=== PATIENT | female | born 1955 | race Caucasian/White ===

== ENCOUNTER 2020-04-21 09:56 | Outpatient (REF) | payer MEDICARE, MEDICAID, SELFPAY ==
[2020-04-23 18:27] LABS: HPV mRNA E6/E7 Not Detected (Not Detected)
== END 2020-04-21 09:57 | disposition home or self-care (01) ==
LOC: HO.LAB 09:56
PROVIDERS: Referring Provider Internal Medicine; Visit Provider Obstetrics & Gynecology
DX: Z01.419 Encounter for gynecological examination (general) (routine) without abnormal findings (principal); R30.0 Dysuria; N95.0 Postmenopausal bleeding
CPT/HCPCS: 87086; 87147; 87624; 87625; 88142; 88305

== ENCOUNTER 2020-07-30 10:44 | Outpatient (REF) | payer MEDICARE, MEDICAID, SELFPAY ==
--- NOTE | 2020-07-30 10:48 | US_ITS ---
EXAMINATION: ULTRASOUND OF THE PELVIS CLINICAL INFORMATION: Postmenopausal bleeding. COMPARISON: 10/05/2017. TECHNIQUE: Transabdominal pelvic ultrasound. The patient refused the transvaginal examination. FINDINGS: The uterus is normal in size and appearance, measuring 7.5 x 4.5 x 5.2 cm longitudinally, anteroposteriorly and transversely. The endometrial stripe thickness is upper limit of normal, measuring 0.5 cm in thickness. No focal myometrial mass is seen. The right ovary is not seen. The left ovary measures 1.9 x 2.1 x 1.4 cm. No adnexal mass or free fluid collection seen. US/US pelvic complete IMPRESSION: Normal appearance of the uterus on this transabdominal evaluation. Endometrial thickness at the upper limit of normal. The right ovary is not seen. No adnexal mass.
== END 2020-07-30 10:45 | disposition home or self-care (01) ==
LOC: HO.US 10:44
PROVIDERS: Visit Provider Obstetrics & Gynecology
DX: N95.0 Postmenopausal bleeding (principal)
CPT/HCPCS: 76856

== ENCOUNTER → 2020-08-03 13:48 | Outpatient (BNVA) | payer MEDICARE, MEDICAID, SELFPAY | PROVIDERS: Visit Provider Obstetrics & Gynecology | DX: N95.0 Postmenopausal bleeding (principal) | CPT/HCPCS: 99212 ==

== ENCOUNTER → 2020-08-11 07:51 | Outpatient (BNVA) | payer MEDICARE, MEDICAID, SELFPAY | PROVIDERS: Visit Provider Obstetrics & Gynecology | DX: N95.0 Postmenopausal bleeding (principal) | CPT/HCPCS: Q3014 ==

== ENCOUNTER 2020-08-13 08:52 | Day surgery (SDC) | payer MEDICARE, MEDICAID, SELFPAY ==
[2020-08-07 13:20] VITALS: BMI 53.2
--- NOTE | 2020-08-12 12:20 | P.CONAN_ITS ---
Documented by User: Anuradha Mckeon 08/12/20 12:29 HPI - Anesthesia Eval Consult details Narrative: 64yo F for Salpingectomy Laproscopic PMFSH Active Problems Active Problems: All Active Problems (Updated 08/07/20 @ 13:28 by Lori Huertas) Postmenopausal bleeding (Acute) Coronary artery disease (Acute) Hypercholesterolemia (Acute) Obesity (Acute) GERD (gastroesophageal reflux disease) (Acute) Hypertension (Acute) Obstructive sleep apnea (Acute) Past Medical History Medical History Carpal tunnel syndrome Cholelithiasis Coronary artery disease Depression GERD (gastroesophageal reflux disease) History of back pain Hx of essential hypertension Hypercholesterolemia Hypertension Obesity Obstructive sleep apnea Peripheral neuropathy Peripheral vascular disease Pulmonary nodule, left Seizures Vitamin D deficiency Family History Family History Father Myocardial infarction Mother Medical history unknown Paternal Aunt Breast cancer Surgical History Surgical History H/O foot surgery History of History of carpal tunnel release History of tonsillectomy Hx of cholecystectomy Hx of colonoscopy Stented coronary artery Social History Social History Are you a primary managed care liaison to a significant other at home: No Do you presently have visiting nurse or other home services: No Alcohol intake: never Smoking Status: Former smoker Smoking Quit Date: 2004 Use of substances other than those prescribed or required for medical reasons: No Have you been hit, kicked, punched, or otherwise hurt by someone within the past year? If so, by whom?: No Advance Directives: No Advance Directives Information Provided: No Advance Directives on File: No Recently lost weight without trying: No Sexual orientation: Straight/Heterosexual Gender identity: female Meds Allergies Allergy/AdvReac Type Severity Reaction Status Date / Time adhesive tape [ADHESIVE TAPE] Allergy Intermediate RASH Verified 08/13/20 10:18 atorvastatin Allergy Unknown Unknown Verified 08/13/20 10:18 Home Medications Medication Instructions Recorded Confirmed Last Taken Type docusate sodium 100 mg capsule 100 mg PO DAILY 04/21/20 08/07/20 Unknown History rosuvastatin 20 mg tablet 20 mg PO DAILY 04/21/20 08/07/20 Unknown History lisinopril 20 mg tablet 20 mg PO DAILY 05/05/20 08/07/20 Unknown History gabapentin 100 mg capsule 100 mg PO DAILY PRN cap 06/16/20 08/07/20 Unknown History acetaminophen [Tylenol] 650 mg PO QID PRN 08/07/20 08/07/20 Unknown History aspirin 81 mg PO DAILY 08/07/20 08/07/20 Unknown History fluticasone propionate 1 spray INTRANASAL DAILY 08/07/20 08/07/20 Unknown History metoprolol succinate 25 mg PO DAILY 08/07/20 08/13/20 08/13/20 07:15 History Exam Exam Date and Time: August 12, 2020 1220 Height,Weight and Vital Signs: Height 5 ft 6 in Weight 149.685 kg Narrative Narrative: ECHO 02/2020 LV size nml, LV wall thickness is mildly increased LV sys function nml LVEF 60-65% No RWMA E/E ration suggests increased L side filling pressures Disatolic function is abnormal No significant valve disease No significant pericardial effusion No changes from 2017 Echo. Assessment and Plan Assessment Anesthesia Assessment: Chart Reviewed Documented by User: Shayla Tian 08/13/20 11:50 PMFSH Past Medical History Medical History Carpal tunnel syndrome Cholelithiasis Coronary artery disease Depression GERD (gastroesophageal reflux disease) History of back pain Hx of essential hypertension Hypercholesterolemia Hypertension Obesity Obstructive sleep apnea Peripheral neuropathy Peripheral vascular disease Pulmonary nodule, left Seizures Vitamin D deficiency Family History Family History Father Myocardial infarction Mother Medical history unknown Paternal Aunt Breast cancer Surgical History Surgical History H/O foot surgery History of History of carpal tunnel release History of tonsillectomy Hx of cholecystectomy Hx of colonoscopy Stented coronary artery Social History Social History Are you a primary managed care liaison to a significant other at home: No Do you presently have visiting nurse or other home services: No Alcohol intake: never Smoking Status: Former smoker Smoking Quit Date: 2004 Use of substances other than those prescribed or required for medical reasons: No Have you been hit, kicked, punched, or otherwise hurt by someone within the past year? If so, by whom?: No Advance Directives: No Advance Directives Information Provided: No Advance Directives on File: No Recently lost weight without trying: No Sexual orientation: Straight/Heterosexual Gender identity: female Meds Allergies Allergy/AdvReac Type Severity Reaction Status Date / Time adhesive tape [ADHESIVE TAPE] Allergy Intermediate RASH Verified 08/13/20 10:18 atorvastatin Allergy Unknown Unknown Verified 08/13/20 10:18 Home Medications Medication Instructions Recorded Confirmed Last Taken Type docusate sodium 100 mg capsule 100 mg PO DAILY 04/21/20 08/07/20 Unknown History rosuvastatin 20 mg tablet 20 mg PO DAILY 04/21/20 08/07/20 Unknown History lisinopril 20 mg tablet 20 mg PO DAILY 05/05/20 08/07/20 Unknown History gabapentin 100 mg capsule 100 mg PO DAILY PRN cap 06/16/20 08/07/20 Unknown History acetaminophen [Tylenol] 650 mg PO QID PRN 08/07/20 08/07/20 Unknown History aspirin 81 mg PO DAILY 08/07/20 08/07/20 Unknown History fluticasone propionate 1 spray INTRANASAL DAILY 08/07/20 08/07/20 Unknown History metoprolol succinate 25 mg PO DAILY 08/07/20 08/13/20 08/13/20 07:15 History Exam Airway Mallampati Class: II TM Dist: >3cm Neck ROM: Full Assessment and Plan Assessment Anesthesia Assessment: Anesthesia Plan Discussed and Chart Reviewed Final Anesthetic Review NPO: Yes ASA Class: III Final Preanesthetic Review: No Changes in Pt Med Stat, Meds/Allgs Chart Reviewed, Consent Obtained/Reviewed and Anes Risks/Benef Reviewed Patient Risk: Intermediate Procedure Risk: Low Assessment/Block/Sedation in SS: Assess/Block/Sedation-SS Anesthetic Plan Anesthetic Plan: MAC: Disposition: Standard PACU
[2020-08-13] VITALS (9 sets, daily range): BP systolic 144–172; BP diastolic 64–82; PULSE 62–75; RESP 16–20; TEMP 36.1–36.7; O2SAT 90–99
[2020-08-13] MEDS: Lactated Ringers 1,000 ML 50 ML IVCONT (10:22)
--- NOTE | 2020-08-13 11:40 | MHC.SHP ---
Pre-Procedural Eval Section A The patient is an INPATIENT: No Changes since office visit: No Cold of Flu in the past 2 weeks, No New Medical Problems, No Changes in Medication and No Patient answered all questions The History & Physical has been completed within 30 days and I have reviewed it.: Yes Section B Chief Complaint: bleeding Allergies: Allergies Allergy/AdvReac Type Severity Reaction Status Date / Time adhesive tape [ADHESIVE TAPE] Allergy Intermediate RASH Verified 08/13/20 10:18 atorvastatin Allergy Unknown Unknown Verified 08/13/20 10:18 Plan I have reviewed the history and physical and performed a pertinent physical examination on my patient. No changes have occurred unless specified.
--- NOTE | 2020-08-13 12:12 | HO.ANESPROP2 ---
[facility] Active Problems Active Problems: All Active Problems (Updated 08/07/20 @ 13:28 by Lori Huertas) Postmenopausal bleeding (Acute) Coronary artery disease (Acute) Hypercholesterolemia (Acute) Obesity (Acute) GERD (gastroesophageal reflux disease) (Acute) Hypertension (Acute) Obstructive sleep apnea (Acute) Past Medical History Medical History Carpal tunnel syndrome Cholelithiasis Coronary artery disease Depression GERD (gastroesophageal reflux disease) History of back pain Hx of essential hypertension Hypercholesterolemia Hypertension Obesity Obstructive sleep apnea Peripheral neuropathy Peripheral vascular disease Pulmonary nodule, left Seizures Vitamin D deficiency Family History Family History Father Myocardial infarction Mother Medical history unknown Paternal Aunt Breast cancer Surgical History Surgical History H/O foot surgery History of History of carpal tunnel release History of tonsillectomy Hx of cholecystectomy Hx of colonoscopy Stented coronary artery Social History Social History Are you a primary childcare center administrator to a significant other at home: No Do you presently have visiting nurse or other home services: No Alcohol intake: never Smoking Status: Former smoker Smoking Quit Date: 2004 Use of substances other than those prescribed or required for medical reasons: No Have you been hit, kicked, punched, or otherwise hurt by someone within the past year? If so, by whom?: No Advance Directives: No Advance Directives Information Provided: No Advance Directives on File: No Recently lost weight without trying: No Sexual orientation: Straight/Heterosexual Gender identity: female Meds Allergies Allergy/AdvReac Type Severity Reaction Status Date / Time adhesive tape [ADHESIVE TAPE] Allergy Intermediate RASH Verified 08/13/20 10:18 atorvastatin Allergy Unknown Unknown Verified 08/13/20 10:18 Active Medications: Current Medications Generic Name Dose Route Start Last Admin Trade Name Freq PRN Reason Stop Dose Admin Lactated Ringer's 1,000 mls @ 50 mls/hr 08/13/20 09:45 08/13/20 10:22 Lr IVCONT 50 mls/hr .Q20H CEE Administration Home Medications Medication Instructions Recorded Confirmed Last Taken Type docusate sodium 100 mg capsule 100 mg PO DAILY 04/21/20 08/07/20 Unknown History rosuvastatin 20 mg tablet 20 mg PO DAILY 04/21/20 08/07/20 Unknown History lisinopril 20 mg tablet 20 mg PO DAILY 05/05/20 08/07/20 Unknown History gabapentin 100 mg capsule 100 mg PO DAILY PRN cap 06/16/20 08/07/20 Unknown History acetaminophen [Tylenol] 650 mg PO QID PRN 08/07/20 08/07/20 Unknown History aspirin 81 mg PO DAILY 08/07/20 08/07/20 Unknown History fluticasone propionate 1 spray INTRANASAL DAILY 08/07/20 08/07/20 Unknown History metoprolol succinate 25 mg PO DAILY 08/07/20 08/13/20 08/13/20 07:15 History Exam Exam Date and Time: August 13, 2020 1212 Height,Weight and Vital Signs: Height 5 ft 6 in Weight 149.685 kg Last Vital Signs Temp 98.0 F 08/13/20 09:45 Pulse 66 08/13/20 09:45 Resp 20 08/13/20 09:45 BP 144/75 H 08/13/20 09:45 Pulse Ox 98 08/13/20 09:45 Airway Mallampati Class: II TM Dist: >3cm Neck ROM: Limited
--- NOTE | 2020-08-13 12:43 | P.OP_ITS ---
Operative Note Operative Note Date of Service: 08/13/20 Narrative: Ms. Salazar is a 64 year old postmenopausal woman with postmenopausal bleeding. She presents today for hysteroscopy d&c for endometrial sampling after EMB in the office was insufficient and pelvic US showed a thickened endometrial lining of 5mm. Surgical Risks: The patient was informed of the risks and benefits of a hysteroscopy with dilation and curettage. Risks included but were not limited to bleeding, infection, injury to the vulva, vagina, or cervix, and uterine perforation with possible need for further surgery. The patient expressed understanding of the risks involved, all questions were answered, and the pa tient consented to the procedure. The patient was taken to the operating room where a time out was confirmed to confirm correct patient and correct procedure. Adequate IV sedation was established. The patient was then positioned on the operating table in the dorsal lithotomy position with her legs supported using stirrups. All pressure points were padded and a warm blanket was placed to maintain control of core body temperature. The patient was then prepped and draped in the usual sterile fashion. A straight catheter was inserted into the bladder and 100mL of urine was obtained. A bivalve speculum was then inserted into the vagina. The anterior lip of the cervix was visualized and grasped using a single tooth tenaculum. The cervix was adequately dilated using Daryl dilators for the introduction of the hysteroscope. The hysteroscope was introduced under direct visualization using normal saline solution as the distending media. The hysteroscope was advanced to the fundus and the entire uterine cavity was inspected. A polyp was noted on the right posterior aspect of the uterus, and on the left side wall. The myosure was introduced and advanced and directed sharp curettage of both polyps was performed until they were removed. A white lesion that appeared almost like a calcification was noted on the left posterior fundus and this was also removed with the myosure. The hysteroscope was then removed with the myosure within the hysteroscope and a sharp curetting was performed starting at the 12 o?clock position and rotating a total of 360 degrees in order to cover all surfaces. E ndometrial tissue was obtained and was sent to pathology. Following the curetting, good hemostasis was noted. The single-tooth tenaculum was removed from the anterior lip of the cervix and hemostasis was also noted at the tenaculum puncture sites. The speculum was then removed from the vagina. At the end of the procedure, all needle, sponge, and instrument counts were noted to be correct x2. The patient was transferred to the recovery room in stable condition.
[2020-08-13] MEDS: oxyCODONE HCl Immed Release 5 MG TABLET 10 MG PO (13:05)
[2020-08-13] MEDS: fentaNYL citrate/PF 100 MCG/2 ML VIAL 50 MCG IVPUSH (13:06)
--- NOTE | 2020-08-13 17:46 | HO.POSTANES ---
Post Anesthesia Evaluation Post Anesthesia Evaluation Vital Signs: Vital Signs Temp Pulse Resp BP Pulse Ox 08/13/20 13:51 67 16 160/78 H 99 08/13/20 13:36 66 16 172/75 H 99 08/13/20 13:21 62 16 169/82 H 99 08/13/20 13:15 99 08/13/20 13:12 68 16 90 L 08/13/20 13:06 68 16 170/64 H 97 08/13/20 12:55 71 16 171/74 H 97 08/13/20 12:40 97 F 75 16 163/71 H 97 08/13/20 09:45 98.0 F 66 20 144/75 H 98 Anesthesia: Monitored Mental Status: Awake Pain Control: Satisfactory Nausea/Vomiting: None Hydration: Adequate Anesthesia-Related Issues: No Anes. Related Issues
== END 2020-08-13 15:06 | disposition home or self-care (01) ==
LOC: HO.SSS 08:52
PROVIDERS: Visit Provider Obstetrics & Gynecology
PROC: (CPT 58558; principal; 2020-08-13 11:20)
DX: N95.0 Postmenopausal bleeding (principal); N84.0 Polyp of corpus uteri; Z88.8 Allergy status to other drugs, medicaments and biological substances; G47.33 Obstructive sleep apnea (adult) (pediatric); R56.9 Unspecified convulsions; I10 Essential (primary) hypertension; E66.9 Obesity, unspecified; Z68.43 Body mass index [BMI] 50.0-59.9, adult; Z90.49 Acquired absence of other specified parts of digestive tract; Z79.82 Long term (current) use of aspirin; Z79.899 Other long term (current) drug therapy
CPT/HCPCS: 58558; 88305; J2405; J3010

== ENCOUNTER 2020-12-17 06:31 | Outpatient (REF) | payer MEDICARE, MEDICAID, SELFPAY ==
[2020-12-17 06:50] LABS: MANUAL DIFF FLAG NO
[2020-12-17 07:04] LABS: Basophils Percent Auto 0.3 % (0-2); Eosinophils Absolute Auto 0.4 X10*3/uL (0.0-0.4); Eosinophils Percent Auto 4.5 % (0-4); Hematocrit 44.4 % (37-47); Hemoglobin 14.3 g/dl (12.0-16.0); Imm Gran Abs Auto 0.03 X10*3/uL (0.00-0.03); Imm Gran Pct Auto 0.3 % (0.0-0.4); Lymphocytes Absolute Auto 2.9 X10*3/uL (1.2-4.9); Lymphocytes Percent Auto 32.2 % (20-40); Mean Corpuscular HGB Conc 32.2 g/dl (31.0-35.0); Mean Corpuscular Hemoglobin 27.7 pg (27.0-33.0); Mean Platelet Volume 11.7 fL (9.4-12.3); Monocytes Absolute Auto 0.9 X10*3/uL (0.1-1.2); Monocytes Percent Auto 10.4 % (2-11); Neutrophils Absolute Auto 4.6 X10*3/uL (2.0-8.3); Neutrophils Percent Auto 52.3 % (45-73); Platelet Count 223 X10*3/uL (160-400); Red Blood Count 5.16 X10*6/uL (4.20-5.50); Red Cell Distribution Width 15.2 % (11.0-16.0); White Blood Count 8.8 X10*3/uL (4.8-10.8)
[2020-12-17 07:13] LABS: Alanine Aminotransferase 26 U/L (0-31); Albumin Level 3.9 g/dL (3.5-5.0); Alkaline Phosphatase 196 U/L (39-117); Anion Gap 11 (12-20); Aspartate Amino Transferase 32 U/L (5-31); Bilirubin Total 0.5 mg/dL (0.0-1.0); Blood Urea Nitrogen 15 mg/dL (9-16); Calcium 9.5 mg/dL (8.4-10.2); Carbon Dioxide 31 mmol/L (22-29); Chloride 103 mmol/L (96-108); Cholesterol 205 mg/dL; Estimated Glomerular Filt Rate > 60; Glucose Random 97 mg/dL (60-115); HDL Cholesterol 54 mg/dL; LDL Cholesterol Calculated 128 mg/dl; Potassium 4.7 mmol/L (3.3-5.1); Sodium 140 mmol/L (135-145); Total Protein 7.1 g/dL (6.5-8.0); Triglycerides 116 mg/dL
[2020-12-17 07:35] LABS: Free T4 (Free Thyroxine) 1.19 ng/dL (0.71-1.85); Thyroid Stimulating Hormone 1.34 uIU/mL (0.32-4.0)
[2020-12-17 07:47] LABS: Folate 13.9 ng/mL (> or = 4.0); Vitamin B12 564 pg/mL (200-900)
[2020-12-17 08:56] LABS: Glucose Urine UA NEG (NEG); Leukocyte Esterase Urine 1+ (NEG); Nitrite Urine NEG (NEG); Specific Gravity - Urine 1.025 (1.005-1.025); UACC Culture Trigger YES; Urine Blood NEG (NEG); Urine Ketones NEG (NEG); Urine Protein NEG (NEG-TRACE)
[2020-12-17 09:07] LABS: Appearance Urine CLOUDY; Color Urine YELLOW
[2020-12-17 09:14] LABS: Bacteria Urine 1+ /LPF; Mucus Urine 2+ /LPF; RBC Urine 0 /HPF (0); Squamous Epithelial Cell Urine 2+ /LPF
== END 2020-12-17 06:32 | disposition home or self-care (01) ==
LOC: HO.LAB 06:31
PROVIDERS: PCP Internal Medicine; Visit Provider Internal Medicine
DX: I10 Essential (primary) hypertension (principal); I25.10 Atherosclerotic heart disease of native coronary artery without angina pectoris; E78.00 Pure hypercholesterolemia, unspecified; R30.0 Dysuria
CPT/HCPCS: 36415; 80053; 80061; 81001; 81003; 82306; 82607; 82746; 84439; 84443; 85025; 87086; 87088; 87186

== ENCOUNTER 2020-12-24 08:32 | Outpatient (REF) | payer MEDICARE, MEDICAID, SELFPAY ==
--- NOTE | ~2020-12-24 | MM_ITS ---
EXAMINATION: MM SCREENING DIGITAL BREAST TOMOSYNTHESIS, BILATERAL CLINICAL INFORMATION: Screening. Asymptomatic. The lifetime risk of breast cancer based on the Tyrer-Cuzick Model is 8%. COMPARISON: Mammography: 06/10/2016, 06/03/2016, 08/30/2014; bilateral breast ultrasound 06/10/2016 TECHNIQUE: Digital breast tomosynthesis is performed in both the craniocaudal and mediolateral oblique views along with computer-aided detection (CAD). Synthesized 2D images are generated from the tomosynthesis. Additional bilateral MLO views are provided. FINDINGS: There are scattered areas of fibroglandular density (ACR BI-RADS breast composition Category b). Parenchymal pattern is similar to prior exams. There is no developing density or interval mass or architectural abnormality. There are no suspicious calcifications. Scattered bilateral punctate calcifications are again seen. The axilla and skin contours are unremarkable. MM/MM tomosynthesis screening BI IMPRESSION: No mammographic evidence of malignancy. ASSESSMENT: BI-RADS 2: Benign RECOMMENDATION: Routine annual mammography screening. This patient's information was entered into a reminder system with a target due date for their next mammogram.
== END 2020-12-24 08:33 | disposition home or self-care (01) ==
LOC: HO.MAMMO 08:32
PROVIDERS: Visit Provider Internal Medicine
DX: Z12.31 Encounter for screening mammogram for malignant neoplasm of breast (principal)
CPT/HCPCS: 77063; 77067

== ENCOUNTER 2021-07-20 08:07 | Outpatient (REF) | payer MEDICARE, MEDICAID, SELFPAY ==
--- NOTE | ~2021-07-20 | US_ITS ---
EXAMINATION: US ABDOMEN COMPLETE CLINICAL INFORMATION: Abnormal findings of blood chemistry. GERD. COMPARISON: CT abdomen 02/27/2012 report only. Images not available. TECHNIQUE: Real-time imaging of the abdominal viscera. Technically difficult study secondary to body habitus. FINDINGS: PANCREAS: Normal. ABDOMINAL AORTA: The proximal, mid, and distal segments are normal in caliber. INFERIOR VENA CAVA: Visualized portions are normal. LIVER: The liver is normal in size. The liver contour is normal. Liver echotexture is increased. No focal hepatic lesion. There is no intrahepatic biliary duct dilatation seen. GALLBLADDER: Surgically absent. COMMON BILE DUCT: Normal in caliber measuring 0.4 cm in diameter. RIGHT KIDNEY: Normal. No hydronephrosis. No renal calculi or focal parenchymal lesions. The kidney measures 12.2 cm in maximum dimension. LEFT KIDNEY: Normal. No hydronephrosis. No renal calculi or focal parenchymal lesions. The kidney measures 11.2 cm in maximum dimension. SPLEEN: Normal. The spleen measures 9.2 cm in maximum dimension. FREE FLUID: None. US/US abdomen complete IMPRESSION: Limited exam. Echogenic liver probably representing fatty infiltration.
== END 2021-07-20 08:08 | disposition home or self-care (01) ==
LOC: HO.US 08:07
PROVIDERS: PCP Internal Medicine; Visit Provider Internal Medicine
DX: R79.89 Other specified abnormal findings of blood chemistry (principal); R74.8 Abnormal levels of other serum enzymes; K21.9 Gastro-esophageal reflux disease without esophagitis
CPT/HCPCS: 76700

== ENCOUNTER 2021-09-10 08:56 | Outpatient (REF) | payer MEDICARE, MEDICAID, SELFPAY ==
--- NOTE | ~2021-09-10 | XR_ITS ---
EXAMINATION: XR CHEST CLINICAL INFORMATION: This is a 65-year-old female. Covid 19. COMPARISON: Comparison is made to a preliminary image from a CT scan dated 12/23/2015. TECHNIQUE: 2 views of the chest were obtained. FINDINGS: There is a probable subcentimeter granuloma in the left midlung field which was present previously and appears unchanged. On the lateral view there are increased patchy markings in the medial segment of the right middle lobe. There are also in the left lower lobe. This may represent subsegmental pneumonitis. The pulmonary vascularity appears within normal limits and there is no congestive heart failure. The cardiomediastinal silhouette appears within normal limits. The diaphragm is sharp and there are no pleural effusions. Degenerative disc disease with associated bony changes are noted in the thoracic spine. Multiple surgical clips are seen in the right upper quadrant likely from a previous cholecystectomy. XR/XR chest 2V IMPRESSION: 1. Possible subsegmental pneumonitis in the medial segment of the right middle lobe and the left lower lobe.
[2021-09-10 10:09] LABS: Appearance Urine CLOUDY; Color Urine YELLOW; Glucose Urine UA NEG (NEG); Leukocyte Esterase Urine 1+ (NEG); Nitrite Urine POS (NEG); Specific Gravity - Urine 1.025 (1.005-1.025); UACC Culture Trigger YES; Urine Blood 2+ (NEG); Urine Ketones NEG (NEG); Urine Protein NEG (NEG-TRACE)
[2021-09-10 10:40] LABS: B Type Natriuretic Peptide 26 pg/mL (<100)
[2021-09-10 10:48] LABS: Alanine Aminotransferase 21 U/L (0-31); Albumin Level 3.9 g/dL (3.5-5.0); Alkaline Phosphatase 178 U/L (39-117); Anion Gap 12 (12-20); Aspartate Amino Transferase 25 U/L (5-31); Bilirubin Direct 0.2 mg/dL (0.0-0.5); Bilirubin Total 0.5 mg/dL (0.0-1.0); Blood Urea Nitrogen 17 mg/dL (9-16); Calcium 9.7 mg/dL (8.4-10.2); Carbon Dioxide 30 mmol/L (22-29); Chloride 103 mmol/L (96-108); Estimated Glomerular Filt Rate > 60; Gamma Glutamyl Transpeptidase 111 U/L (7-33); Glucose Random 92 mg/dL (60-115); Potassium 4.6 mmol/L (3.3-5.1); Sodium 140 mmol/L (135-145); Total Protein 7.3 g/dL (6.5-8.0)
[2021-09-10 11:09] LABS: Bacteria Urine 2+ /LPF; Calcium Oxalate Crystals Urine TRACE /LPF; Squamous Epithelial Cell Urine 2+ /LPF
[2021-09-10 11:25] LABS: Phenytoin Dilantin 8.8 ug/mL (10.0-20.0)
[2021-09-14 15:11] LABS: Mitochondrial Antibodies NEGATIVE (NEGATIVE)
[2021-09-15 05:22] LABS: Angiotensin Converting Enzyme 17 U/L (9-67)
[2021-09-15 21:42] LABS: 5' Nucleotidase 6 U/L (0-10)
[2021-09-17 22:22] LABS: Alk.Phos Iso. Macrohepatic 0 % (<=0); Alk.Phos Isoenzymes Bone 33 % (28-66); Alk.Phos Isoenzymes Intest 0 % (1-24); Alk.Phos Isoenzymes Liver 67 % (25-69); Alk.Phos Isoenzymes Placental 0 % (<=0); Alk.Phos Isoenzymes Total 166 U/L (37-153)
== END 2021-09-10 08:57 | disposition home or self-care (01) ==
LOC: HO.LAB 08:56
PROVIDERS: PCP Internal Medicine; Visit Provider Internal Medicine
DX: I25.10 Atherosclerotic heart disease of native coronary artery without angina pectoris (principal); R74.8 Abnormal levels of other serum enzymes; R30.0 Dysuria; U07.1 COVID-19; R56.9 Unspecified convulsions; R79.89 Other specified abnormal findings of blood chemistry; E78.00 Pure hypercholesterolemia, unspecified
CPT/HCPCS: 36415; 71046; 80053; 80185; 81001; 81003; 82164; 82248; 82977; 83880; 83915; 84080; 86255; 86256; 87086; 87088; 87147; 87186

== ENCOUNTER 2022-01-27 09:30 | Outpatient (REF) | payer MEDICARE, MEDICAID, SELFPAY ==
--- NOTE | ~2022-01-27 | MM_ITS ---
EXAMINATION: MM SCREENING DIGITAL BREAST TOMOSYNTHESIS, BILATERAL CLINICAL INFORMATION: Screening. Asymptomatic. The lifetime risk of breast cancer based on the Tyrer-Cuzick Model is 12%. COMPARISON: Mammography: 12/24/2020, 06/10/2016, 06/03/2016; bilateral breast ultrasound 06/10/2016 TECHNIQUE: Digital breast tomosynthesis is performed in both the craniocaudal and mediolateral oblique views along with computer-aided detection (CAD). Synthesized 2D images are generated from the tomosynthesis. Additional right MLO view is provided FINDINGS: There are scattered areas of fibroglandular density (ACR BI-RADS breast composition Category b). Breast tissue composition borders on predominantly fatty. There is fine fibronodular pattern anterior breasts similar to prior studies. No developing density or interval mass or architectural abnormality. No abnormal calcifications. The axilla are unremarkable. No significant changes. MM/MM tomosynthesis screening BI IMPRESSION: No mammographic evidence of malignancy. ASSESSMENT: BI-RADS 2: Benign RECOMMENDATION: Routine annual mammography screening. This patient's information was entered into a reminder system with a target due date for their next mammogram.
== END 2022-01-27 09:31 | disposition home or self-care (01) ==
LOC: HO.MAMMO 09:30
PROVIDERS: Visit Provider Internal Medicine
DX: Z12.31 Encounter for screening mammogram for malignant neoplasm of breast (principal)
CPT/HCPCS: 77063; 77067

== ENCOUNTER 2022-02-26 08:47 | Outpatient (REF) | payer MEDICARE, MEDICAID, SELFPAY ==
[2022-02-26 09:14] LABS: MANUAL DIFF FLAG NO
[2022-02-26 10:00] LABS: Basophils Percent Auto 0.5 % (0-2); Eosinophils Absolute Auto 0.3 X10*3/uL (0.0-0.4); Eosinophils Percent Auto 3.4 % (0-4); Hematocrit 43.4 % (37.0-47.0); Hemoglobin 14.2 g/dl (12.0-16.0); Imm Gran Abs Auto 0.02 X10*3/uL (0.00-0.03); Imm Gran Pct Auto 0.3 % (0.0-0.4); Lymphocytes Percent Auto 25.1 % (20-40); Mean Corpuscular HGB Conc 32.7 g/dl (31.0-35.0); Mean Corpuscular Hemoglobin 28.7 pg (27.0-33.0); Mean Corpuscular Volume 87.7 fL (80.0-98.0); Mean Platelet Volume 11.5 fL (9.4-12.3); Monocytes Absolute Auto 0.7 X10*3/uL (0.1-1.2); Neutrophils Absolute Auto 4.8 x10*3/uL (2.0-8.3); Neutrophils Percent Auto 61.7 % (45-73); Platelet Count 224 X10*3/uL (160-400); Red Blood Count 4.95 X10*6/uL (4.20-5.50); Red Cell Distribution Width 15.4 % (11.0-16.0); White Blood Count 7.9 X10*3/uL (4.8-10.8)
[2022-02-26 10:11] LABS: Estimated Average Glucose 123 mg/dL; Hemoglobin A1C 152.5629 umol/L; Hemoglobin A1c % 5.9 %
[2022-02-26 10:30] LABS: Phenytoin Dilantin 15.9 ug/mL (10.0-20.0)
[2022-02-26 10:48] LABS: Alanine Aminotransferase 25 U/L (0-31); Albumin Level 3.8 g/dL (3.5-5.0); Alkaline Phosphatase 162 U/L (39-117); Anion Gap 17 (12-20); Aspartate Amino Transferase 31 U/L (5-31); Bilirubin Total 0.4 mg/dL (0.0-1.0); Blood Urea Nitrogen 19 mg/dL (9-16); Calcium 9.3 mg/dL (8.4-10.2); Carbon Dioxide 24 mmol/L (22-29); Chloride 104 mmol/L (96-108); Cholesterol 187 mg/dL; Estimated Glomerular Filt Rate > 60; Glucose Random 97 mg/dL (60-115); HDL Cholesterol 57 mg/dL; LDL Cholesterol Calculated 118 mg/dl; Potassium 4.6 mmol/L (3.3-5.1); Sodium 140 mmol/L (135-145); Total Protein 7.7 g/dL (6.5-8.0); Triglycerides 63 mg/dL
[2022-02-26 10:55] LABS: Folate 17.4 ng/mL (> or = 4.0); Uric Acid 6.6 mg/dL (2.4-5.7); Vitamin B12 664 pg/mL (200-900)
[2022-02-26 11:06] LABS: Free T4 (Free Thyroxine) 0.97 ng/dL (0.71-1.85); Thyroid Stimulating Hormone 1.44 uIU/mL (0.32-4.0); Vitamin D 25-OH Total 35.3 ng/mL (>30)
[2022-02-26 11:09] LABS: Appearance Urine Clear; Color Urine Dark Yellow; Glucose Urine UA Negative (Negative); Leukocyte Esterase Urine Moderate (2+) (Negative); Nitrite Urine Positive (Negative); PH 5.5 (5.0-8.0); Specific Gravity - Urine 1.025 (1.005-1.025); Urine Blood Negative (Negative); Urine Ketones Negative (Negative); Urine Protein Trace mg/dL (Neg-Trace)
[2022-02-26 11:41] LABS: Hyaline Casts Urine 0-2 /LPF (0-2); RBC Urine 0-2 /HPF (0-2); UACC Culture Trigger YES; WBC Urine >50 /HPF (0-5)
[2022-02-26 11:43] LABS: Bacteria Urine Trace (None Seen)
== END 2022-02-26 08:48 | disposition home or self-care (01) ==
LOC: HO.LAB 08:47
PROVIDERS: PCP Internal Medicine; Visit Provider Internal Medicine
DX: R56.9 Unspecified convulsions (principal); E78.00 Pure hypercholesterolemia, unspecified; I25.10 Atherosclerotic heart disease of native coronary artery without angina pectoris; Z79.899 Other long term (current) drug therapy
CPT/HCPCS: 36415; 80053; 80061; 80185; 81001; 81003; 82306; 82607; 82746; 83036; 84439; 84443; 84550; 85025; 87086; 87088; 87186

== ENCOUNTER 2022-11-01 14:09 | Outpatient (REF) | payer MEDICARE, MEDICAID, SELFPAY ==
--- NOTE | ~2022-11-01 | XR_ITS ---
EXAMINATION: XR KNEE AP STANDING CLINICAL INFORMATION: Bilateral primary osteoarthritis COMPARISON: None available. TECHNIQUE: AP bilateral standing view of the knees was obtained. FINDINGS: No fracture or dislocation. Arthritis at the medial and lateral right femoral tibial joints. Arthritis at the left medial femoral tibial joint. Normal soft tissues. XR/XR knee standing BI IMPRESSION: Bilateral arthritis, right greater than left.
[2022-11-01 14:34] LABS: MANUAL DIFF FLAG NO
[2022-11-01 14:53] LABS: Basophils Percent Auto 0.5 % (0-2); Eosinophils Absolute Auto 0.4 X10*3/uL (0.0-0.4); Eosinophils Percent Auto 4.1 % (0-4); Hematocrit 44.4 % (37.0-47.0); Hemoglobin 14.5 g/dl (12.0-16.0); Imm Gran Abs Auto 0.04 X10*3/uL (0.00-0.03); Imm Gran Pct Auto 0.5 % (0.0-0.4); Lymphocytes Absolute Auto 2.3 X10*3/uL (1.2-4.9); Lymphocytes Percent Auto 27.1 % (20-40); Mean Corpuscular HGB Conc 32.7 g/dl (31.0-35.0); Mean Corpuscular Hemoglobin 28.3 pg (27.0-33.0); Mean Corpuscular Volume 86.5 fL (80.0-98.0); Mean Platelet Volume 11.9 fL (9.4-12.3); Monocytes Absolute Auto 0.7 X10*3/uL (0.1-1.2); Monocytes Percent Auto 7.6 % (2-11); Neutrophils Absolute Auto 5.2 x10*3/uL (2.0-8.3); Neutrophils Percent Auto 60.2 % (45-73); Platelet Count 223 X10*3/uL (160-400); Red Blood Count 5.13 X10*6/uL (4.20-5.50); White Blood Count 8.6 X10*3/uL (4.8-10.8)
[2022-11-01 15:26] LABS: Alanine Aminotransferase 16 U/L (0-31); Albumin Level 3.8 g/dL (3.5-5.0); Alkaline Phosphatase 168 U/L (39-117); Anion Gap 12 (12-20); Aspartate Amino Transferase 29 U/L (5-31); Bilirubin Total 0.4 mg/dL (0.0-1.0); Blood Urea Nitrogen 12 mg/dL (9-16); Calcium 9.6 mg/dL (8.4-10.2); Carbon Dioxide 29 mmol/L (22-29); Chloride 105 mmol/L (96-108); Cholesterol 145 mg/dL; Estimated Glomerular Filt Rate > 60; Glucose Random 121 mg/dL (60-115); HDL Cholesterol 44 mg/dL; LDL Cholesterol Calculated 68 mg/dl; Phenytoin Dilantin 4.9 ug/mL (10.0-20.0); Potassium 4.3 mmol/L (3.3-5.1); Sodium 142 mmol/L (135-145); Total Protein 7.2 g/dL (6.5-8.0); Triglycerides 167 mg/dL
[2022-11-01 15:32] LABS: Appearance Urine Cloudy; Color Urine Dark Yellow; Glucose Urine UA Negative (Negative); Leukocyte Esterase Urine Moderate (2+) (Negative); Nitrite Urine Negative (Negative); PH 5.5 (5.0-9.0); Specific Gravity - Urine 1.025 (1.005-1.025); UMIC TRIGGER UA YES; UMIC TRIGGER UACC YES; Urine Blood Negative (Negative); Urine Ketones Trace mg/dL (Negative); Urine Protein Negative (Neg-Trace)
[2022-11-01 15:54] LABS: Folate 10.8 ng/mL (> or = 4.0); Free T4 (Free Thyroxine) 1.02 ng/dL (0.71-1.85); Thyroid Stimulating Hormone 0.98 uIU/mL (0.32-4.0); Vitamin B12 817 pg/mL (200-900); Vitamin D 25-OH Total 30.3 ng/mL (>30)
[2022-11-01 16:13] LABS: Bacteria Urine None Seen (None Seen); Calcium Oxalate Crystals Urine Present; Hyaline Casts Urine 0-2 /LPF (0-2); Other Crystals Urine Present; UACC Culture Trigger YES; WBC Urine 21-50 /HPF (0-5)
== END 2022-11-01 14:10 | disposition home or self-care (01) ==
LOC: HO.LAB 14:09
PROVIDERS: PCP Internal Medicine; Visit Provider Internal Medicine
DX: R56.9 Unspecified convulsions (principal); T42.0X1A Poisoning by hydantoin derivatives, accidental (unintentional), initial encounter; M17.0 Bilateral primary osteoarthritis of knee; E78.00 Pure hypercholesterolemia, unspecified; R82.90 Unspecified abnormal findings in urine; Z79.899 Other long term (current) drug therapy
CPT/HCPCS: 36415; 73565; 80053; 80061; 80185; 81001; 82306; 82607; 82746; 84439; 84443; 85025; 87086

== ENCOUNTER 2023-01-19 15:16 | Outpatient (AMB) | payer MEDICARE, MEDICAID, SELFPAY ==
--- NOTE | 2023-01-19 15:19 | A.OFFVIS_ITS ---
Intake Vital Signs 01/19/23 15:20 Height 5 ft 7 in Weight 318 lb BMI 49.8 BP 134/70 Intake Visit Reasons: ? yeast/BV Intake Note: had a little spotting and says has been getting UTI every month since July, brown discharge. The patient agreed to use of a spanish medical interpreter during this encounter. Scribed for DOMINIC Hassan by Adeline Arora spanish medical interpreter, on 01/19/2023 at 3:29 pm EST. Hvac Engineering Technician Required: No Information Interpreted: non-clinical & clinical Choir Director: Choir Director Present (Aidyn) Allergies adhesive tape [ADHESIVE TAPE] Allergy (Intermediate, Verified 01/19/23 15:26) RASH atorvastatin Allergy (Unknown, Verified 01/19/23 15:26) Unknown Is last menstrual period known: No Post menopausal: Yes HPI HPI Comments History of Present Illness Details She is here today with complaints of a spotting x one episode, small amount of red blood noted on her panty liner. Denies any rectal bleeding. Hx. UTI's every month since July. Denies hematuria, vaginal itching/irritation. PFSH Medical History Carpal tunnel syndrome Cholelithiasis Coronary artery disease Depression GERD (gastroesophageal reflux disease) History of back pain Hx of essential hypertension Hypercholesterolemia Hypertension Obesity Obstructive sleep apnea Peripheral neuropathy Peripheral vascular disease Pulmonary nodule, left Seizures Vitamin D deficiency Surgical History H/O foot surgery History of History of carpal tunnel release History of tonsillectomy Hx of cholecystectomy Hx of colonoscopy Stented coronary artery Family History Father Myocardial infarction Mother Medical history unknown Paternal Aunt Breast cancer Maternal Aunt Ovarian cancer Social History Housing: Apartment Are you a primary child care to a significant other at home: No Do you presently have visiting nurse or other home services: No Alcohol intake: never Patient Tobacco Use Status: Never used Tobacco e-Cigarette/Vaping Use: Never Used Second Hand Smoke Exposure: No Current occupational status: disabled Sexual orientation: Straight/Heterosexual Gender identity: Female Cognitive needs: No Hearing needs: No Vision needs: No Female Reproductive History Menstrual Date of last pap smear: 04/22/20 (negative) Date of Mammogram: 01/27/22 Physical Exam Vital Signs: Last Vital Signs BP 134/70 01/19/23 15:20 BMI result Body Mass Index 49.8 Const General: cooperative, healthy appearing, comfortable, no acute distress, well developed, alert and awake GI Inspection: Yes obesity (large rounded abdomen ) Other: exam limited with body habitus. General: Yes bladder normal to palpation External Female Exam: normal external appearance and normal appearance of the urethra Speculum Exam - Vagina: normal appearance of the vagina, normal palpation and normal vaginal discharge Speculum Exam - Cervix: normal appearance of the cervix and normal palpation Bimanual exam- vagina & uterus: normal bimanual exam, normal palpation, bladder normal to palpation and normal palpation Bimanual Exam- Adnexa, other: normal adnexae and no masses Assessment & Plan Assessment & Plan (1) Postmenopausal bleeding: Code(s): N95.0 - Postmenopausal bleeding Plan: Discussed: Work up including pelvic US and EMB. The EMB purpose was explained to rule out atypia, hyperplasia and uterine cancer. Reviewed procedure and instructed to take Ibuprofen with food 1 hour prior to procedure. Go to ER with any prolonged or heavy bleeding. All of her questions and concerns were addressed to the best of my ability and shared decision making. She is agreeable to plan of care. Orders: Orders US pelvic and transvaginal Today N95.0 - Postmenopausal bleeding Coding Level of Care Code New Pt Level 4 (75534) Diagnoses Postmenopausal bleeding N95.0
[2023-01-19 15:20] VITALS: BP 134/70; BMI 49.8
== END 2023-01-19 15:54 | disposition home or self-care (01) ==
LOC: HO.HWS 15:16
PROVIDERS: PCP Internal Medicine; Visit Provider Advanced Practice Midwife
DX: N95.0 Postmenopausal bleeding (principal)
CPT/HCPCS: 99204

== ENCOUNTER → 2023-01-19 15:16 | Outpatient (BNVA) | payer MEDICARE, MEDICAID, SELFPAY | PROVIDERS: PCP Internal Medicine; Visit Provider Advanced Practice Midwife | DX: N95.0 Postmenopausal bleeding (principal) | CPT/HCPCS: 99202 ==

== ENCOUNTER 2023-01-26 12:54 | Outpatient (REF) | payer MEDICARE, MEDICAID, SELFPAY ==
--- NOTE | ~2023-01-26 | US_ITS ---
EXAMINATION: US PELVIS CLINICAL INFORMATION: Postmenopausal bleeding COMPARISON: None available. TECHNIQUE: Ultrasound of the pelvis is performed using both transabdominal and transvaginal transducers along with Doppler. Transvaginal imaging is performed due to inadequate visualization transabdominally. FINDINGS: Uterus: The uterus is anteverted and measures 8.3 x 4.4 x 4.8 cm. Uterus appears diffusely heterogeneous. No discrete fibroids are identified. The double wall endometrial thickness is 1.1 cm. Endometrium appears heterogeneous with multiple spaces. Trace amount of fluid in the cervix with nabothian cysts. No significant free fluid in the pelvis. Left ovary measures 1.8 x 1.5 x 2.0 cm, volume 2.8 mL and is seen only on transabdominal ultrasound images, grossly unremarkable. Right ovary not visualized. Limited visualization due to bowel gas. US/US pelvic and transvaginal IMPRESSION: Abnormal endometrium with thickness of 1.1 cm and multiple cystic spaces, suspicious finding in this patient with postmenopausal bleeding. GYNECOLOGIC CONSULTATION AND POSSIBLE BIOPSY RECOMMENDED. This study was presented today 01/30/2023 at 10:15 AM for interpretation. PSA staff will provide results to referring provider at this time.
== END 2023-01-26 12:55 | disposition home or self-care (01) ==
LOC: HO.US 12:54
PROVIDERS: PCP Internal Medicine; Visit Provider Advanced Practice Midwife
DX: N95.0 Postmenopausal bleeding (principal)
CPT/HCPCS: 76830; 76856

== ENCOUNTER 2023-03-24 14:06 | Outpatient (AMB) | payer MEDICARE, MEDICAID, SELFPAY ==
[2023-03-24 14:14] VITALS: BP 130/72; PULSE 71; O2SAT 97; BMI 48.4
--- NOTE | 2023-03-24 14:14 | MHC.PC.OV ---
Vital Signs 03/24/23 14:14 Height 5 ft 7 in Weight 309 lb BMI 48.4 BP 130/72 Blood Pressure Location Lt brachial Position Sitting Pulse 71 Pulse Source Pulse Oximeter Pulse Oximetry (%) 97 Oxygen Delivery Method Room Air Intake Visit Reasons: obesity Allergies adhesive tape [ADHESIVE TAPE] Allergy (Intermediate, Verified 03/24/23 14:14) RASH atorvastatin Allergy (Unknown, Verified 03/24/23 14:14) Unknown Tobacco use date assessed: 12/07/22 Fall risk assessment: No Falls in past year Last assessed Fall Risk: 03/24/23 Dental Screening Dental Screen Date: 03/24/23 Did you have a dental visit in the last 12 months?: No Did you have a dental problem in the last 6 months where you did not have access to dental care?: No Was dental information given to patient?: No HPI obesity HPI Details 67-year-old morbidly obese female with a history of seizures depression coronary artery disease hypercholesterolemia GERD hypertension obstructive sleep apnea coming in for follow-up. Last seen in December 2022. Review of the notes ER visit March 16 for left medial ankle pain and swelling patient had an x-ray on that left ankle no fracture plantar calcaneal spur and Achilles enthesopathy mild degenerative changes. Diagnosis of left ankle cellulitis and patient was placed on colchicine and antibiotics Bactrim and cephalexin. Patient had an ultrasound done in January showing endometrial multiple cystic spaces she has been followed up by OB gynecology. complains of forgetting a lot and wants to get tested PFSH Medical History Carpal tunnel syndrome Cholelithiasis Coronary artery disease Depression GERD (gastroesophageal reflux disease) History of back pain Hx of essential hypertension Hypercholesterolemia Hypertension Obesity Obstructive sleep apnea Peripheral neuropathy Peripheral vascular disease Pulmonary nodule, left Seizures Vitamin D deficiency Surgical History H/O foot surgery History of History of carpal tunnel release History of tonsillectomy Hx of cholecystectomy Hx of colonoscopy Stented coronary artery Family History Father Myocardial infarction Mother Medical history unknown Paternal Aunt Breast cancer Maternal Aunt Ovarian cancer Social History Housing: Apartment Are you a primary group care worker to a significant other at home: No Do you presently have visiting nurse or other home services: No Alcohol intake: never Patient Tobacco Use Status: Never used Tobacco e-Cigarette/Vaping Use: Never Used Second Hand Smoke Exposure: No Current occupational status: disabled Sexual orientation: Straight/Heterosexual Gender identity: Female Cognitive needs: No Hearing needs: No Vision needs: No Questionnaire PHQ-9 Over the last 2 weeks, how often have you been bothered by any of the following problems? 1. Little interest or pleasure in doing things: not at all 2. Feeling down, depressed, or hopeless: not at all 3. Trouble falling or staying asleep, or sleeping too much: not at all 4. Feeling tired or having little energy: not at all 5. Poor appetite or overeating: not at all 6. Feeling bad about yourself - or that you are a failure or have let yourself or your family down: not at all 7. Trouble concentrating on things, such as reading the newspaper or watching television: not at all 8. Moving or speaking so slowly that other people could have noticed. Or the opposite - being so fidgety or restless that you have been moving around a lot more than usual: not at all 9. Thoughts that you would be better off or of hurting yourself in some way: not at all Total score: 0 Depression Screening Interpretation: Negative Source: Developed by Drs. Heraclio Nesbitt, Abdifatah Nogueira and colleagues, with an educational nghia from [employer] Thrive Questionnaire Date Thrive assessed: 10/25/22 AUDIT C Alcohol Use Questionnaire (AUDIT-C) 1. How often do you have a drink containing alcohol?: Never 3. How often do you have six or more drinks on one occasion?: Never Total Score: 0 JUAN-7 AMB Questionnaire JUAN-7 Date JUAN - 7 assessed: 10/25/22 Source: Developed by Drs. Heraclio Nesbitt, Abdifatah Nogueira and colleagues, with an educational nghia from [employer] Physical exam (Primary Care) Vital Signs: Last Vital Signs Pulse 71 03/24/23 14:14 BP 130/72 03/24/23 14:14 Pulse Ox 97 03/24/23 14:14 Oxygen Delivery Method Room Air 03/24/23 14:14 BMI result Body Mass Index 48.4 Tobacco/Smoking Status: Tobacco use Status Tobacco use date assessed 12/07/22 03/24/23 14:22 Patient Tobacco Use Status Never used Tobacco 03/24/23 14:22 e-Cigarette/Vaping Use Never Used 03/24/23 14:22 PHQ-9: PHQ-9 Score PHQ-9: Total score 0 03/24/23 14:22 Depression Screening Interpretation: Negative Thrive Assessment: Date of Thrive Assessment Date Thrive assessed 10/25/22 03/24/23 14:22 Const General: alert; No acute distress Eyes Conjunctivae: conjunctivae normal Resp Auscultation: clear to auscultation bilaterally Cardio Rate: regular rate Rhythm: regular rhythm GI Inspection: Yes normal to inspection Extrem General: Yes normal to inspection and No edema Assessment and Plan Assessment & Plan (1) Coronary artery disease: Comment: STEMI 08/2016 BELINDA to RPDA, Sees Dr Dougherty- [facility] 02/2020 EF 60-65% moderate diastolic dysfunction Code(s): I25.10 - Atherosclerotic heart disease of [place] coronary artery without angina pectoris Qualifiers: Coronary Disease-Associated Artery/Lesion type: [place] artery [place] vs. transplanted heart: [place] heart Associated angina: without angina Qualified Code(s): I25.10 - Atherosclerotic heart disease of [place] coronary artery without angina pectoris Plan: Control the cholesterol, weight, blood pressure (2) Hypercholesterolemia: Code(s): E78.00 - Pure hypercholesterolemia, unspecified Plan: Avoid fried foods, chicken skin, eggs, butter margarine, pastries and meat. Be it pork or beef they have a lot of cholesterol October 2022 last blood work LDL goal of less than 70 (3) Obesity: Code(s): E66.9 - Obesity, unspecified Qualifiers: Obesity type: due to excess calories Obesity classification: adult class 3 (BMI >= 40) Serious obesity comorbidity presence: with serious comorbidity Body mass index: BMI 50.0-59.9 Qualified Code(s): E66.01 - Morbid (severe) obesity due to excess calories; Z68.43 - Body mass index [BMI] 50.0-59.9, adult Plan: Patient has been taking semaglutide and has been losing weight continue with diet and exercise (4) GERD (gastroesophageal reflux disease): Code(s): K21.9 - Gastro-esophageal reflux disease without esophagitis Qualifiers: Esophagitis presence: without esophagitis Qualified Code(s): K21.9 - Gastro-esophageal reflux disease without esophagitis Plan: Avoid the foods that causes that usually spicy foods, tomato products, juices, coffee, soda and foods that your sensitive to. After eating do not lie down, allow 3-4 hours before in lie down. And keep the head of bed above 30 degrees to avoid the acid from going up. (5) Hypertension: Code(s): I10 - Essential (primary) hypertension Qualifiers: Hypertension type: essential hypertension Qualified Code(s): I10 - Essential (primary) hypertension Plan: Continue with blood pressure medication. Decrease salt intake and exercise patient takes lisinopril 20 mg once a day (6) Obstructive sleep apnea: Comment: August 2019, BiPAP uses every night Code(s): G47.33 - Obstructive sleep apnea (adult) (pediatric) Plan: Continue to use the CPAP more than 4 hours a night and benefits from this (7) Breast cancer screening by mammogram: Code(s): Z12.31 - Encounter for screening mammogram for malignant neoplasm of breast Plan: Reminded about mammogram (8) Seizures: Comment: Last seizure 2018 Code(s): R56.9 - Unspecified convulsions Plan: Continue with Dilantin (9) Depression: Comment: counselling Q monday and helps patient (05/2021) Billie Code(s): F32.9 - Major depressive disorder, single episode, unspecified Plan: Continue with counseling and therapy (10) Fatty liver: Code(s): K76.0 - Fatty (change of) liver, not elsewhere classified Plan: low fat diet (11) Memory changes: Code(s): R41.3 - Other amnesia Orders: Orders Phenytoin Dilantin Today R56.9 - Unspecified convulsions Comprehensive Met. Panel Today I25.10 - Atherosclerotic heart disease of [place] coronary artery without angina pectoris Free T4 (Free Thyroxine) Today I25.10 - Atherosclerotic heart disease of [place] coronary artery without angina pectoris Vitamin B12 and Folate Today I25.10 - Atherosclerotic heart disease of [place] coronary artery without angina pectoris Complete Blood Count Auto Diff Today I25.10 - Atherosclerotic heart disease of [place] coronary artery without angina pectoris MM tomosynthesis screening BI Today Z12.31 - Encounter for screening mammogram for malignant neoplasm of breast Thyroid Stimulating Hormone Today I25.10 - Atherosclerotic heart disease of [place] coronary artery without angina pectoris Lipid Panel Today E78.00 - Pure hypercholesterolemia, unspecified, I25.10 - Atherosclerotic heart disease of [place] coronary artery without angina pectoris UA w Microscopic Today I25.10 - Atherosclerotic heart disease of [place] coronary artery without angina pectoris Uric Acid Today I25.10 - Atherosclerotic heart disease of [place] coronary artery without angina pectoris Referrals Neuropsychiatry Referral R41.3 - Other amnesia Medications: Changed From semaglutide for 4 weeks 1 mg (0.75 mL) subcut QWEEK 30 days 3.75 mL 3RF E66.01 - Morbid (severe) obesity due to excess calories, Z68.43 - Body mass index [BMI] 50.0-59.9, adult To semaglutide for 4 weeks 2 mg (0.75 mL) subcut QWEEK 30 days 3.75 mL 3RF E66.01 - Morbid (severe) obesity due to excess calories, Z68.43 - Body mass index [BMI] 50.0-59.9, adult Refilled rosuvastatin (Crestor) 20 mg PO DAILY 30 days 90 tabs 2RF E78.00 - Pure hypercholesterolemia, unspecified lisinopril 20 mg PO DAILY 90 tabs 2RF tramadol 50 mg PO TID 30 days PRN 90 tabs 2RF pain M17.10 - Unilateral primary osteoarthritis, unspecified knee Coding Level of Care Code Est Pt Level 4 (69581) Diagnoses Coronary artery disease involving [place] coronary artery of [place] heart without angina pectoris I25.10 Coronary Disease-Associated Artery/Lesion type: [place] artery [place] vs. transplanted heart: [place] heart Associated angina: without angina Hypercholesterolemia E78.00 Class 3 severe obesity due to excess calories with serious comorbidity and body mass index (BMI) of 50.0 to 59.9 in adult E66.01; Z68.43 Obesity type: due to excess calories Obesity classification: adult class 3 (BMI >= 40) Serious obesity comorbidity presence: with serious comorbidity Body mass index: BMI 50.0-59.9 Gastroesophageal reflux disease without esophagitis K21.9 Esophagitis presence: without esophagitis Essential hypertension I10 Hypertension type: essential hypertension Obstructive sleep apnea G47.33 Breast cancer screening by mammogram Z12.31 Seizures R56.9 Depression F32.9 Fatty liver K76.0 Memory changes R41.3
== END 2023-03-24 14:46 | disposition home or self-care (01) ==
PROVIDERS: PCP Internal Medicine; Visit Provider Internal Medicine
DX: K21.9 Gastro-esophageal reflux disease without esophagitis (principal); E66.01 Morbid (severe) obesity due to excess calories; Z68.43 Body mass index [BMI] 50.0-59.9, adult; I10 Essential (primary) hypertension; R56.9 Unspecified convulsions; F32.9 Major depressive disorder, single episode, unspecified; I25.10 Atherosclerotic heart disease of native coronary artery without angina pectoris; E78.00 Pure hypercholesterolemia, unspecified; G47.33 Obstructive sleep apnea (adult) (pediatric); Z12.31 Encounter for screening mammogram for malignant neoplasm of breast; K76.0 Fatty (change of) liver, not elsewhere classified; R41.3 Other amnesia
CPT/HCPCS: 99214

== ENCOUNTER 2023-03-27 09:57 | Outpatient (REF) | payer MEDICARE, MEDICAID, SELFPAY | END 2023-03-27 09:58 | disposition home or self-care (01) | LOC: HO.LNP 09:57 | PROVIDERS: PCP Internal Medicine; Visit Provider Obstetrics & Gynecology | DX: Z13.89 Encounter for screening for other disorder (principal) | CPT/HCPCS: 88305 ==

== ENCOUNTER 2023-03-27 09:57 | Outpatient (AMB) | payer MEDICARE, MEDICAID, SELFPAY ==
[2023-03-27 10:02] VITALS: BP 136/84; BMI 48.4
--- NOTE | 2023-03-27 10:02 | A.OFFVIS_ITS ---
Intake Vital Signs 03/27/23 10:02 Height 5 ft 7 in Weight 309 lb BMI 48.4 BP 136/84 Intake Visit Reasons: pre op Mail List Librarian Required: Yes Mail List Librarian Language: Domestic Technician Name: Gracie Donnelly Information Interpreted: non-clinical & clinical Domestic Technician: Domestic Technician Present (Gracie) Allergies adhesive tape [ADHESIVE TAPE] Allergy (Intermediate, Verified 03/27/23 10:03) RASH atorvastatin Allergy (Unknown, Verified 03/27/23 10:03) Unknown Is last menstrual period known: No Post menopausal: Yes Patient : No Do you need a note to return to daycare/school/sports/work: Yes (for surgery on monday) HPI HPI Comments History of Present Illness Details Presenting after pelvic ultrasound for follow-up regarding postmenopausal bleeding. Pelvic ultrasound done on 01/30 showed the following: Uterus: The uterus is anteverted and measures 8.3 x 4.4 x 4.8 cm. Uterus appears diffusely heterogeneous. No discrete fibroids are identified. The double wall endometrial thickness is 1.1 cm. Endometrium appears heterogeneous with multiple spaces. Trace amount of fluid in the cervix with nabothian cysts. No significant free fluid in the pelvis. Left ovary measures 1.8 x 1.5 x 2.0 cm, volume 2.8 mL and is seen only on transabdominal ultrasound images, grossly unremarkable. Right ovary not visualized. Limited visualization due to bowel gas. Last co testing done in 06/21 was negative PFSH Medical History History of back pain Depression Cholelithiasis Peripheral vascular disease Peripheral neuropathy Coronary artery disease Carpal tunnel syndrome Hypercholesterolemia Obesity GERD (gastroesophageal reflux disease) Pulmonary nodule, left Hypertension Seizures Obstructive sleep apnea Vitamin D deficiency Hx of essential hypertension Surgical History Hx of colonoscopy History of tonsillectomy Hx of cholecystectomy History of carpal tunnel release H/O foot surgery History of Stented coronary artery Family History Father Myocardial infarction Mother Medical history unknown Paternal Aunt Breast cancer Maternal Aunt Ovarian cancer Social History Housing: Apartment Are you a primary childcare center administrator to a significant other at home: No Do you presently have visiting nurse or other home services: No Alcohol intake: never Patient Tobacco Use Status: Never used Tobacco e-Cigarette/Vaping Use: Never Used Second Hand Smoke Exposure: No Patient : No Current occupational status: disabled Sexual orientation: Straight/Heterosexual Gender identity: Female Cognitive needs: No Hearing needs: No Vision needs: No Female Reproductive History Menstrual Date of last menstrual period: 04/30/20 Total pregnancies: 2 Full term: 2 Date of last pap smear: 04/22/20 (negative) Review of Systems Const All systems reviewed & are unremarkable except as noted in HPI and below Card Reports as per HPI and Reports no additional complaints Resp Reports as per HPI and Reports no additional complaints GI Reports as per HPI and Reports no additional complaints Reports as per HPI Physical Exam Vital Signs: Last Vital Signs BP 136/84 03/27/23 10:02 BMI result Body Mass Index 48.4 General: Yes no CVA tenderness External Female Exam: normal external appearance and normal appearance of the urethra Speculum Exam - Vagina: normal appearance of the vagina, normal palpation, no lesions and no masses Speculum Exam - Cervix: normal appearance of the cervix, normal palpation, no lesions, no masses and nontender Bimanual exam- vagina & uterus: normal bimanual exam, normal palpation, uterine size normal, normal palpation, uterine shape normal, No Cervical tenderness present and non-tender Bimanual Exam- Adnexa, other: normal adnexae Back/Spine/Pelvis Back: no CVA tenderness Office Procedures Endometrial Biopsy Details: The patient was counseled regarding the indication and benefits of endometrial sampling to rule out endometrial pathology including not limited to endometrial hyperplasia or endometrial cancer and others; The alternatives (Either do nothing vs. hysteroscopy D&C) & the risks were discussed with the patient including but not limited: pain, uterine perforation, bleeding, infection, possible injury to bladder, bowel, ureter, possible need for blood transfusion with all its possible risks. The patient verbalized understanding all questions answered and signed consent. The patient was placed into the dorsal lithotomy position; a speculum was inserted in the vagina. Using aseptic technique for the procedure, the cervix was cleansed with Betadine. The anterior lip of the cervix was grasped with a single tooth tenaculum. The uterus was sounded to 7 cm with a 4 mm Pipelle was used. Tissues samples were obtained and placed in formalin, in a patient labeled container and sent to the pathology department. At the end of the procedure, there was minimal bleeding noted The patient tolerated the procedure well and was discharged in good condition with the following instructions: Nothing in the vagina until the bleeding stops. No sex until the bleeding stops, to call if any of the following occurs: fever (>100.4), flu-like symptoms, abdominal pain, heavy bleeding, four smelling vaginal discharge. The patient was instructed to schedule a Follow up appointment in 2 weeks to discuss pathology results of the biopsy and treatment options. This note was generated with a voice recognition program. Some errors may have been overlooked during the review of this note. Sometimes these errors may affect the content or meaning of a given sentence. [id number] Biopsy Assessment & Plan Assessment & Plan (1) Postmenopausal bleeding: Comment: Abnormal endometrium by ultrasound Code(s): N95.0 - Postmenopausal bleeding Plan: Discussed with the patient the pelvic ultrasound findings, the endometrial is heterogenous and abnormal looking, and the endometrial stripe thickenss measured by ultrasound was more than 4mm. The negative predictive value, positive predictive value, Sensitivity, specificity of using ultrasound measurement of endometrial stripe to detecting endometrial pathology including hyperplasia , polyp or cancer were discussed with the patient. Recommended to the patient that the next step is an endometrial sampling via hysteroscopy D&C possible polypectomy versus endometrial biopsy to r/o endometrial pathology including hyperplasia or cancer. All the pros and cons risks and benefits of each approach were discussed with the patient, endometrial biopsy being less invasiv e, office procedure with less sensitivity and inability diagnose a polyp and removal versus hysteroscopy done under anesthesia more invasive more sensitive to endometrial cancer and possibility of diagnosing and endometrial polyp with the possibility of polypectomy. All questions were answered pt verbalized understanding and decided to proceed with endometrial biopsy. EMB done, see procedure Orders: Orders AMB Endometrial Biopsy Today N95.0 - Postmenopausal bleeding Coding Level of Care Code Est Pt Level 3 (31779) Diagnoses Postmenopausal bleeding N95.0 CPT Codes Endometrial Biopsy - CPT: 47236-[id number] Biopsy ([id number])
== END 2023-03-27 10:30 | disposition home or self-care (01) ==
LOC: HO.HWS 09:57
PROVIDERS: PCP Internal Medicine; Visit Provider Obstetrics & Gynecology
DX: N95.0 Postmenopausal bleeding (principal)
CPT/HCPCS: 58100; 99213

== ENCOUNTER 2023-03-27 10:52 | Outpatient (REF) | payer MEDICARE, MEDICAID, SELFPAY ==
[2023-03-27 11:17] LABS: MANUAL DIFF FLAG NO
[2023-03-27 12:09] LABS: Basophils Percent Auto 0.3 % (0-2); Eosinophils Absolute Auto 0.3 X10*3/uL (0.0-0.4); Hematocrit 43.5 % (37.0-47.0); Hemoglobin 14.2 g/dl (12.0-16.0); Imm Gran Abs Auto 0.03 X10*3/uL (0.00-0.03); Imm Gran Pct Auto 0.3 % (0.0-0.4); Lymphocytes Absolute Auto 2.1 X10*3/uL (1.2-4.9); Lymphocytes Percent Auto 20.7 % (20-40); Mean Corpuscular HGB Conc 32.6 g/dl (31.0-35.0); Mean Corpuscular Hemoglobin 29.2 pg (27.0-33.0); Mean Corpuscular Volume 89.5 fL (80.0-98.0); Mean Platelet Volume 11.7 fL (9.4-12.3); Monocytes Absolute Auto 0.7 X10*3/uL (0.1-1.2); Monocytes Percent Auto 7.2 % (2-11); Neutrophils Percent Auto 68.5 % (45-73); Platelet Count 208 X10*3/uL (160-400); Red Blood Count 4.86 X10*6/uL (4.20-5.50); Red Cell Distribution Width 14.6 % (11.0-16.0); White Blood Count 10.3 X10*3/uL (4.8-10.8)
[2023-03-27 12:15] LABS: Appearance Urine Clear; Color Urine Yellow; Glucose Urine UA Negative (Negative); Leukocyte Esterase Urine Small (1+) (Negative); Nitrite Urine Negative (Negative); PH 5.5 (5.0-9.0); Specific Gravity - Urine 1.025 (1.005-1.025); UMIC TRIGGER UACC YES; Urine Blood Negative (Negative); Urine Ketones Negative (Negative); Urine Protein Negative (Neg-Trace)
[2023-03-27 12:24] LABS: Bacteria Urine None Seen (None Seen); Hyaline Casts Urine 0-2 /LPF (0-2); UACC Culture Trigger YES
[2023-03-27 13:16] LABS: Phenytoin Dilantin 11.5 ug/mL (10.0-20.0)
[2023-03-27 13:30] LABS: Alanine Aminotransferase 25 U/L (0-31); Alkaline Phosphatase 171 U/L (39-117); Anion Gap 16 (12-20); Aspartate Amino Transferase 29 U/L (5-31); Bilirubin Total 0.4 mg/dL (0.0-1.0); Blood Urea Nitrogen 15 mg/dL (9-16); Calcium 9.8 mg/dL (8.4-10.2); Carbon Dioxide 24 mmol/L (22-29); Chloride 106 mmol/L (96-108); Cholesterol 163 mg/dL (<200); Estimated Glomerular Filt Rate > 60; Glucose Random 94 mg/dL (60-115); HDL Cholesterol 57 mg/dL (>40); LDL Cholesterol Calculated 93 mg/dL (<100); Potassium 4.2 mmol/L (3.3-5.1); Sodium 142 mmol/L (135-145); Total Protein 7.8 g/dL (6.5-8.0); Triglycerides 69 mg/dL (<150); Uric Acid 5.7 mg/dL (2.4-5.7)
[2023-03-27 13:35] LABS: Free T4 (Free Thyroxine) 0.97 ng/dL (0.71-1.85); Thyroid Stimulating Hormone 1.13 uIU/mL (0.32-4.0)
[2023-03-27 13:48] LABS: Folate 14.2 ng/mL (> or = 4.0); Vitamin B12 688 pg/mL (200-900)
== END 2023-03-27 10:53 | disposition home or self-care (01) ==
LOC: HO.LAB 10:52
PROVIDERS: PCP Internal Medicine; Visit Provider Internal Medicine
DX: N95.0 Postmenopausal bleeding (principal); R56.9 Unspecified convulsions; T42.0X1A Poisoning by hydantoin derivatives, accidental (unintentional), initial encounter; R32 Unspecified urinary incontinence; R39.9 Unspecified symptoms and signs involving the genitourinary system; R30.0 Dysuria; I25.10 Atherosclerotic heart disease of native coronary artery without angina pectoris; E78.00 Pure hypercholesterolemia, unspecified
CPT/HCPCS: 36415; 58100; 80053; 80061; 80185; 81001; 81003; 82607; 82746; 84439; 84443; 84550; 85025; 87086; 88305; 99212

== ENCOUNTER 2023-04-06 11:37 | Outpatient (REF) | payer MEDICARE, MEDICAID, SELFPAY ==
[2023-04-06 14:09] LABS: Appearance Urine Clear; Color Urine Dark Yellow; Glucose Urine UA Negative (Negative); Leukocyte Esterase Urine Trace (Negative); Nitrite Urine Negative (Negative); PH 5.5 (5.0-9.0); Specific Gravity - Urine 1.025 (1.005-1.025); UMIC TRIGGER UA YES; Urine Blood Negative (Negative); Urine Ketones Negative (Negative); Urine Protein Negative (Neg-Trace)
[2023-04-06 14:12] LABS: Bacteria Urine None Seen (None Seen); Hyaline Casts Urine 0-2 /LPF (0-2); WBC Urine 0-5 /HPF (0-5)
== END 2023-04-06 11:38 | disposition home or self-care (01) ==
LOC: HO.LAB 11:37
PROVIDERS: PCP Internal Medicine; Visit Provider Internal Medicine
DX: I25.10 Atherosclerotic heart disease of native coronary artery without angina pectoris (principal); M10.9 Gout, unspecified
CPT/HCPCS: 36415; 81001; 84550

== ENCOUNTER → 2023-04-28 11:15 | Outpatient (BNV) | payer MEDICARE, MEDICAID, SELFPAY | PROVIDERS: PCP Internal Medicine; Visit Provider Radiology Diagnostic Radiology | DX: Z12.31 Encounter for screening mammogram for malignant neoplasm of breast (principal) | CPT/HCPCS: 77063; 77067 ==

== ENCOUNTER 2023-04-28 11:32 | Outpatient (REF) | payer MEDICARE, MEDICAID, SELFPAY ==
--- NOTE | ~2023-04-28 | MM_ITS ---
EXAMINATION: MM SCREENING DIGITAL BREAST TOMOSYNTHESIS, BILATERAL CLINICAL INFORMATION: Screening. Asymptomatic. COMPARISON: Mammography: This study is compared with prior exams dating back to TECHNIQUE: Digital breast tomosynthesis is performed in both the craniocaudal and mediolateral oblique views along with computer-aided detection (CAD). Synthesized 2D images are generated from the tomosynthesis. FINDINGS: There are scattered areas of fibroglandular density (ACR BI-RADS breast composition Category b). There are no significant masses, abnormal calcifications, or other abnormalities. MM/MM tomosynthesis screening BI IMPRESSION: No mammographic evidence of malignancy. ASSESSMENT: BI-RADS BI-RADS 1 - Negative RECOMMENDATION: Routine annual mammography screening. 1 year F/U This examination should not preclude the clinical evaluation of a suspicious palpable abnormality. This patient's information was entered into a reminder system with a target due date for their next mammogram.
== END 2023-04-28 11:33 | disposition home or self-care (01) ==
LOC: HO.MAMMO 11:32
PROVIDERS: PCP Internal Medicine; Visit Provider Internal Medicine
DX: Z12.31 Encounter for screening mammogram for malignant neoplasm of breast (principal)
CPT/HCPCS: 77063; 77067

== ENCOUNTER 2023-05-22 11:32 | Outpatient (AMB) | payer MEDICARE, MEDICAID, SELFPAY ==
--- NOTE | 2023-05-22 11:35 | MHC.OFFVIS ---
Intake Vital Signs 05/22/23 11:36 Height 5 ft 7 in Weight 305 lb BMI 47.8 BP 130/70 Intake Visit Reasons: Annual/EMB Results/DO NOT RS Intake Note: no concerns Cigarette Carton Sealer Required: Yes Cigarette Carton Sealer Language: Macedonian Information Interpreted: non-clinical & clinical Vice President Consulting Services: Vice President Consulting Services Present (Gracie LEWIS) Accompanied by: Self / Same As Patient Allergies adhesive tape [ADHESIVE TAPE] Allergy (Intermediate, Verified 05/22/23 11:45) RASH atorvastatin Allergy (Unknown, Verified 05/22/23 11:45) Rash Post menopausal: Yes HPI HPI Comments History of Present Illness Details Presenting for annual exam. No complaints. In addition the patient is presenting follow-up after endometrial biopsy for episode of postmenopausal bleeding, no additional you episodes of vaginal bleeding Last Pap/HPV was negative in 04/21 Last Mammogram was BI-RADS 1 in 04/24 Last Colonoscopy was 2 years ago, the recommendation was to repeat in 3 years from previous colonoscopy, in 2023 Last DEXA scan was many years ago PFSH Medical History History of back pain Depression Cholelithiasis Peripheral vascular disease Peripheral neuropathy Coronary artery disease Carpal tunnel syndrome Hypercholesterolemia Obesity GERD (gastroesophageal reflux disease) Pulmonary nodule, left Hypertension Seizures Obstructive sleep apnea Vitamin D deficiency Hx of essential hypertension Surgical History Hx of tubal ligation Hx of colonoscopy History of tonsillectomy Hx of cholecystectomy History of carpal tunnel release H/O foot surgery History of Stented coronary artery Family History Father Myocardial infarction Mother Medical history unknown Paternal Aunt Breast cancer Maternal Aunt Ovarian cancer Social History Household Members Other:: son Housing: Apartment Are you a primary career development coordinator/teacher to a significant other at home: No Do you presently have visiting nurse or other home services: No Alcohol intake: never Patient Tobacco Use Status: Never used Tobacco e-Cigarette/Vaping Use: Never Used Second Hand Smoke Exposure: No Current occupational status: disabled Sexually active: No Sexual orientation: Straight/Heterosexual Gender identity: Female Cognitive needs: No Hearing needs: No Vision needs: No Female Reproductive History Menstrual control method: permanent sterilization Total pregnancies: 3 Full term: 3 Number of Living Children: 3 Date of last pap smear: 04/22/20 Date of Mammogram: 04/28/23 Review of Systems Const All systems reviewed & are unremarkable except as noted in HPI and below Card Reports as per HPI Resp Reports as per HPI GI Reports as per HPI and Reports no additional complaints Reports as per HPI Physical Exam Vital Signs: Last Vital Signs BP 130/70 05/22/23 11:36 BMI result Body Mass Index 47.8 Const General: cooperative, healthy appearing and comfortable Chest Chest palpation & inspection: normal inspection of the chest and normal palpation of entire chest wall Breast/axilla inspection: normal inspection of the breasts and normal inspection of the axillae Breast/axilla palpation: normal palpation of the breasts, normal palpation of the axillae and no axillary lymphadenopathy Resp Effort & Inspection: normal respiratory effort Auscultation: clear to auscultation bilaterally Percussion: percussion normal Cardio Palpation: normal PMI Rate: regular rate Rhythm: regular rhythm Heart sounds: no murmurs and no rubs Peripheral pulses: Peripheral pulses 2+ throughout GI Inspection: Yes normal to inspection Palpation (GI): Soft to palpation, nontender, no guarding, not rigid and No hepatosplenomegaly present Percussion: Yes normal to percussion Auscultation: normal bowel sounds Rectal Exam - Female: deferred General: Yes bladder normal to palpation External Female Exam: No lesion Speculum Exam - Vagina: normal appearance of the vagina, normal palpation, normal vaginal discharge and not erythematous Speculum Exam - Cervix: normal appearance of the cervix and normal palpation Bimanual exam- vagina & uterus: normal bimanual exam, normal palpation, uterine size normal, bladder normal to palpation, consistency normal and normal palpation Bimanual Exam- Adnexa, other: normal adnexae, no masses and no tenderness Assessment & Plan Assessment & Plan (1) Well woman exam: Code(s): Z01.419 - Encounter for gynecological examination (general) (routine) without abnormal findings Plan: Co testing not indicated since the patient 's age is above 65 with no history of abnormal Pap smears last 25 years. Counseled the patient about the recommended dietary allowance of 1200 mg of Calcium & 800 IU of vitamin D. Instructions given the patient to schedule next screening Mammogram in 04/25. Will order DEXA scan . The patient was instructed to perform monthly self-breast exams and to schedule a 2 week DEXA scan follow-up appointment and an annual exam in a year; All questions answered and the patient verbalized understanding. (2) Postmenopausal bleeding: Code(s): N95.0 - Postmenopausal bleeding Plan: Discussed with the patient the results of the endometrial biopsy showing inactive endometrium. Discussed with the patient the sensitivity, specificity, positive and negative predictive value, of endometrial biopsy in detecting endometrial pathology including but not limited to endometrial hyperplasia, cancer and other pathology; instructed the patient to call in case is vaginal bleeding bleeding recurs, the next step will be to proceed with a diagnostic hysteroscopy/D&C for further endometrial sampling evaluation to rule out endometrial pathology. All questions answered and the patient verbalized understanding and agreed with the plan. Orders: Orders XR DEXA axial skeleton Today Z78.0 - Asymptomatic menopausal state Coding Level of Care Code Est Pt Prev Care >65y(01674) Diagnoses Well woman exam Z01.419 Postmenopausal bleeding N95.0
[2023-05-22 11:36] VITALS: BP 130/70; BMI 47.8
== END 2023-05-22 12:07 | disposition home or self-care (01) ==
LOC: HO.HWS 11:32
PROVIDERS: PCP Internal Medicine; Visit Provider Obstetrics & Gynecology
DX: Z01.419 Encounter for gynecological examination (general) (routine) without abnormal findings (principal); N95.0 Postmenopausal bleeding
CPT/HCPCS: 99213; G0101

== ENCOUNTER → 2023-05-22 11:32 | Outpatient (BNVA) | payer MEDICARE, MEDICAID, SELFPAY | PROVIDERS: PCP Internal Medicine; Visit Provider Obstetrics & Gynecology | DX: Z01.419 Encounter for gynecological examination (general) (routine) without abnormal findings (principal); N95.0 Postmenopausal bleeding | CPT/HCPCS: 99212; G0101 ==

== ENCOUNTER 2023-07-04 10:16 | Outpatient (REF) | payer MEDICARE, MEDICAID, SELFPAY ==
--- NOTE | ~2023-07-04 | MM_ITS ---
EXAMINATION: BONE DENSITOMETRY CLINICAL INDICATION: Menopause. COMPARISON: Baseline BD dated 06/03/2016. TECHNIQUE: Using a [employer] DXA System (software version: 13.1) manufactured by [employer], dual-energy x-ray absorptiometry was performed of the lumbar spine and left hip. The images are of good technical quality. Summary results are attached. FINDINGS: LEFT FEMUR, NECK: Current: BMD 0.987 g/cm2, Z-score 0.4, T-score -0.4, normal. Baseline: BMD 1.059 g/cm2. LEFT FEMUR, TOTAL: Current: BMD 1.090 g/cm2, Z-score 1.1, T-score 0.7, normal, 5.2% decrease from baseline (<5% change is not significant). Baseline: BMD 1.150 g/cm2. AP SPINE L1-L4: Current: BMD 1.291 g/cm2, Z-score 1.4, T-score 0.9, normal, 5.3% increase from baseline (<5% change is not significant). Baseline: BMD 1.226 g/cm2. IDENTIFIED RISK FACTORS: Menopause. HISTORY OF FRACTURE: None listed. MEDICATIONS: Multivitamin. MM/XR DEXA axial skeleton IMPRESSION: 1. DIAGNOSIS: Normal bone density based on the lowest T-score value of -0.4 in the femoral neck applying World Health Organization criteria. 2. 10-YEAR FRACTURE RISK PREDICTION, FRAX: According to the guidelines, FRAX calculation should only be performed on patients in the osteopenia bone density category. Therefore, FRAX was not performed on this patient. 3. Treatment Recommendations: NOF guidelines recommend consideration for treatment in postmenopausal women and men age 50 and older presenting with the following: -A hip or vertebral (clinical or morphometric) fracture. -T-score less than or equal to -2.5 at the femoral neck or spine after appropriate evaluation to exclude secondary causes. -Low bone mass at the hip or spine and a 10-year fracture probability by FRAX of greater than or equal to 3% for hip fracture or greater than or equal to 20% for major osteoporotic fracture based on the [place] adapted WHO algorithm. 4. Other Recommendations: All treatment decisions require clinical judgment and consideration of individual patient factors, including patient preferences, comorbidities, previous drug use, risk factors not captured in the FRAX model (e.g. frailty, falls, vitamin D deficiency, increased bone turnover, interval significant decline in bone density) and possible under or overestimation of fracture risk by FRAX. FUTURE SCAN RECOMMENDATION: People with diagnosed cases of osteoporosis or at high risk for fracture should have regular bone mineral density tests. For patients eligible for Medicare, routine testing is allowed once every 2 years. The testing frequency can be increased to one year for patients who have rapidly progressing disease, those who are receiving or discontinuing medical therapy to restore bone mass, or have additional risk factors.
== END 2023-07-04 10:17 | disposition home or self-care (01) ==
LOC: HO.MAMMO 10:16
PROVIDERS: PCP Internal Medicine; Visit Provider Obstetrics & Gynecology
DX: Z13.820 Encounter for screening for osteoporosis (principal); Z78.0 Asymptomatic menopausal state
CPT/HCPCS: 77080

== ENCOUNTER 2023-07-13 09:45 | Outpatient (AMB) | payer MEDICARE, MEDICAID, SELFPAY ==
[2023-07-13 09:49] VITALS: BP 128/80; PULSE 68; O2SAT 97; BMI 48.3
--- NOTE | 2023-07-13 09:49 | A.OFFPC_ITS ---
Vital Signs 07/13/23 09:49 Height 5 ft 7 in Weight 308 lb 3.046 oz BMI 48.3 BP 128/80 Blood Pressure Location Lt brachial Position Sitting Pulse 68 Pulse Source Pulse Oximeter Pulse Oximetry (%) 97 Oxygen Delivery Method Room Air Intake Visit Reasons: 3 Months F/U-CAD Redevelopment Specialist Required: No Allergies adhesive tape [ADHESIVE TAPE] Allergy (Intermediate, Verified 07/13/23 09:49) RASH atorvastatin Allergy (Unknown, Verified 07/13/23 09:49) Rash Tobacco use date assessed: 07/13/23 Fall risk assessment: 1 Fall in past year Last assessed Fall Risk: 07/13/23 Dental Screening Dental Screen Date: 07/13/23 Did you have a dental visit in the last 12 months?: No Did you have a dental problem in the last 6 months where you did not have access to dental care?: No HPI 3 Months F/U-CAD HPI Details 67-year-old morbidly obese female with h ypercholesterolemia coronary artery disease GERD hypertension obstructive sleep apnea and seizures patient comes in for follow-up. Patient also has recurrent major depression getting counseling and therapy. Patient's colonoscopy is up-to-date mammograms up-to-date. [facility] Medical History History of back pain Depression Cholelithiasis Peripheral vascular disease Peripheral neuropathy Coronary artery disease Carpal tunnel syndrome Hypercholesterolemia Obesity GERD (gastroesophageal reflux disease) Pulmonary nodule, left Hypertension Seizures Obstructive sleep apnea Vitamin D deficiency Hx of essential hypertension Surgical History Hx of tubal ligation Hx of colonoscopy History of tonsillectomy Hx of cholecystectomy History of carpal tunnel release H/O foot surgery History of Stented coronary artery Family History Father Myocardial infarction Mother Medical history unknown Paternal Aunt Breast cancer Maternal Aunt Ovarian cancer Social History Household Members Other:: son Housing: Apartment Are you a primary managed care liaison to a significant other at home: No Do you presently have visiting nurse or other home services: No Alcohol intake: never Patient Tobacco Use Status: Never used Tobacco e-Cigarette/Vaping Use: Never Used Second Hand Smoke Exposure: No Current occupational status: disabled Sexual orientation: Straight/Heterosexual Gender identity: Female Cognitive needs: No Hearing needs: No Vision needs: No Questionnaire PHQ-9 Over the last 2 weeks, how often have you been bothered by any of the following problems? 1. Little interest or pleasure in doing things: not at all 2. Feeling down, depressed, or hopeless: nearly every day 3. Trouble falling or staying asleep, or sleeping too much: several days 4. Feeling tired or having little energy: several days 5. Poor appetite or overeating: several days 6. Feeling bad about yourself - or that you are a failure or have let yourself or your family down: not at all 7. Trouble concentrating on things, such as reading the newspaper or watching television: not at all 8. Moving or speaking so slowly that other people could have noticed. Or the opposite - being so fidgety or restless that you have been moving around a lot more than usual: not at all 9. Thoughts that you would be better off or of hurting yourself in some way: not at all Total score: 6 Depression Screening Interpretation: Negative Depression Screening Done: Yes Source: Developed by Drs. Heraclio Nesbitt, Skylar Latham, Abdifatah Echevarria and colleagues, with an educational nghia from [employer]. Thrive Questionnaire Date Thrive assessed: 07/13/23 I am a: Patient What is your living situation today?: I have a steady place to live Within the past 12 months, did the food you bought not last and you didn't have the money to get more?: Never true Within the past 12 months, did you worry whether your food would run out before you got money to buy more?: Never true Do you have trouble paying for medicines?: No Do you have trouble getting transportation to medical appointments?: No Do you have trouble paying your heating and electricity bill?: No Do you have trouble taking care of your child, family member or friend?: No Do you have trouble with day-to-day activities such as bathing, preparing meals, shopping, managing finances, etc.?: No Are you currently unemployed and looking for a job?: No Are you interested in more education?: No AUDIT C Alcohol Use Questionnaire (AUDIT-C) 1. How often do you have a drink containing alcohol?: Never 3. How often do you have six or more drinks on one occasion?: Never Total Score: 0 JUAN-7 AMB Questionnaire JUAN-7 Date JUAN - 7 assessed: 07/13/23 Feeling nervous, anxious, or on edge: 0 = Not at all Not being able to stop or control worryin = Several days Worrying too much about different things: 0 = Not at all Trouble relaxin = Not at all Being so restless that it is hard to sit still: 0 = Not at all Becoming easily annoyed or irritable: 0 = Not at all Feeling afraid as if something awful might happen: 0 = Not at all Total JUAN-7 score (0-4 normal; 5-9 mild; 10-14 moderate; 15-21 severe): 1 Source: Developed by Drs. Heraclio Nesbitt, Skylar Latham, Abdifatah Echevarria and colleagues, with an educational nghia from [employer]. Physical exam (Primary Care) Vital Signs: Last Vital Signs Pulse 68 07/13/23 09:49 BP 128/80 07/13/23 09:49 Pulse Ox 97 07/13/23 09:49 Oxygen Delivery Method Room Air 07/13/23 09:49 BMI result Body Mass Index 48.3 Tobacco/Smoking Status: Tobacco use Status Tobacco use date assessed 07/13/23 07/13/23 09:56 Patient Tobacco Use Status Never used Tobacco 07/13/23 09:56 e-Cigarette/Vaping Use Never Used 07/13/23 09:56 PHQ-9: PHQ-9 Score PHQ-9: Total score 6 07/13/23 09:56 Depression Screening Interpretation: Negative Thrive Assessment: Date of Thrive Assessment Date Thrive assessed 07/13/23 07/13/23 09:56 Const General: alert; No acute distress Eyes Conjunctivae: conjunctivae normal Resp Auscultation: clear to auscultation bilaterally Cardio Rate: regular rate Rhythm: regular rhythm GI Inspection: Yes normal to inspection Extrem General: Yes normal to inspection and No edema Assessment and Plan Assessment & Plan (1) Coronary artery disease: Comment: STEMI 08/2016 BELINDA to RPDA, Sees Dr Dougherty- [facility] 02/2020 EF 60-65% moderate diastolic dysfunction Code(s): I25.10 - Atherosclerotic heart disease of [place] coronary artery without angina pectoris Qualifiers: Coronary Disease-Associated Artery/Lesion type: [place] artery [place] vs. transplanted heart: [place] heart Associated angina: without angina Qualified Code(s): I25.10 - Atherosclerotic heart disease of [place] coronary artery without angina pectoris Plan: Control the cholesterol, weight, blood pressure, continue with aspirin (2) Obstructive sleep apnea: Comment: August 2019, BiPAP uses every night Code(s): G47.33 - Obstructive sleep apnea (adult) (pediatric) Plan: Continue to use the CPAP more than 4 hours a night and benefits from the (3) Hypertension: Code(s): I10 - Essential (primary) hypertension Qualifiers: Hypertension type: essential hypertension Qualified Code(s): I10 - Essential (primary) hypertension Plan: Continue with blood pressure medication. Decrease salt intake and exercise patient on lisinopril 20 mg once a day (4) GERD (gastroesophageal reflux disease): Code(s): K21.9 - Gastro-esophageal reflux disease without esophagitis Qualifiers: Esophagitis presence: without esophagitis Qualified Code(s): K21.9 - Gastro-esophageal reflux disease without esophagitis Plan: Avoid the foods that causes that usually spicy foods, tomato products, juices, coffee, soda and foods that your sensitive to. After eating do not lie down, allow 3-4 hours before in lie down. And keep the head of bed above 30 degrees to avoid the acid from going up. (5) Obesity: Code(s): E66.9 - Obesity, unspecified Qualifiers: Obesity type: due to excess calories Obesity classification: adult class 3 (BMI >= 40) Serious obesity comorbidity presence: with serious comorbidity Body mass index: BMI 50.0-59.9 Qualified Code(s): E66.01 - Morbid (severe) obesity due to excess calories; Z68.43 - Body mass index [BMI] 50.0- 59.9, adult Plan: Diet and exercise (6) Hypercholesterolemia: Code(s): E78.00 - Pure hypercholesterolemia, unspecified Plan: Avoid fried foods, chicken skin, eggs, butter margarine, pastries and meat. Be it pork or beef they have a lot of cholesterol LDL goal of less than 130 and triglyceride of less than 150 (7) Postmenopausal bleeding: Code(s): N95.0 - Postmenopausal bleeding Plan: Patient continue to follow-up with gynecology (8) Seizures: Comment: Last seizure 2018 Code(s): R56.9 - Unspecified convulsions Plan: Continue with present medication (9) Depression: Comment: counselling Q monday and helps patient (05/2021) Billie Code(s): F32.9 - Major depressive disorder, single episode, unspecified Plan: Continue with counseling and therapy Medications: New tirzepatide (Mounjaro) 5 mg (0.5 mL) subcut QWEEK 2 mL 4RF E66.01 - Morbid (severe) obesity due to excess calories, Z68.43 - Body mass index [BMI] 50.0- 59.9, adult trazodone 50 mg PO BEDTIME PRN 30 tabs 3RF sleep E66.01 - Morbid (severe) obesity due to excess calories, Z68.43 - Body mass index [BMI] 50.0-59.9, adult Discontinued semaglutide for 4 weeks Discontinued Reason: Doctor's Order 2 mg (0.75 mL) subcut QWEEK 30 days 3.75 mL 3RF E66.01 - Morbid (severe) obesity due to excess calories, Z68.43 - Body mass index [BMI] 50.0-59.9, adult Coding Level of Care Code Est Pt Level 4 (21579) Diagnoses Coronary artery disease involving [place] coronary artery of [place] heart without angina pectoris I25.10 Coronary Disease-Associated Artery/Lesion type: [place] artery [place] vs. transplanted heart: [place] heart Associated angina: without angina Obstructive sleep apnea G47.33 Essential hypertension I10 Hypertension type: essential hypertension Gastroesophageal reflux disease without esophagitis K21.9 Esophagitis presence: without esophagitis Class 3 severe obesity due to excess calories with serious comorbidity and body mass index (BMI) of 50.0 to 59.9 in adult E66.01; Z68.43 Obesity type: due to excess calories Obesity classification: adult class 3 (BMI >= 40) Serious obesity comorbidity presence: with serious comorbidity Body mass index: BMI 50.0-59.9 Hypercholesterolemia E78.00 Postmenopausal bleeding N95.0 Seizures R56.9 Depression F32.9
== END 2023-07-13 10:26 | disposition home or self-care (01) ==
PROVIDERS: PCP Internal Medicine; Visit Provider Internal Medicine
DX: I25.10 Atherosclerotic heart disease of native coronary artery without angina pectoris (principal); E66.01 Morbid (severe) obesity due to excess calories; Z68.43 Body mass index [BMI] 50.0-59.9, adult; R56.9 Unspecified convulsions; G47.33 Obstructive sleep apnea (adult) (pediatric); I10 Essential (primary) hypertension; K21.9 Gastro-esophageal reflux disease without esophagitis; E78.00 Pure hypercholesterolemia, unspecified; N95.0 Postmenopausal bleeding; F32.9 Major depressive disorder, single episode, unspecified
CPT/HCPCS: 99214

== ENCOUNTER 2023-09-29 15:32 | Outpatient (AMB) | payer OTHER, SELFPAY ==
--- NOTE | 2023-09-29 15:32 | MHC.PC.OV ---
Intake Visit Reasons: Flu/Cold Symptoms Jewelry Model Maker Required: No Allergies adhesive tape [ADHESIVE TAPE] Allergy (Intermediate, Verified 07/13/23 09:49) RASH atorvastatin Allergy (Unknown, Verified 07/13/23 09:49) Rash Tobacco use date assessed: 09/29/23 Dental Screening Dental Screen Date: 07/13/23 HPI Flu/Cold Symptoms HPI Details 67-year-old morbidly obese female with coronary artery disease obstructive sleep apnea hypertension GERD hypercholesterolemia history of seizures and major depression calling in for an acute problem this time. grandson had the flu for her 4 days congested cough, fevers, , sore throat, no sore throat PFSH Medical History History of back pain Depression Cholelithiasis Peripheral vascular disease Peripheral neuropathy Coronary artery disease Carpal tunnel syndrome Hypercholesterolemia Obesity GERD (gastroesophageal reflux disease) Pulmonary nodule, left Hypertension Seizures Obstructive sleep apnea Vitamin D deficiency Hx of essential hypertension Surgical History Hx of tubal ligation Hx of colonoscopy History of tonsillectomy Hx of cholecystectomy History of carpal tunnel release H/O foot surgery History of Stented coronary artery Family History Father Myocardial infarction Mother Medical history unknown Paternal Aunt Breast cancer Maternal Aunt Ovarian cancer Social History Household Members Other:: son Housing: Apartment Are you a primary child day care center worker to a significant other at home: No Do you presently have visiting nurse or other home services: No Alcohol intake: never Patient Tobacco Use Status: Never used Tobacco e-Cigarette/Vaping Use: Never Used Second Hand Smoke Exposure: No Current occupational status: disabled Sexual orientation: Straight/Heterosexual Gender identity: Female Cognitive needs: No Hearing needs: No Vision needs: No Questionnaire Thrive Questionnaire Date Thrive assessed: 07/13/23 AUDIT C Alcohol Use Questionnaire (AUDIT-C) 1. How often do you have a drink containing alcohol?: Never 3. How often do you have six or more drinks on one occasion?: Never Total Score: 0 JUAN-7 AMB Questionnaire JUAN-7 Date JUAN - 7 assessed: 07/13/23 Source: Developed by Drs. Heraclio Nesbitt, Skylar Latham, Abdifatah Echevarria and colleagues, with an educational nghia from [employer]. Physical exam (Primary Care) Tobacco/Smoking Status: Tobacco use Status Tobacco use date assessed 09/29/23 09/29/23 15:34 Patient Tobacco Use Status Never used Tobacco 09/29/23 15:34 e-Cigarette/Vaping Use Never Used 09/29/23 15:34 Thrive Assessment: Date of Thrive Assessment Date Thrive assessed 07/13/23 09/29/23 15:34 Telehealth Telehealth Location of provider rendering services: practice address Location of patient: address on file Patient Identification confirmed using: Name, : Yes Telehealth method: video (iphone ) Patient verbally consented to treatment: Yes Patient verbally consented to billing insurance company: Yes Patient informed of any privacy concerns related to visit: Yes Minutes spent on Phone/Video with Pt.: 15 Assessment and Plan Assessment & Plan (1) Exposure to influenza: Code(s): Z20.828 - Contact with and (suspected) exposure to other viral communicable diseases Plan: Patient is presumed having influenza and will send in a script for Tamiflu. For the sore throat can take Cepacol lozenges, discussed about Delsym to help with dry cough so she can rest and advised to increase oral fluids. Patient also can take Tylenol for chills and fever. (2) Upper respiratory infection: Code(s): J06.9 - Acute upper respiratory infection, unspecified Medications: New oseltamivir (Tamiflu) 75 mg PO BID 5 days 10 caps 0RF J06.9 - Acute upper respiratory infection, unspecified Coding Level of Care Code Tele Est Pt Level 3 (51491) Diagnoses Exposure to influenza Z20.828 Upper respiratory infection J06.9
== END 2023-09-29 17:47 | disposition home or self-care (01) ==
LOC: HO.HMGH 15:32
PROVIDERS: PCP Internal Medicine; Visit Provider Internal Medicine
DX: Z20.828 Contact with and (suspected) exposure to other viral communicable diseases (principal); J06.9 Acute upper respiratory infection, unspecified
CPT/HCPCS: 99213

== ENCOUNTER 2023-10-26 09:33 | Outpatient (AMB) | payer OTHER, MEDICAID, SELFPAY ==
[2023-10-26 09:40] VITALS: BP 130/62; PULSE 72; O2SAT 96; BMI 49.5
--- NOTE | 2023-10-26 09:40 | MHC.PC.OV ---
Vital Signs 10/26/23 09:40 Height 5 ft 7 in Weight 316 lb BMI 49.5 BP 130/62 Blood Pressure Location Lt brachial Position Sitting Pulse 72 Pulse Source Pulse Oximeter Pulse Oximetry (%) 96 Oxygen Delivery Method Room Air Intake Visit Reasons: obesity Front Desk Manager Required: No Allergies adhesive tape [ADHESIVE TAPE] Allergy (Intermediate, Verified 07/13/23 09:49) RASH atorvastatin Allergy (Unknown, Verified 07/13/23 09:49) Rash Tobacco use date assessed: 10/26/23 Fall risk assessment: No Falls in past year Last assessed Fall Risk: 10/26/23 Dental Screening Dental Screen Date: 07/13/23 HPI obesity HPI Details 67-year-old morbidly obese female with obstructive sleep apnea hypertension GERD hypercholesterolemia coronary artery disease history of seizures depression coming in for follow-up. Last seen in September 2023 for exposure to flu. Patient's colonoscopy is up-to-date 2016 mammogram is up-to-date April 2023 and bone density is up-to-date. [facility] Medical History History of back pain Depression Cholelithiasis Peripheral vascular disease Peripheral neuropathy Coronary artery disease Carpal tunnel syndrome Hypercholesterolemia Obesity GERD (gastroesophageal reflux disease) Pulmonary nodule, left Hypertension Seizures Obstructive sleep apnea Vitamin D deficiency Hx of essential hypertension Surgical History Hx of tubal ligation Hx of colonoscopy History of tonsillectomy Hx of cholecystectomy History of carpal tunnel release H/O foot surgery History of Stented coronary artery Family History Father Myocardial infarction Mother Medical history unknown Paternal Aunt Breast cancer Maternal Aunt Ovarian cancer Social History Household Members Other:: son Housing: Apartment Are you a primary long term care phlebotomist to a significant other at home: No Do you presently have visiting nurse or other home services: No Alcohol intake: never Patient Tobacco Use Status: Never used Tobacco e-Cigarette/Vaping Use: Never Used Second Hand Smoke Exposure: No Current occupational status: disabled Sexual orientation: Straight/Heterosexual Gender identity: Female Cognitive needs: Yes (cane ) Hearing needs: No Vision needs: No Questionnaire Thrive Questionnaire Date Thrive assessed: 07/13/23 AUDIT C Alcohol Use Questionnaire (AUDIT-C) 1. How often do you have a drink containing alcohol?: Never 3. How often do you have six or more drinks on one occasion?: Never Total Score: 0 JUAN-7 AMB Questionnaire JUAN-7 Date JUAN - 7 assessed: 07/13/23 Source: Developed by Drs. Heraclio Nesbitt, Skylar Latham, Abdifatah Echevarria and colleagues, with an educational nghia from [employer]. Physical exam (Primary Care) Vital Signs: Last Vital Signs Pulse 72 10/26/23 09:40 BP 130/62 10/26/23 09:40 Pulse Ox 96 10/26/23 09:40 Oxygen Delivery Method Room Air 10/26/23 09:40 BMI result Body Mass Index 49.5 Tobacco/Smoking Status: Tobacco use Status Tobacco use date assessed 10/26/23 10/26/23 09:43 Patient Tobacco Use Status Never used Tobacco 10/26/23 09:43 e-Cigarette/Vaping Use Never Used 10/26/23 09:43 Thrive Assessment: Date of Thrive Assessment Date Thrive assessed 07/13/23 10/26/23 09:43 Const General: alert; No acute distress Eyes Conjunctivae: conjunctivae normal Resp Auscultation: clear to auscultation bilaterally Cardio Rate: regular rate Rhythm: regular rhythm GI Inspection: Yes normal to inspection Extrem General: Yes normal to inspection and No edema Assessment and Plan Assessment & Plan (1) Morbid obesity: Code(s): E66.01 - Morbid (severe) obesity due to excess calories Plan: Diet and exercise (2) Seizures: Comment: Last seizure 2018 Code(s): R56.9 - Unspecified convulsions Plan: Continue with present medication of Dilantin (3) Coronary artery disease: Comment: STEMI 08/2016 BELINDA to RPDA, Sees Dr Dougherty- [facility] Cardiology 02/2020 EF 60-65% moderate diastolic dysfunction Code(s): I25.10 - Atherosclerotic heart disease of [place] coronary artery without angina pectoris Qualifiers: Coronary Disease-Associated Artery/Lesion type: [place] artery [place] vs. transplanted heart: [place] heart Associated angina: without angina Qualified Code(s): I25.10 - Atherosclerotic heart disease of [place] coronary artery without angina pectoris Plan: Control the cholesterol, weight, blood pressure, presently on aspirin 81 mg once a day (4) GERD (gastroesophageal reflux disease): Code(s): K21.9 - Gastro-esophageal reflux disease without esophagitis Qualifiers: Esophagitis presence: without esophagitis Qualified Code(s): K21.9 - Gastro-esophageal reflux disease without esophagitis Plan: Avoid the foods that causes that usually spicy foods, tomato products, juices, coffee, soda and foods that your sensitive to. After eating do not lie down, allow 3-4 hours before in lie down. And keep the head of bed above 30 degrees to avoid the acid from going up. (5) Hypertension: Code(s): I10 - Essential (primary) hypertension Qualifiers: Hypertension type: essential hypertension Qualified Code(s): I10 - Essential (primary) hypertension Plan: Continue with blood pressure medication. Decrease salt intake and exercise on lisinopril 20 mg once a day (6) Obstructive sleep apnea: Comment: August 2019, BiPAP uses every night Code(s): G47.33 - Obstructive sleep apnea (adult) (pediatric) Plan: Continue to use the CPAP more than 4 hours a night and benefits from this. Orders: Referrals Medical Weight Management Referral E66.01 - Morbid (severe) obesity due to excess calories Medications: Refilled lisinopril 20 mg PO DAILY 90 tabs 2RF E66.01 - Morbid (severe) obesity due to excess calories Coding Level of Care Code Est Pt Level 4 (38872) Diagnoses Morbid obesity E66.01 Seizures R56.9 Coronary artery disease involving [place] coronary artery of [place] heart without angina pectoris I25.10 Coronary Disease-Associated Artery/Lesion type: [place] artery [place] vs. transplanted heart: [place] heart Associated angina: without angina Gastroesophageal reflux disease without esophagitis K21.9 Esophagitis presence: without esophagitis Essential hypertension I10 Hypertension type: essential hypertension Obstructive sleep apnea G47.33
== END 2023-10-26 10:36 | disposition home or self-care (01) ==
PROVIDERS: PCP Internal Medicine; Visit Provider Internal Medicine
DX: E66.01 Morbid (severe) obesity due to excess calories (principal); Z68.42 Body mass index [BMI] 45.0-49.9, adult; R56.9 Unspecified convulsions; I25.10 Atherosclerotic heart disease of native coronary artery without angina pectoris; K21.9 Gastro-esophageal reflux disease without esophagitis; G47.33 Obstructive sleep apnea (adult) (pediatric)
CPT/HCPCS: 99214

== ENCOUNTER 2024-04-15 10:19 | Outpatient (AMB) | payer OTHER, MEDICAID, SELFPAY ==
--- NOTE | 2024-04-15 10:21 | A.OFFPC_ITS ---
Vital Signs 04/15/24 10:22 Height 5 ft 7 in Weight 321 lb 8 oz BMI 50.3 BP 130/80 Blood Pressure Location Lt brachial Position Sitting Pulse 87 Pulse Source Pulse Oximeter Pulse Oximetry (%) 97 Oxygen Delivery Method Room Air Intake Visit Reasons: annual exam Intake Note: Patient is here today for a physical. Pt decline flu shot today. Citrus Peeler Required: No Director Of Retail Analytics: Present (Daughter and grandson) Accompanied by: Daughter Allergies adhesive tape [ADHESIVE TAPE] Allergy (Intermediate, Verified 04/15/24 10:22) RASH atorvastatin Allergy (Unknown, Verified 04/15/24 10:22) Rash Medication List - Last Reconciled 04/15/24 by Ely Diaz MD albuterol sulfate 90 mcg/actuation 2 puffs PO Q4-6H PRN aspirin 81 mg PO DAILY colchicine 0.6 mg PO DAILY [CPAP 9-20 CM H20 heated and humidified As directed] [DEPENDS 4XL As directed] diclofenac sodium 1% (Voltaren Arthritis Pain) 4 grams topical QID fluticasone propionate 50 mcg/actuation 1 spray intranasal DAILY ibuprofen 600 mg PO Q8H lisinopril 20 mg PO DAILY phenytoin sodium extended 200 mg (2 x 100 mg) PO BID 30 days rosuvastatin 20 mg PO DAILY 30 days semaglutide (Ozempic) 0.25 mg (0.368 mL) subcut QWEEK sennosides-docusate sodium 8.6-50 mg (Senna Plus) 1-2 capsules orally bedtime; tramadol 50 mg PO TID PRN 30 days trazodone 50 mg PO BEDTIME PRN Tobacco use date assessed: 04/15/24 Fall risk assessment: 2 + Falls in past year Last assessed Fall Risk: 04/15/24 Dental Screening Dental Screen Date: 07/13/23 HPI annual exam HPI Details 68-year-old morbidly obese female with a history of seizures coronary artery disease GERD hypertension obstructive sleep apnea coming in for physical exam. Last seen in 10/26/2023. Patient's colonoscopy up-to-date 2016, mammogram is due bone density is up-to-date. Review of the notes in October was seen by Cardiology. dizzy and shakes, fall 2 weeks ago , no syncope, PFSH Medical History (Updated 04/15/24 @ 19:03 by Ely Diaz MD) Obesity History of back pain Depression Cholelithiasis Peripheral vascular disease Peripheral neuropathy Coronary artery disease Carpal tunnel syndrome Hypercholesterolemia GERD (gastroesophageal reflux disease) Pulmonary nodule, left Hypertension Seizures Obstructive sleep apnea Vitamin D deficiency Hx of essential hypertension Surgical History Hx of tubal ligation Hx of colonoscopy History of tonsillectomy Hx of cholecystectomy History of carpal tunnel release H/O foot surgery History of Stented coronary artery Family History Father Myocardial infarction Mother Medical history unknown Paternal Aunt Breast cancer Maternal Aunt Ovarian cancer Social History Household Members Other:: son Housing: Apartment Are you a primary insurance healthcare representative to a significant other at home: No Do you presently have visiting nurse or other home services: No Alcohol intake: never Patient Tobacco Use Status: Never used Tobacco e-Cigarette/Vaping Use: Never Used Second Hand Smoke Exposure: No service: No Current occupational status: disabled Sexual orientation: Straight/Heterosexual Gender identity: Female Cognitive needs: Yes (cane, walker) Hearing needs: No Vision needs: No Questionnaire Thrive Questionnaire Date Thrive assessed: 07/13/23 JUAN-7 AMB Questionnaire JUAN-7 Date JUAN - 7 assessed: 07/13/23 Source: Developed by Drs. Heraclio Nesbitt, Skylar Latham, Abdifatah Echevarria and colleagues, with an educational nghia from [employer]. Review of Systems Const Denies poor appetite and Denies weakness Eyes Denies no additional complaints ENT Reports Normal hearing present, Denies dizziness, Denies nasal congestion, Denies tinnitus and Denies sore throat Card Denies chest pain, Denies syncope, Denies rapid heart rate and Denies dyspnea Resp Denies cough and Denies dyspnea GI Denies change in stool character, Reports constipation, Denies diarrhea, Denies nausea and Denies vomiting Denies urinary frequency, Denies difficulty voiding and Denies dysuria Neuro Reports Normal hearing present, Denies confusion, Denies dizziness, Denies syncope and Denies weakness Psych Denies confusion Physical exam (Primary Care) Vital Signs: Last Vital Signs Pulse 87 04/15/24 10:22 BP 130/80 04/15/24 10:22 Pulse Ox 97 04/15/24 10:22 Oxygen Delivery Method Room Air 04/15/24 10:22 BMI result Body Mass Index 50.3 Tobacco/Smoking Status: Tobacco use Status Tobacco use date assessed 04/15/24 04/15/24 10:32 Patient Tobacco Use Status Never used Tobacco 04/15/24 10:32 e-Cigarette/Vaping Use Never Used 04/15/24 10:32 Thrive Assessment: Date of Thrive Assessment Date Thrive assessed 07/13/23 04/15/24 10:32 Const General: No confusion Orientation/consciousness: No confusion HENMT Head: Yes normocephalic Ears: external ears normal and TM's normal bilaterally Face and sinus: Yes normal facial exam Mouth: moist mucous membranes Throat: Yes tonsils normal Eyes Conjunctivae: conjunctivae normal Pupils: Equal, round and reactive pupils present and Pupil accommodation reflex normal Direct Ophthalmoscopy: normal light reflex Neck Neck: No lymphadenopathy Thyroid: Thyroid normal Chest Chest palpation & inspection: normal inspection of the chest Resp Effort & Inspection: normal respiratory effort and no audible wheezes Auscultation: clear to auscultation bilaterally, no crackles, no wheezes and lung sounds not diminished Cardio Rate: regular rate Rhythm: regular rhythm Peripheral pulses: radial pulses present and dorsalis pedis present GI Palpation (GI): no masses Auscultation: normal bowel sounds and normoactive bowel sounds Rectal Exam - Female: deferred Skin General skin exam: no rashes or lesions noted Rashes: no rashes Neuro General: No confusion Cranial nerves: Yes Equal, round and reactive pupils present and Yes Normal hearing present Cognition (Neuro): normal cognition Gait exam (Neuro): Normal gait present Motor exam (neuro): 5/5 motor strength present throughout Deep tendon reflexes (DTR's): Right brachioradialis reflex intensity grade: 2+, Left brachioradialis reflex intensity grade: 2+, Right patellar reflex intensity grade: 2+ and Left patellar reflex intensity grade: 2+ Extrem General: No edema Coding Level of Care Code Est Pt Prev Care >65y(55048) Diagnoses Annual physical exam Z00.00 Essential hypertension I10 Hypertension type: essential hypertension Obstructive sleep apnea G47.33 Gastroesophageal reflux disease without esophagitis K21.9 Esophagitis presence: without esophagitis Hypercholesterolemia E78.00 Coronary artery disease involving [place] coronary artery of [place] heart without angina pectoris I25.10 Associated angina: without angina Coronary Disease-Associated Artery/Lesion type: [place] artery [place] vs. transplanted heart: [place] heart Breast cancer screening by mammogram Z12.31 Seizures R56.9 Persistent depressive disorder F34.1 Depression Type: persistent depressive disorder Morbid obesity E66.01 Left leg swelling M79.89 Plantar wart of both feet B07.0 Assessment & Plan Assessment & Plan (1) Annual physical exam: Code(s): Z00.00 - Encounter for general adult medical examination without abnormal findings Category: Medical Plan: Patient is advised to eat healthy, keep well hydrated, keep active and have adequate sleep. (2) Hypertension: Code(s): I10 - Essential (primary) hypertension Category: Medical Qualifiers: Hypertension type: essential hypertension Qualified Code(s): I10 - Essential (primary) hypertension Plan: Continue with blood pressure medication. Decrease salt intake and exercise on lisinopril 20 mg once a day (3) Obstructive sleep apnea: Comment: August 2019, BiPAP uses every night Code(s): G47.33 - Obstructive sleep apnea (adult) (pediatric) Category: Medical Plan: Continue to use the BiPAP more than 4 hours a night and benefits from this (4) GERD (gastroesophageal reflux disease): Code(s): K21.9 - Gastro-esophageal reflux disease without esophagitis Category: Medical Qualifiers: Esophagitis presence: without esophagitis Qualified Code(s): K21.9 - Gastro-esophageal reflux disease without esophagitis Plan: Avoid the foods that causes that usually spicy foods, tomato products, juices, coffee, soda and foods that your sensitive to. After eating do not lie down, allow 3-4 hours before in lie down. And keep the head of bed above 30 degrees to avoid the acid from going up. (5) Hypercholesterolemia: Code(s): E78.00 - Pure hypercholesterolemia, unspecified Category: Medical Plan: Avoid fried foods, chicken skin, eggs, butter margarine, pastries and meat. Be it pork or beef they have a lot of cholesterol LDL goal of less than 70 and triglyceride of less than 150 on rosuvastatin 20 mg once a day patient needs blood work (6) Coronary artery disease: Comment: STEMI 08/2016 BELINDA to RPDA, Sees Dr Dougherty- [facility] Cardiology 02/2020 EF 60-65% moderate diastolic dysfunction Code(s): I25.10 - Atherosclerotic heart disease of [place] coronary artery without angina pectoris Category: Medical Qualifiers: Associated angina: without angina Coronary Disease-Associated Artery/Lesion type: [place] artery [place] vs. transplanted heart: [place] heart Qualified Code(s): I25.10 - Atherosclerotic heart disease of [place] coronary artery without angina pectoris Plan: Control the cholesterol, weight, blood pressure, continue with aspirin 81 mg once a day (7) Breast cancer screening by mammogram: Code(s): Z12.31 - Encounter for screening mammogram for malignant neoplasm of breast Category: Medical Plan: Patient is reminded about mammogram (8) Seizures: Comment: Last seizure 2018 Code(s): R56.9 - Unspecified convulsions Category: Medical Plan: Stable continue with Dilantin (9) Depression: Comment: counselling Q monday and helps patient (05/2021) Billie Code(s): F32.9 - Major depressive disorder, single episode, unspecified Category: Medical Qualifiers: Depression Type: persistent depressive disorder Qualified Code(s): F34.1 - Dysthymic disorder Plan: Continue with counseling and therapy (10) Morbid obesity: Code(s): E66.01 - Morbid (severe) obesity due to excess calories Category: Medical Plan: Diet and exercise (11) Left leg swelling: Code(s): M79.89 - Other specified soft tissue disorders Category: Medical Plan: Will request for a stat ultrasound to check for DVT. (12) Plantar wart of both feet: Code(s): B07.0 - Plantar wart Category: Medical Plan: Referral to Podiatry done Orders: Orders Complete Blood Count Auto Diff Today I25.10 - Atherosclerotic heart disease of [place] coronary artery without angina pectoris Free T4 (Free Thyroxine) Today I25.10 - Atherosclerotic heart disease of [place] coronary artery without angina pectoris Thyroid Stimulating Hormone Today I25.10 - Atherosclerotic heart disease of [place] coronary artery without angina pectoris Lipid Panel Today E78.00 - Pure hypercholesterolemia, unspecified, I25.10 - Atherosclerotic heart disease of [place] coronary artery without angina pectoris Comprehensive Met. Panel Today I25.10 - Atherosclerotic heart disease of [place] coronary artery without angina pectoris Vitamin B12 and Folate Today I25.10 - Atherosclerotic heart disease of [place] coronary artery without angina pectoris Vitamin D 25-OH Total Today I25.10 - Atherosclerotic heart disease of [place] coronary artery without angina pectoris B Type Natriuretic Peptide Today I25.10 - Atherosclerotic heart disease of [place] coronary artery without angina pectoris Phenytoin Dilantin Today I25.10 - Atherosclerotic heart disease of [place] coronary artery without angina pectoris venous duplex LE LT Today M79.89 - Other specified soft tissue disorders Referrals Medical Weight Management Referral E66.01 - Morbid (severe) obesity due to excess calories Podiatry Referral B07.0 - Plantar wart Medications: Changed From rosuvastatin 20 mg PO DAILY 30 days 90 tabs 2RF E78.00 - Pure hypercholesterolemia, unspecified To rosuvastatin 20 mg PO DAILY 90 tabs 2RF 90 days E78.00 - Pure h ypercholesterolemia, unspecified Refilled aspirin 81 mg PO DAILY 90 tabs 3RF T42.0X1A - Poisoning by hydantoin derivatives, accidental (unintentional), initial encounter rosuvastatin 20 mg PO DAILY 30 days 90 tabs 2RF E78.00 - Pure hypercholesterolemia, unspecified semaglutide (Ozempic) for 4 weeks 0.25 mg (0.368 mL) subcut QWEEK 3 mL 0RF E66.01 - Morbid (severe) obesity due to excess calories, Z68.43 - Body mass index [BMI] 50.0- 59.9, adult Discontinued 2 ibuprofen Discontinued Reason: Doctor's Order 600 mg PO Q8H 30 tabs 0RF G89.18 - Other acute postprocedural pain
[2024-04-15 10:22] VITALS: BP 130/80; PULSE 87; O2SAT 97; BMI 50.3
== END 2024-04-15 11:38 | disposition home or self-care (01) ==
PROVIDERS: PCP Internal Medicine; Visit Provider Internal Medicine
DX: Z00.00 Encounter for general adult medical examination without abnormal findings (principal); R56.9 Unspecified convulsions; E66.813 Obesity, class 3; Z68.43 Body mass index [BMI] 50.0-59.9, adult; I10 Essential (primary) hypertension; G47.33 Obstructive sleep apnea (adult) (pediatric); K21.9 Gastro-esophageal reflux disease without esophagitis; E78.00 Pure hypercholesterolemia, unspecified; I25.10 Atherosclerotic heart disease of native coronary artery without angina pectoris; Z12.31 Encounter for screening mammogram for malignant neoplasm of breast; F34.1 Dysthymic disorder; M79.89 Other specified soft tissue disorders

== ENCOUNTER → 2024-04-15 10:19 | Outpatient (BNVA) | payer OTHER, MEDICAID, SELFPAY | PROVIDERS: PCP Internal Medicine; Visit Provider Internal Medicine | DX: Z00.00 Encounter for general adult medical examination without abnormal findings (principal); I10 Essential (primary) hypertension; G47.33 Obstructive sleep apnea (adult) (pediatric); K21.9 Gastro-esophageal reflux disease without esophagitis; E78.00 Pure hypercholesterolemia, unspecified; I25.10 Atherosclerotic heart disease of native coronary artery without angina pectoris; F34.1 Dysthymic disorder; E66.01 Morbid (severe) obesity due to excess calories; M79.89 Other specified soft tissue disorders; B07.0 Plantar wart | CPT/HCPCS: 99397 ==

== ENCOUNTER 2024-04-16 11:28 | Outpatient (REF) | payer OTHER, MEDICAID, SELFPAY ==
--- NOTE | ~2024-04-16 | US_ITS ---
EXAMINATION: US TRIPLEX LOWER EXTREMITY, LEFT CLINICAL INFORMATION: Left leg pain and swelling COMPARISON: DVT ultrasound March 15, 2019 TECHNIQUE: Color-flow triplex imaging with spectral analysis and compression Doppler were performed on the left lower extremity. FINDINGS: Respiratory variation, normal compression and augmented flow are noted throughout the left lower extremity. The visualized common femoral vein, superficial femoral vein, profunda femoral vein, popliteal vein and midcalf peroneal and posterior tibial venous segments show no evidence of deep venous thrombosis. There is no Roa's cyst. US/US venous duplex LE LT IMPRESSION: No evidence of deep venous thrombosis involving the left lower extremity. Electronically signed by: Kevin Coe MD 04/16/2024 12:17 PM EDT
== END 2024-04-16 11:29 | disposition home or self-care (01) ==
LOC: HO.HMGCX 11:28
PROVIDERS: PCP Internal Medicine; Visit Provider Internal Medicine
DX: R60.0 Localized edema (principal)
CPT/HCPCS: 93971

== ENCOUNTER 2024-08-06 10:51 | Outpatient (AMB) | payer MEDICARE, MEDICAID, SELFPAY ==
--- NOTE | 2024-08-06 10:55 | A.OFFPC_ITS ---
Vital Signs 08/06/24 10:56 Height 5 ft 7 in Weight 328 lb 11.347 oz BMI 51.5 BP 134/76 Blood Pressure Location Lt brachial Position Sitting Pulse 82 Pulse Source Pulse Oximeter Pulse Oximetry (%) 95 Oxygen Delivery Method Room Air Intake Visit Reasons: obesity Allergies adhesive tape [ADHESIVE TAPE] Allergy (Intermediate, Verified 08/06/24 10:56) RASH atorvastatin Allergy (Unknown, Verified 08/06/24 10:56) Rash Tobacco use date assessed: 08/06/24 Fall risk assessment: 2 + Falls in past year Last assessed Fall Risk: 08/06/24 Dental Screening Dental Screen Date: 08/06/24 Did you have a dental visit in the last 12 months?: Yes Did you have a dental problem in the last 6 months where you did not have access to dental care?: No Was dental information given to patient?: Patient has dentist HPI obesity HPI Details The patient is a 68-year-old female presenting for a follow-up regarding her chronic medical conditions. She has a known history of obstructive sleep apnea, for which she uses a CPAP machine over four hours a night with reported benefit. The patient also has essential hypertension, managed with Lisinopril 20 mg daily. She has been advised on lifestyle modifications, specifically dietary changes and remaining upright post-meals, to manage her gastroesophageal reflux disease (GERD). Her hypercholesterolemia is treated with Rosuvastatin 20 mg once daily, and recent laboratory work is needed to monitor this condition. The patient reports using aspirin for her coronary artery disease management. She maintains phenitoin/Dilantin for seizure control but requires regular monitoring through blood work. Furthermore, she seeks assistance with her significant weight issue, as well as her difficulty with using weight management services due to insurance constraints. Despite her desire for medicinal intervention with Ozempic for weight loss, she encounters insurance obstacles and challenges with falling, particularly in winter due to reduced mobility. She also reports burning and cold sensations in her feet, likely attributed to her overall circulatory status. Current preventive screenings include a colon test completed in 2017, and her mammogram is due though her bone density is up to date. [facility] Medical History (Updated 04/15/24 @ 19:03 by Ely Diaz MD) Obesity History of back pain Depression Cholelithiasis Peripheral vascular disease Peripheral neuropathy Coronary artery disease Carpal tunnel syndrome Hypercholesterolemia GERD (gastroesophageal reflux disease) Pulmonary nodule, left Hypertension Seizures Obstructive sleep apnea Vitamin D deficiency Hx of essential hypertension Surgical History Hx of tubal ligation Hx of colonoscopy History of tonsillectomy Hx of cholecystectomy History of carpal tunnel release H/O foot surgery History of Stented coronary artery Family History Father Myocardial infarction Mother Medical history unknown Paternal Aunt Breast cancer Maternal Aunt Ovarian cancer Social History Household Members Other:: son Housing: Apartment Are you a primary director of medicare to a significant other at home: No Do you presently have visiting nurse or other home services: No Alcohol intake: never Patient Tobacco Use Status: Never used Tobacco Tobacco use type: Cigarette e-Cigarette/Vaping Use: Never Used Second Hand Smoke Exposure: No service: No Current occupational status: disabled Sexual orientation: Straight/Heterosexual Gender identity: Female Cognitive needs: Yes (jana walker) Hearing needs: No Vision needs: No Questionnaire PHQ-9 Over the last 2 weeks, how often have you been bothered by any of the following problems? 1. Little interest or pleasure in doing things: not at all 2. Feeling down, depressed, or hopeless: nearly every day 3. Trouble falling or staying asleep, or sleeping too much: several days 4. Feeling tired or having little energy: several days 5. Poor appetite or overeating: several days 6. Feeling bad about yourself - or that you are a failure or have let yourself or your family down: not at all 7. Trouble concentrating on things, such as reading the newspaper or watching television: not at all 8. Moving or speaking so slowly that other people could have noticed. Or the opposite - being so fidgety or restless that you have been moving around a lot more than usual: not at all 9. Thoughts that you would be better off or of hurting yourself in some way: not at all Total score: 6 Depression Screening Interpretation: Negative Depression Screening Done: Yes Source: Developed by Drs. Heraclio Nesbitt, Skylar Latham, Abdifatah Echevarria and colleagues, with an educational nghia from [employer]. Thrive Questionnaire Date Thrive assessed: 08/06/24 I am a: Patient What is your living situation today?: I have a steady place to live Within the past 12 months, did the food you bought not last and you didn't have the money to get more?: Never true Within the past 12 months, did you worry whether your food would run out before you got money to buy more?: Never true Do you have trouble paying for medicines?: No Do you have trouble getting transportation to medical appointments?: No Do you have trouble paying your heating and electricity bill?: No Do you have trouble taking care of your child, family member or friend?: No Do you have trouble with day-to-day activities such as bathing, preparing meals, shopping, managing finances, etc.?: No Are you currently unemployed and looking for a job?: No Are you interested in more education?: No Currently or been in a relationship where the following occur: No concerns reported THRIVE Score: 0 AUDIT C Alcohol Use Questionnaire (AUDIT-C) 1. How often do you have a drink containing alcohol?: Never 3. How often do you have six or more drinks on one occasion?: Never Total Score: 0 JUAN-7 AMB Questionnaire JUAN-7 Date JUAN - 7 assessed: 08/06/24 Feeling nervous, anxious, or on edge: 0 = Not at all Not being able to stop or control worryin = Not at all Worrying too much about different things: 0 = Not at all Trouble relaxin = Not at all Being so restless that it is hard to sit still: 0 = Not at all Becoming easily annoyed or irritable: 0 = Not at all Feeling afraid as if something awful might happen: 0 = Not at all Total JUAN-7 score (0-4 normal; 5-9 mild; 10-14 moderate; 15-21 severe): 0 Source: Developed by Drs. Heraclio Nesbitt, Skylar Latham, Abdifatah Echevarria and colleagues, with an educational nghia from [employer]. Physical exam (Primary Care) Vital Signs: Last Vital Signs Pulse 82 08/06/24 10:56 BP 134/76 08/06/24 10:56 Pulse Ox 95 08/06/24 10:56 Oxygen Delivery Method Room Air 08/06/24 10:56 BMI result Body Mass Index 51.5 Tobacco/Smoking Status: Tobacco use Status Tobacco use date assessed 08/06/24 08/06/24 11:02 Patient Tobacco Use Status Never used Tobacco 08/06/24 11:02 Tobacco use type Cigarette 08/06/24 11:02 e-Cigarette/Vaping Use Never Used 08/06/24 11:02 PHQ-9: PHQ-9 Score PHQ-9: Total score 6 08/06/24 11:25 Depression Screening Interpretation: Negative Thrive Assessment: Date of Thrive Assessment Date Thrive assessed 08/06/24 08/06/24 11:02 Currently or been in a relationship where the following occur: No concerns reported Const General: alert; No acute distress Eyes Conjunctivae: conjunctivae normal Resp Auscultation: clear to auscultation bilaterally Cardio Rate: regular rate Rhythm: regular rhythm GI Inspection: Yes normal to inspection Extrem General: Yes normal to inspection and No edema Coding Level of Care Code Est Pt Level 4 (81822) Complex EM visit Add On G2211 Diagnoses Obstructive sleep apnea G47.33 Essential hypertension I10 Hypertension type: essential hypertension Gastroesophageal reflux disease without esophagitis K21.9 Esophagitis presence: without esophagitis Hypercholesterolemia E78.00 Coronary artery disease involving [place] coronary artery of [place] heart without angina pectoris I25.10 Associated angina: without angina Coronary Disease-Associated Artery/Lesion type: [place] artery [place] vs. transplanted heart: [place] heart Seizures R56.9 Morbid obesity E66.01 Assessment & Plan Assessment & Plan (1) Obstructive sleep apnea: Comment: August 2019, BiPAP uses every night Code(s): G47.33 - Obstructive sleep apnea (adult) (pediatric) Category: Medical (2) Hypertension: Code(s): I10 - Essential (primary) hypertension Category: Medical Qualifiers: Hypertension type: essential hypertension Qualified Code(s): I10 - Essential (primary) hypertension (3) GERD (gastroesophageal reflux disease): Code(s): K21.9 - Gastro-esophageal reflux disease without esophagitis Category: Medical Qualifiers: Esophagitis presence: without esophagitis Qualified Code(s): K21.9 - Gastro-esophageal reflux disease without esophagitis (4) Hypercholesterolemia: Code(s): E78.00 - Pure hypercholesterolemia, unspecified Category: Medical (5) Coronary artery disease: Comment: STEMI 08/2016 BELINDA to RPVALE, Seeomer Dougherty- [facility] 02/2020 EF 60-65% moderate diastolic dysfunction Code(s): I25.10 - Atherosclerotic heart disease of [place] coronary artery without angina pectoris Category: Medical Qualifiers: Associated angina: without angina Coronary Disease-Associated Artery/Lesion type: [place] artery [place] vs. transplanted heart: [place] heart Qualified Code(s): I25.10 - Atherosclerotic heart disease of [place] coronary artery without angina pectoris (6) Seizures: Comment: Last seizure 2019 Code(s): R56.9 - Unspecified convulsions Category: Medical (7) Morbid obesity: Code(s): E66.01 - Morbid (severe) obesity due to excess calories Category: Medical Plan - Continue CPAP therapy nightly, emphasizing the importance to minimize cardiovascular risk. - Maintain current antihypertensive therapy with Lisinopril 20 mg daily; monitor blood pressure at home. - Reinforce dietary modifications for GERD management and avoidance of supine positioning post-prandially. - Continue Rosuvastatin 20 mg daily for hypercholesterolemia and arrange bloodwork for lipid profile assessment. - Continue aspirin therapy in conjunction with safety scientist recommendations for coronary artery disease. - Maintain seizure control with phenitoin/Dilantin, with plans to complete necessary bloodwork for therapeutic levels. - Address morbid obesity through pharmacotherapy; resubmit referral for weight management program and explore alternative medications like Zepal, as well as reinforcing lifestyle interventions focusing on increased mobility. - Monitor foot symptoms and consider circulation improvement techniques; en courage thermal protection to alleviate the burning and cold sensations. - Instruction to obtain urine analysis due to reported change in urine color and odor. - Discuss preventative health maintenance, including the need for an updated mammogram and consideration of vaccinations like the flu and shingles shot for comprehensive care. Orders: Orders Uric Acid Today E66.01 - Morbid (severe) obesity due to excess calories Referrals Medical Weight Management Referral E66.01 - Morbid (severe) obesity due to excess calories Medications: New tirzepatide (weight loss) (Zepbound) for 4 weeks 2.5 mg (0.5 mL) subcut QWEEK 2 mL 3RF E66.01 - Morbid (severe) obesity due to excess calories [rollator XL] As directed 1 ea 0RF E66.01 - Morbid (severe) obesity due to excess calories Discontinued semaglutide (Ozempic) for 4 weeks Discontinued Reason: Insurance Denied 0.25 mg (0.368 mL) subcut QWEEK 3 mL 0 E66.01 - Morbid (severe) obesity due to excess calories, Z68.43 - Body mass index [BMI] 50.0-59.9, adult
[2024-08-06 10:56] VITALS: BP 134/76; PULSE 82; O2SAT 95; BMI 51.5
--- OUTSIDE RECORDS SUMMARY | 2024-08-06 11:45 | XMS_ITS | Clinical Summary ---
Author Organization Formerly [facility] Address [address] [place] [address] Care Team Providers Care Silo Painter Name Role Phone Ely Diaz MD Primary Care Provider Allergies No known active allergies Medications Medication Sig Dispensed Refills Start Date End Date Status Aspirin Low Dose 81 MG EC tablet Take 81 mg by mouth daily. 02/14/2022 Active ciprofloxacin (CIPRO) 250 mg tablet Take 250 mg by mouth 2 (two) times a day. 02/27/2022 Active docusate sodium (COLACE) 100 MG capsule TAKE 1 CAPSULE BY MOUTH ORALLY DAILY FOR 90 DAYS 02/11/2022 Active fluticasone (FloNASE) 50 mcg/spray nasal spray 03/23/2022 Active lisinopril (PRINIVIL,ZeSTRIL) 20 MG tablet Take 20 mg by mouth daily. 01/11/2022 Active rosuvastatin (CRESTOR) 20 MG tablet Take 20 mg by mouth daily. 12/27/2021 Active traMADol (ULTRAM) 50 MG tablet Take 50 mg by mouth. 09/16/2021 Active amoxicillin-clavulanat e (AUGMENTIN) 875-125 MG per tablet Take 1 tablet by mouth 2 (two) times a day. 03/24/2022 Active Social History Tobacco Use Types Packs/Day Years Used Date Smoking Tobacco: Never Smokeless Tobacco: Never Alcohol Use Standard Drinks/Week Comments Not Currently 0 (1 standard drink = 0.6 oz pur e alcohol) Sex and Gender Information Value Date Recorded Sex Assigned at Not on file Gender Identity Not on file Sexual Orientation Not on file Last Filed Vital Signs Vital Sign Reading Time Taken Comments Blood Pressure 136/63 03/26/2022 10:56 AM EDT Pulse 63 03/26/2022 10:56 AM EDT Temperature 36.2 ??C (97.2 ??F) 03/26/2022 10:56 AM E DT Respiratory Rate 18 04/14/2019 3:54 PM EDT Oxygen Saturation 96% 03/26/2022 10:56 AM EDT Inhaled Oxygen Concentration - - Weight - - Height - - Body Mass Index - - Plan of Treatment Health Maintenance Due Date Last Done Comments Hepatitis C Virus Screening 1956 DTaP/Tdap/Td Vaccines (1 - Tdap) 11/01/1975 Mammogram 1996 Colonoscopy 2001 Pneumococcal Vaccines 50+ (1 of 1 - PCV) 2006 Zoster (Shingles) Vaccine (1 of 2) 2006 DXA Bone Density (Females,Ag es 65 and older) 2021 Influenza Vaccine 02/01/2024 09/11/2016 COVID-19 Vaccine ( - 2023-2 5 season) 2024 RSV Vaccine 60 years and old er and Patients (1 - 1-dose 75+ series) 11/01/2031 Hepatitis B Vaccines Aged Out No long er eligible based on patient's age to complete this topic Care Teams Silo Painter Relationship Specialty Start Date End Date Joe, Ely Calderon MD [address] [place] [address] Dr Alvarado [address] [place] [id number] PCP - General Internal Medicine 04/14/19
--- OUTSIDE RECORDS SUMMARY | 2024-08-06 11:45 | XMS_ITS | Continuity of Care Document ---
Author Organization [employer] [facility] Address [address] [address] Phone Care Team Providers Care Instrumentation And Controls Designer Name Role Phone Shayla Barrera MD Unavailable [...] gave 6 pills. No refills - Active Procedures Procedure Date OFFICE/OUTPATIENT VISIT, EST THERAPEUTIC ACTIVITIES OFFICE/OUTPATIENT VISIT, EST THERAPEUTIC ACTIVITIES THERAPEUTIC EXERCISES OT EVALUATION PT EVALUATION THERAPEUTIC ACTIVITIES Advance Directives Directive Yes / No Effective Date File Name No Information Encounters Encounter Description Practice Location Reason(s) For Visit Diagnoses Date Provider Providers Copied on Encounter Formerly [facility], 1928–1983, 1 [facility], [place], [place], [id number], [place] tel:[phone] [place] No Information [address] Bruce Mcguire. [address], [place], [place], [id number]. tel:[phone] OFFICE/OUTPA TIENT VISIT, EST Formerly [facility], [facility]–1983, 1 [facility], [place], [place], [id number], [place] tel:[phone] [place] Back pain f/u (chief complaint) LumbagoEpilep sy, unspecified, without mention of intractable epilepsy 4 Bruce Mcguire. [address], [place], [place], [id number]. tel:[phone] Formerly [facility], [facility]–1983, 1 [facility], [place], [place], [id number], [place] tel:[phone] [place] LBP f/u (chief complaint) Lumbago 4 No Information Formerly [facility], 1928–1983, 1 [facility], [place], [place], [id number], [place] tel:[phone] [place] No Information 4 No Information Formerly [facility], [facility]–1983, 1 [facility], [place], [place], [id number], [place] tel:[phone] [place] Lumbago 4 Bruce Mcguire. [address], [place], [place], [id number]. tel:[phone] OFFICE/OUTPA TIENT VISIT, EST Formerly [facility], [facility], [address] [facility], [place], [place], [id number], [place] tel:[phone] [place] back pain (chief complaint)m edication compliance (chief complaint) LumbagoMemory lossOther and unspecified hyperlipidemi aEpilepsy, unspecified, without mention of intractable epilepsy 4 Bruce Mcguire. [address] [place], [place], [id number]. tel:[phone] [facility]ly [facility], [facility], [address] [facility] [place], [place], [id number], [place] tel:[phone] [place] No Information 4 Bruce Mcguire. [address] [place], [place], [id number]. tel:[phone] [facility]ly [facility], [facility], [address] [facility] [place], [place], [id number], [place] tel:[phone] [place] Routine Medical Exam 4 Bruce Mcguire. [address] [place], [place], [id number]. tel:[phone] [facility]ly [facility], [facility], [facility] [place], [place], [id number], [place] tel:[phone] [place] No Information 4 Despres Janay. [address] [place], [address]. tel:[phone] Formerly [facility], [facility], [address] [facility], [place], [place], [id number], [place] tel:[phone] [place] No Information 4 No Information Formerly [facility], [facility], [address] [facility], [place], [place], [id number], [place] tel:[phone] [place] No Information 4 Bruce Mcguire. [address] [place], [place], [id number]. tel:[phone] [facility]ly [facility], [facility], [facility], [place], [place], [id number], [place] tel:[phone] [place] post enrollment evaluation (chief complaint)c hronic conditions (chief complaint) Urinary incontinence, unspecifiedEp ilepsy, unspecified, without mention of intractable epilepsyOrgan ic insomnia, unspecifiedUn specified essential hypertensionO ther and unspecified hyperlipidemi aUnspecified sleep apneaChronic airway obstruction, not elsewhere classifiedMor bid obesityMemory lossSpinal stenosis of lumbar region without neurogenic claudicationL umbagoUnspeci fied chronic liver disease without mention of alcoholSolita ry pulmonary noduleUnspeci fied idiopathic peripheral neuropathyAlk rosey phosphatase elevatedAbnor mal exam of musculoskelet al system 4 Bruce Mcguire. [address], [place], [place], [id number]. tel:[phone] Formerly [facility], [facility], [address] [address], [place], [place], [id number], tel:[phone] [place] Routine Medical ExamRoutine Medical ExamEpilepsy, unspecified, without mention of intractable epilepsyNonin fectious Gastroenterit isHypertensio n, UnspecifiedRe spiratory Insufficiency Other and unspecified hyperlipidemi aUrinary incontinence, unspecifiedSl eep ApneaCOPDOste oarthrosis, unspecified whether generalized or localized, involving unspecified siteObesity, MorbidInsomni a due to medical condition classified elsewhereMono neuritis of unspecified siteMemory lossAbnormal Cardiac EnzymesOther chronic nonalcoholic liver diseaseSpinal stenosis of lumbar regionSOLITAR Y PULMONRY NODULEDepress ion 4 Bruce Mcguire. [address], [place], [place], [id number]. tel:[phone] Formerly [facility], [facility], [address] [address], [place], [place], [id number], tel:[phone] [place] Intake visit (chief complaint) No Information No [...] Record Payers Payer name Insurance type Covered libertarian ID Authoriza ticlaudio(s) [facility] 16 [id number] 1 Social History Type Description Quantity Date Captured Comments Sex Female Smoking Status No Information Chief Complaint And Reason For Visit No Information Reason For Referral Reason For Referral No Information Plan Of Treatment Date Type [...] Goal Influenza vaccine. Due on due Goal Influenza vaccine. Due [...] Goal Depression screening. Due on due Goal FOBT. Due on due Goal Influenza vaccine. Due on due Referral Ordered: Referrals: Dentistry. [...] pain. Requesting ibuprofen. back pain Additional infor rhona: lumbar, center w ?radiation to post thigh. Relieved w sitting, lying. Worse w walking. medication compliance Reviewed h igh lipids, low dilantin level and pt reports probably due to missed meds. Misses mid day pills frequently and nightime meds sometimes post enrollment evaluation Pt ashlyn arrieta feels [...] recent change in size, redness or warmth chronic conditions Intake visit 58 year old bee valadez. Lives on first floor apartment. Lives with . No falls in last 90 days but does have history of frequent falls with seizure disorder. Forgetful about taking medications and , who is home all the time, has to remind her to take them every day. Pt takes them out of med planner chief. Sometimes forgets what she is saying and [...] Wakes up in pain. Drinks one beer... Functional Status Date Functional Assessmen t No Information Instructions Date Instruction Additional Infor rhona Will [...] Lumbago Assessments Type Assessment Date No Information Patient Care Teams Name Effective Dates (start - stop) Status Members No Information
--- OUTSIDE RECORDS SUMMARY | 2024-08-06 11:45 | XMS_ITS ---
Author Name [facility] Organization Unknown History of Medication Use Medication Directions Dispensed Refills Start Date End Date Stat ciprofloxacin (CIPRO) 250 mg tablet Take 250 mg by mouth 2 (two) times a day. 02/27/2022 active Aspirin Low Dose 81 MG EC tablet Take 81 mg by mouth daily. 02/14/2022 active Problems Problem Status Onset Date Problem Type Date of Resoluti on Source Acute otitis externa of right ear, unspecified type active EncounterDiagnosisAct CCT Acute parotitis active EncounterDiagnosisAct CCT
--- OUTSIDE RECORDS SUMMARY | 2024-08-06 11:45 | XMS_ITS | Clinical Summary ---
Author Organization [facility] ity Address [address] [place] [address] Care Team Providers Care Psychometric Examiner Name Role Phone Ely Rosales MD Primary Care Provider [phone] Allergies No known active allergies Medications Medication Sig Dispensed Refills Start Date End Date Status HYDROcodone-acetaminop hen (VICODIN) 5-300 mg per tablet Take 1 tablet by mouth every 6 hours as needed (pain). 01/25/2013 Active lisinopriL (PRINIVIL,ZESTRIL) 10 mg tablet Take 10 mg by mouth daily. Active phenytoin (DILANTIN) 100 mg ER capsule Take 300 mg by mouth 2 times daily. 200mg at noon Active simvastatin (ZOCOR) 20 mg tablet Take 20 mg by mouth at bedtime. Active Active Problems Problem Noted Date Diagnosed Date Morbid obesity 09/12/2013 Overview (07/29/2024): BMI 48.45 on 01/25/13. Depression 09/18/2012 Overview (07/29/2024): Sees therapist not on meds HTN (hypertension) 09/18/2012 Overview (07/29/2024): Previous pcp dr ROSALES Hyperlipidemia 09/18/2012 Seizures 09/18/2012 Family History Medical History Relation Name Comments Coronary artery disease Brother Diabetes Brother Hyperlipidemia Brother Hypertension Brother Diabetes Father Hypertension Mother Coronary artery disease Sister Diabetes Sister Hyperlipidemia Sister Hypertension Sister Relation Name Status Comments Brother Alive 6, Father Mother Alive Sister Alive Social History Tobacco Use Types Packs/Day Years Used Date Smoking Tobacco: Former Smokeless Tobacco: Never Alcohol Use Standard Drinks/Week Comments No 0 (1 standard drink = 0.6 oz pur e alcohol) Sex and Gender Information Value Date Recorded Sex Assigned at Not on file Gender Identity Not on file Sexual Orientation Not on file Obstetrics History Plan of Treatment Upcoming Encounters Date Type Department Care Team ([facility] st Contact Info) Description 01/22/2025 9:30 AM EDT Office Visit Bariatric Surgery - [place] [address] [facility] [address] [place] [id number] Renee Flowers, RALF [address] [place] [address] Health Maintenance Due Date Last Done Comments Breast Cancer Screening 1955 DTaP,Tdap,and Td Vaccines (1 - Tdap) 11/01/1975 Zoster Vaccines (1 of 2) 2006 Pneumococcal Vaccine: 65+ Ye ars (1 of 1 - PCV) 2021 Cholesterol Screening (Lipid Panel) 06/01/2022 Colorectal Cancer Screening: Colonoscopy 06/01/2022 Depression Screening 06/01/2022 Falls Risk Assessment 06/01/2022 Hepatitis C Screening 06/01/2022 Osteoporosis Screening (Bone Density Screening) 06/01/2022 Social Influencers of Health Screening 06/01/2022 Hypertension/CHF/CAD Annual BMP Blood Test 06/17/2022 COVID-19 Vaccine ( - 2023-2 5 season) 2024 Influenza Vaccine (#1) 2024 RSV Immunization Patients 60 + Years Old (1 - 1-dose 75+ series) 11/01/2031 HIB Vaccines Aged Out No longer eligi ble based on patient's age to complete this topic HPV Vaccines Aged Out No longer eligi ble based on patient's age to complete this topic Hepatitis A Vaccines Aged Out No long er eligible based on patient's age to complete this topic Hepatitis B Vaccines Aged Out No long er eligible based on patient's age to complete this topic IPV Vaccines Aged Out No longer eligi ble based on patient's age to complete this topic MMR Vaccines Aged Out No longer eligi ble based on patient's age to complete this topic Meningococcal ACWY Vaccine Aged Out N o longer eligible based on patient's age to complete this topic RSV Immunization Patients Un susan 20 months Aged Out No longer eligible b ased on patient's age to complete this topic Varicella Vaccines Aged Out No longer eligible based on patient's age to complete this topic Care Teams Psychometric Examiner Relationship Specialty Start Date End Date Ely Rosales MD [address] [place] [address] [address] [facility] [place] [address] PCP - General Internal Medicine 05/31/17
== END 2024-08-06 11:45 | disposition home or self-care (01) ==
PROVIDERS: PCP Internal Medicine; Visit Provider Internal Medicine
DX: G47.33 Obstructive sleep apnea (adult) (pediatric) (principal); R56.9 Unspecified convulsions; E66.01 Morbid (severe) obesity due to excess calories; Z68.43 Body mass index [BMI] 50.0-59.9, adult; I10 Essential (primary) hypertension; K21.9 Gastro-esophageal reflux disease without esophagitis; E78.00 Pure hypercholesterolemia, unspecified; I25.10 Atherosclerotic heart disease of native coronary artery without angina pectoris

== ENCOUNTER → 2024-08-06 10:51 | Outpatient (BNVA) | payer MEDICARE, MEDICAID, SELFPAY | PROVIDERS: PCP Internal Medicine; Visit Provider Internal Medicine | DX: G47.33 Obstructive sleep apnea (adult) (pediatric) (principal); I10 Essential (primary) hypertension; K21.9 Gastro-esophageal reflux disease without esophagitis; E78.00 Pure hypercholesterolemia, unspecified; I25.10 Atherosclerotic heart disease of native coronary artery without angina pectoris; R56.9 Unspecified convulsions; E66.01 Morbid (severe) obesity due to excess calories | CPT/HCPCS: 99212 ==

== ENCOUNTER 2024-09-06 08:06 | Outpatient (AMB) | payer MEDICARE, MEDICAID, SELFPAY ==
--- OUTSIDE RECORDS SUMMARY | 2024-09-06 08:12 | XMS_ITS | Clinical Summary ---
Author Organization [facility] Address [address] [place] [address] Care Team Providers Care Dog Catcher Name Role Phone Ely Rosales MD Primary Care Provider [phone] Allergies No known active allergies Medications HYDROcodone-acet aminophen (VICODIN) 5-300 mg per tablet Take 1 tablet by mouth every 6 hours as needed (pain). 01/25/2013 Active lisinopriL (PRINIVIL,ZESTRI L) 10 mg tablet Take 10 mg by [...] drink = 0.6 oz pur e alcohol) Comments Unknown Sex and Gender Information Value Date Recorded Sex Assigned at Not on file Legal Sex Female 2:09 PM EST Gender Identity Not on file Sexual Orientation Not on file Obstetrics History Plan of Treatment Upcoming Encounters Date Type Department Care Team ([facility] st Contact Info) Description 01/22/2025 9:30 AM EDT Office Visit Bariatric Surgery - [place] [address] [facility] [address] [place] [id number] Renee Flowers PA [address] [facility] [address] [place] [address] Health Maintenance Due Date Last Done Comments Breast Cancer Screening 1955 DTaP,Tdap,and Td Vaccines (1 - Tdap) 11/01/1975 Pneumococcal Vaccine: 50+ Ye ars (1 of 1 - PCV) 2006 Zoster Vaccines (1 of 2) 2006 Cholesterol Screening (Lipid Panel) 06/01/2022 Colorectal Cancer [...] patient's age to complete this topic Meningococcal B Vacine Aged Out No lo nger eligible based on patient's age to complete this topic RSV Immunization Patients Un susan 20 months Aged Out No longer eligible b ased on patient's age to complete this topic Varicella Vaccines Aged Out No longer eligible based on patient's age to complete this topic Care Teams Dog Catcher Relationship Specialty Start Date End Date Ely Rosales MD [address] [place] [address] [address] [facility] [place] [address] PCP - General Internal Medicine 05/31/17
--- OUTSIDE RECORDS SUMMARY | 2024-09-06 08:12 | XMS_ITS | Clinical Summary ---
Author Organization [facility] Address [address] [place] [address] Care Team Providers Care Clinical Sociologist Name Role Phone Shayla Barrera MD Primary Care Provider [phone] Social History Tobacco Use Types Packs/Day Years Used Date Smoking Tobacco: Never Assessed Comments Unknown Sex and Gender Information Value Date Recorded Sex Assigned at Not on file Legal Sex Female 8:09 AM EDT Gender Identity Not on file Sexual Orientation Not on file Plan of Treatment Health Maintenance Due Date Last Done Comments Hepatitis C Screening 1955 DTaP/Tdap/Td (1 - Tdap) 1974 Mammogram/Breast Imaging 1996 Pneumococcal 50+ years (1 of 1 - PCV) 2006 Zoster (Shingrix) (1 of 2) 2006 Bone Density 2021 COVID-19 Vaccine ( - 2023-2 5 season) 2024 Influenza (#1) 2024 RSV (1 - 1-dose 75+ series) 11/01/2031 HPV Vaccine Aged Out No longer eligi ble based on patient's age to complete this topic Hep A Aged Out No longer eligi ble based on patient's age to complete this topic Hep B Aged Out No longer eligi ble based on patient's age to complete this topic Hib Aged Out No longer eligi ble based on patient's age to complete this topic Meningococcal ACWY Aged Out No longer eligible based on patient's age to complete this topic Pap Smear Discontinued Zoster (Zostavax) Discontinued Insurance [employer] [employer] [facility] [employer] Care Teams Clinical Sociologist Relationship Specialty Start Date End Date Shayla Barrera MD [address] [facility] [place] [address] PCP - General Internal Medicine 12/01/13
--- OUTSIDE RECORDS SUMMARY | 2024-09-06 08:12 | XMS_ITS | Clinical Summary ---
Author Organization [facility] Address [address] [place] [address] Care Team Providers Care Physician Surgeon Name Role Phone Ely Diaz MD Primary Care Provider [phone] Allergies No known active allergies Medications Medication [...] age to complete this topic Care Teams Physician Surgeon Relationship Specialty Start Date End Date Joe, Ely Calderon MD [address] [place] [address] Dr Alvarado [address] [place] [address] PCP - General Internal Medicine 04/14/19
--- OUTSIDE RECORDS SUMMARY | 2024-09-06 08:12 | XMS_ITS | Continuity of Care Document ---
Author Organization [facility] Address [address] [address] Phone Care Team Providers Care Rubber Splicer Name Role Phone Shayla Barrera MD Unavailable [...] Location Reason(s) For Visit Diagnoses Date Provider [facility], [address] [address], [place], [place], [id number], [place] tel:[phone] [place] No Information Jun-3 0-201 4 Bruce Mcguire. [address], [place], [place], [id number]. tel:[phone] [facility], [address], [place], [place], [id number], [place] tel:[phone] [place] Back pain f/u (chief complaint) LumbagoEpilepsy, unspecified, without mention of intractable epilepsy 4 Bruce Mcguire. [address], [place], [place], [id number]. tel:[phone] [facility], [address], [place], [place], [id number], [place] tel:[phone] [place] LBP f/u (chief complaint) Lumbago 4 No Information [facility], [address] [facility], [place], [place], [id number], [place] tel:[phone] [place] No Information 4 No Information [facility], [address], [place], [place], [id number], [place] tel:[phone] [place] Lumbago 4 Bruce Mcguire. [address], [place], [place], [id number]. tel:[phone] [facility], [address], [place], [place], [id number], [place] tel:[phone] [place] back pain (chief complaint)m edication compliance (chief complaint) LumbagoMemory lossOther and unspecified hyperlipidemiaEpilepsy , unspecified, without mention of intractable epilepsy 4 Bruce Mcguire. [address], [place], [place], [id number]. tel:[phone] [facility], [address], [place], [place], [id number], [place] tel:[phone] [place] No Information 4 Bruce Mcguire. [address], [place], [place], [id number]. tel:[phone] [facility], [address] [facility] [address] [place] [address], [id number], [place] tel:[phone] [place] Routine Medical Exam Dec-0 4 Bruce Mcguire. [address], [place], [place], [id number]. tel:[phone] [facility], [address] [facility], [place], [place], [id number], [place] tel:[phone] [place] No Information Dec- 4 Despres Janay. [address] [place], [address]. tel:[phone] [facility], [address] [facility] [address] [facility], [place], [place], [id number], [place] tel:[phone] [place] No Information 4 No Information [facility], [address] [facility], [place], [place], [id number], [place] tel:[phone] [place] No Information 4 Bruce Mcguire. [address], [place], [place], [id number]. tel:[phone] [facility], [address] [facility] [address] [facility], [place], [place], [id number], [place] tel:[phone] [place] post enrollment evaluation (chief complaint)c hronic conditions [...] Dec-0 4 Bruce Mcguire. [address], [place], [place], [id number]. tel:[phone] [facility], [address] [facility] [address] [facility], [place], [place], [id number], tel:[phone] [place] Routine Medical ExamRoutine Medical ExamEpilepsy, unspecified, without mention of intractable epilepsyNoninfectious GastroenteritisHyperte nsion, UnspecifiedRespiratory InsufficiencyOther and unspecified hyperlipidemiaUrinary incontinence, unspecifiedSleep ApneaCOPDOsteoarthrosi s, unspecified whether generalized or localized, involving unspecified siteObesity, MorbidInsomnia due to medical condition classified elsewhereMononeuritis of unspecified siteMemory lossAbnormal Cardiac EnzymesOther chronic nonalcoholic liver diseaseSpinal stenosis of lumbar regionSOLITARY PULMONRY NODULEDepression Bruce Mcguire. [facility] [address], [place], [place], [id number]. tel:[phone] [facility], [address] [facility], [place], [place], [id number], tel:[phone] [place] Intake visit (chief complaint) No Information No [...] Record Payers Payer name Insurance type Covered constitution party ID Authorshekhara ticlaudio(s) [facility] 16 [id number] 1 Social History Type Description Quantity Date [...] day. Pt takes them out of med transit planner. Sometimes forgets what she is saying [...]
--- NOTE | 2024-09-06 11:53 | MHC.OFFVISWM ---
VS Expanded 09/06/24 12:34 Height 5 ft 7 in Weight 324 lb BMI 50.7 Body Fat % 47.3 Body Fat Mass 153.2 Fat Free Mass 170.6 Visceral Fat Rating 20 Body Water % 37.4 Body Water Mass 121 Basal Metabolic Rate/Score 2,434 Intake Visit Reasons: [employer] *SEE COMMENTS* Allergies adhesive tape [ADHESIVE TAPE] Allergy (Intermediate, Verified 09/06/24 12:12) RASH atorvastatin Allergy (Unknown, Verified 09/06/24 12:12) Rash Medication List - Last Reconciled 09/06/24 by Tayo Booker MD albuterol sulfate 90 mcg/actuation 2 puffs PO Q4-6H PRN aspirin 81 mg PO DAILY colchicine 0.6 mg PO DAILY [CPAP 9-20 CM H20 heated and humidified As directed] [DEPENDS 4XL As directed] docusate sodium 100 mg PO DAILY fluticasone propionate 50 mcg/actuation 1 spray intranasal DAILY lisinopril 20 mg PO DAILY phenytoin sodium extended 200 mg (2 x 100 mg) PO BID 30 days [rollator XL As directed] rosuvastatin 20 mg PO DAILY 90 days sennosides-docusate sodium 8.6-50 mg (Senna Plus) 1-2 capsules orally bedtime; tramadol 50 mg PO TID PRN 30 days trazodone 50 mg PO BEDTIME PRN HPI HPI [employer] *SEE COMMENTS*: Details: Start time: 11.57am, End time: 12.42pm ?I spent 40 minutes speaking with the patient on the phone plus an additional 5 minutes reviewing and updating records for a total of 45 minutes HPI Comments Details: Previous weight loss efforts: self diets Wakes up: 9am, sleeps: 12am Breakfast: 9am (boiled eggs, toast) Lunch: skips Dinner: 6pm (chicken, pasta) Snacks: 2 snacks between breakfast and dinner (cookie, fruits), once after dinner (cookies, fruits) Exercise: none Fluids: Coffee x1/day with milk and sugar, tea: none, soda: Diet Gingerale, juice: diet tea, ETOH: none PFSH Medical History (Updated 09/06/24 @ 12:20 by Tayo Booker MD) DJD (degenerative joint disease) Insomnia Asthma Sleep apnea treated with continuous positive airway pressure (CPAP) Obesity History of back pain Depression Cholelithiasis Peripheral vascular disease Peripheral neuropathy Coronary artery disease Carpal tunnel syndrome Hypercholesterolemia GERD (gastroesophageal reflux disease) Pulmonary nodule, left Hypertension Seizures Obstructive sleep apnea Vitamin D deficiency Hx of essential hypertension Surgical History (Updated 09/03/24 @ 10:57 by JOSHUA Haque) Hx of tubal ligation Hx of colonoscopy History of tonsillectomy History of carpal tunnel release H/O foot surgery History of Stented coronary artery Family History Father Myocardial infarction Mother Medical history unknown Paternal Aunt Breast cancer Maternal Aunt Ovarian cancer Social History Household Members Other:: son Housing: Apartment Are you a primary medical care administrator to a significant other at home: No Do you presently have visiting nurse or other home services: No Alcohol intake: never Patient Tobacco Use Status: Never used Tobacco Tobacco use type: Cigarette e-Cigarette/Vaping Use: Never Used Second Hand Smoke Exposure: No service: No Current occupational status: disabled Sexual orientation: Straight/Heterosexual Gender identity: Female Cognitive needs: Yes (cane, walker) Hearing needs: No Vision needs: No Telehealth Telehealth Telehealth Platform: Telephone Location of provider rendering services: practice address Location of patient: address on file Patient Identification confirmed using: Name, : Yes Telehealth method: voice only Patient verbally consented to treatment: Yes Patient verbally consented to billing insurance company: Yes Patient informed of any privacy concerns related to visit: Yes Minutes spent on Phone/Video with Pt.: 45 Assessment & Plan Assessment & Plan (1) Morbid obesity: Code(s): E66.01 - Morbid (severe) obesity due to excess calories Category: Medical Plan: 1. We discussed in detail the available therapeutic options: 1) his insurance requires participation in our lifestyle intervention program for 3 months before use of anti-obesity medications is considered. We discussed about the use of our OurStay software srinivasa for the meal and exercise plan. 2) We also discussed about the?? lap sleeve gastrectomy. I emphasized the importance of close follow-up, adherence to instructions and good communication. The surgery does not replace the need to change your lifestlyle which is the cause of the obesity problem. The surgery provides the motivation to try again to change your lifestyle, it reduces the appetite and make the transition to a better lifestyle easier and doubles the amount of weight you would lose compared to doing the lifestyle change without the surgery. You will need to be on a liquid diet with protein shakes for 2 weeks before surgery to maximize weight loss and boost your nutritional status to recover better from surgery and also for the first two weeks after surgery to let the stomach heal before we introduce other foods. After the first 2 weeks we will introduce protein bars and soft foods like scrambled eggs, cottage cheese and yogurt and after the 6th week will introduce meat, fish and cooked vegetables in small amounts. Over time you should be able to eat everything in small amounts. Side effects like nausea, vomiting, heartburn or abdominal pain are not common in the practice unless you are not following in the practice. This operation requires lifetime commitment to following in our practice and communication with me. You will much less weight and experience side effects if you don?t communicate or not following in the practice. Complications are rare and in our practice is about 1/10 of the national average. 2. Start the Zepbound when you get your body composition scale once a week. Use a calorie-counting srinivasa to track your daily calories to create a calorie deficit with a target of consuming 4481-9408 calories per day. We discussed the potential side effects of Wegovy such as nausea, vomiting, abdominal pain, diarrhea and constipation and you will need to contact me if any of these symptoms occur or for any other new symptom you may experience. Phentermine is contraindicated due to the patient's history of significant CAD, PVD and CVA with a history of several stent placements. The patient has also medically treated hypertension with abnormal blood pressure despite medical treatment. 3. Please buy a body composition scale to monitor muscle mass while on the Zepbound 4. Please buy a stationary bike to help maintain your muscle mass Orders: Orders Insulin Today E66.01 - Morbid (severe) obesity due to excess calories, E78.00 - Pure hypercholesterolemia, unspecified, I10 - Essential (primary) hypertension, I25.10 - Atherosclerotic heart disease of [place] coronary artery without angina pectoris Hemoglobin A1c Today E66.01 - Morbid (severe) obesity due to excess calories, E78.00 - Pure hypercholesterolemia, unspecified, I10 - Essential (primary) hypertension, I25.10 - Atherosclerotic heart disease of [place] coronary artery without angina pectoris Complete Blood Count Auto Diff Today E66.01 - Morbid (severe) obesity due to excess calories, E78.00 - Pure hypercholesterolemia, unspecified, I10 - Essential (primary) hypertension, I25.10 - Atherosclerotic heart disease of [place] coronary artery without angina pectoris Lipid Panel Today E66.01 - Morbid (severe) obesity due to excess calories, E78.00 - Pure hypercholesterolemia, unspecified, I10 - Essential (primary) hypertension, I25.10 - Atherosclerotic heart disease of [place] coronary artery without angina pectoris IRON PROFILE Today E66.01 - Morbid (severe) obesity due to excess calories, E78.00 - Pure hypercholesterolemia, unspecified, I10 - Essential (primary) hypertension, I25.10 - Atherosclerotic heart disease of [place] coronary artery without angina pectoris C Reactive Protein Today E66.01 - Morbid (severe) obesity due to excess calories, E78.00 - Pure hypercholesterolemia, unspecified, I10 - Essential (primary) hypertension, I25.10 - Atherosclerotic heart disease of [place] coronary artery without angina pectoris TSH reflex Free T4 Today E66.01 - Morbid (severe) obesity due to excess calories, E78.00 - Pure hypercholesterolemia, unspecified, I10 - Essential (primary) hypertension, I25.10 - Atherosclerotic heart disease of [place] coronary artery without angina pectoris Vitamin D 25-OH Total Today E66.01 - Morbid (severe) obesity due to excess calories, E78.00 - Pure hypercholesterolemia, unspecified, I10 - Essential (primary) hypertension, I25.10 - Atherosclerotic heart disease of [place] coronary artery without angina pectoris Comprehensive Met. Panel Today E66.01 - Morbid (severe) obesity due to excess calories, E78.00 - Pure hypercholesterolemia, unspecified, I10 - Essential (primary) hypertension, I25.10 - Atherosclerotic heart disease of [place] coronary artery without angina pectoris Vitamin B12 and Folate Today E66.01 - Morbid (severe) obesity due to excess calories, E78.00 - Pure hypercholesterolemia, unspecified, I10 - Essential (primary) hypertension, I25.10 - Atherosclerotic heart disease of [place] coronary artery without angina pectoris Zinc Today E66.01 - Morbid (severe) obesity due to excess calories, E78.00 - Pure hypercholesterolemia, unspecified, I10 - Essential (primary) hypertension, I25.10 - Atherosclerotic heart disease of [place] coronary artery without angina pectoris Vitamin B1 Today E66.01 - Morbid (severe) obesity due to excess calories, E78.00 - Pure hypercholesterolemia, unspecified, I10 - Essential (primary) hypertension, I25.10 - Atherosclerotic heart disease of [place] coronary artery without angina pectoris Vitamin A Today E66.01 - Morbid (severe) obesity due to excess calories, E78.00 - Pure hypercholesterolemia, unspecified, I10 - Essential (primary) hypertension, I25.10 - Atherosclerotic heart disease of [place] coronary artery without angina pectoris Ferritin Today E66.01 - Morbid (severe) obesity due to excess calories, E78.00 - Pure hypercholesterolemia, unspecified, I10 - Essential (primary) hypertension, I25.10 - Atherosclerotic heart disease of [place] coronary artery without angina pectoris Medications: New tirzepatide (weight loss) (Zepbound) for 4 weeks 2.5 mg (0.5 mL) subcut QWEEK 2 mL 0RF E66.01 - Morbid (severe) obesity due to excess calories
[2024-09-06 12:34] VITALS: BMI 50.7
== END 2024-09-06 12:44 | disposition home or self-care (01) ==
LOC: HO.HBS 08:06
PROVIDERS: PCP Internal Medicine; Visit Provider Surgery
DX: E66.813 Obesity, class 3 (principal); Z68.43 Body mass index [BMI] 50.0-59.9, adult
CPT/HCPCS: 99204

== ENCOUNTER 2024-09-06 08:06 | Outpatient (REF) | payer MEDICARE, MEDICAID, SELFPAY ==
[2024-09-06 10:05] LABS: MANUAL DIFF FLAG NO
[2024-09-06 10:31] LABS: Basophils Percent Auto 0.3 % (0-2); Eosinophils Absolute Auto 0.4 X10*3/uL (0.0-0.4); Eosinophils Percent Auto 4.2 % (0-4); Hematocrit 44.2 % (37.0-47.0); Hemoglobin 14.6 g/dl (12.0-16.0); Imm Gran Abs Auto 0.03 X10*3/uL (0.00-0.03); Imm Gran Pct Auto 0.3 % (0.0-0.4); Lymphocytes Absolute Auto 2.7 X10*3/uL (1.2-4.9); Mean Corpuscular Hemoglobin 29.6 pg (27.0-33.0); Mean Corpuscular Volume 89.7 fL (80.0-98.0); Mean Platelet Volume 11.5 fL (9.4-12.3); Monocytes Percent Auto 11.5 % (2-11); Neutrophils Absolute Auto 4.6 x10*3/uL (2.0-8.3); Neutrophils Percent Auto 52.7 % (45-73); Platelet Count 211 X10*3/uL (160-400); Red Blood Count 4.93 X10*6/uL (4.20-5.50); White Blood Count 8.7 X10*3/uL (4.8-10.8)
[2024-09-06 11:05] LABS: Appearance Urine Cloudy; Color Urine Dark Yellow; Glucose Urine UA Negative (Negative); Leukocyte Esterase Urine Trace (Negative); Nitrite Urine Positive (Negative); PH 5.5 (5.0-9.0); Specific Gravity - Urine 1.025 (1.005-1.025); UMIC TRIGGER UACC YES; Urine Blood Negative (Negative); Urine Ketones Trace mg/dL (Negative); Urine Protein Negative (Neg-Trace)
[2024-09-06 11:13] LABS: Bacteria Urine 4+ (None Seen); Hyaline Casts Urine 0-2 /LPF (0-2); RBC Urine 0-2 /HPF (0-2); UACC Culture Trigger YES
[2024-09-06 11:17] LABS: Alanine Aminotransferase 35 U/L (0-31); Albumin Level 3.7 g/dL (3.5-5.0); Alkaline Phosphatase 157 U/L (39-117); Anion Gap 12 (12-20); Aspartate Amino Transferase 45 U/L (5-31); Bilirubin Total 0.3 mg/dL (0.0-1.0); Blood Urea Nitrogen 17 mg/dL (9-16); Calcium 9.2 mg/dL (8.4-10.2); Carbon Dioxide 27 mmol/L (22-29); Chloride 106 mmol/L (96-108); Cholesterol 175 mg/dL (<200); Estimated Glomerular Filt Rate > 60; Glucose Random 91 mg/dL (60-115); HDL Cholesterol 53 mg/dL (>40); LDL Cholesterol Calculated 102 mg/dL (<100); Potassium 4.2 mmol/L (3.3-5.1); Sodium 141 mmol/L (135-145); Total Protein 8.1 g/dL (6.5-8.0); Triglycerides 104 mg/dL (<150)
[2024-09-06 11:21] LABS: B Type Natriuretic Peptide 20 pg/mL (<100)
[2024-09-06 11:24] LABS: Free T4 (Free Thyroxine) 0.97 ng/dL (0.71-1.85); Thyroid Stimulating Hormone 2.58 uIU/mL (0.32-4.0); Vitamin D 25-OH Total 32.1 ng/mL (>30)
[2024-09-06 11:33] LABS: Phenytoin Dilantin 24.7 ug/mL (10.0-20.0)
[2024-09-06 11:38] LABS: Uric Acid 6.2 mg/dL (2.4-5.7)
[2024-09-06 11:44] LABS: Vitamin B12 681 pg/mL (200-900)
== END 2024-09-06 08:07 | disposition home or self-care (01) ==
LOC: HO.LAB 08:06
PROVIDERS: PCP Internal Medicine; Visit Provider Surgery
DX: E66.01 Morbid (severe) obesity due to excess calories (principal); E78.00 Pure hypercholesterolemia, unspecified; I25.10 Atherosclerotic heart disease of native coronary artery without angina pectoris
CPT/HCPCS: 36415; 80053; 80061; 80185; 81001; 81003; 82306; 82607; 82746; 83880; 84439; 84443; 84550; 85025; 87086; 87088; 87186

== ENCOUNTER 2024-09-17 11:01 | Outpatient (REF) | payer MEDICARE, MEDICAID, SELFPAY ==
[2024-09-17 11:53] LABS: MANUAL DIFF FLAG NO
[2024-09-17 12:08] LABS: Basophils Percent Auto 0.3 % (0-2); Eosinophils Absolute Auto 0.3 X10*3/uL (0.0-0.4); Eosinophils Percent Auto 3.3 % (0-4); Hematocrit 42.7 % (37.0-47.0); Hemoglobin 14.5 g/dl (12.0-16.0); Imm Gran Abs Auto 0.03 X10*3/uL (0.00-0.03); Imm Gran Pct Auto 0.3 % (0.0-0.4); Lymphocytes Absolute Auto 2.2 X10*3/uL (1.2-4.9); Lymphocytes Percent Auto 26.1 % (20-40); Mean Corpuscular Hemoglobin 29.9 pg (27.0-33.0); Mean Platelet Volume 11.1 fL (9.4-12.3); Monocytes Absolute Auto 0.8 X10*3/uL (0.1-1.2); Neutrophils Absolute Auto 5.2 x10*3/uL (2.0-8.3); Platelet Count 204 X10*3/uL (160-400); Red Blood Count 4.85 X10*6/uL (4.20-5.50); White Blood Count 8.6 X10*3/uL (4.8-10.8)
[2024-09-17 12:17] LABS: Estimated Average Glucose 123 mg/dL; Hemoglobin A1c % 5.9 % (<6.0)
[2024-09-17 12:32] LABS: Phenytoin Dilantin 12.6 ug/mL (10.0-20.0)
[2024-09-17 12:39] LABS: Anion Gap 11 (12-20)
[2024-09-17 12:42] LABS: Alanine Aminotransferase 30 U/L (0-31); Albumin Level 3.6 g/dL (3.5-5.0); Alkaline Phosphatase 164 U/L (39-117); Aspartate Amino Transferase 44 U/L (5-31); Bilirubin Total 0.6 mg/dL (0.0-1.0); Blood Urea Nitrogen 16 mg/dL (9-16); C Reactive Protein 3.89 mg/dL (< or = 0.50); Calcium 9.4 mg/dL (8.4-10.2); Carbon Dioxide 27 mmol/L (22-29); Chloride 106 mmol/L (96-108); Cholesterol 164 mg/dL (<200); Estimated Glomerular Filt Rate > 60; Glucose Random 107 mg/dL (60-115); HDL Cholesterol 51 mg/dL (>40); Iron 125 mcg/dL (30-160); LDL Cholesterol Calculated 97 mg/dL (<100); Percent Iron Saturation 57 % (15-50); Potassium 4.4 mmol/L (3.3-5.1); Sodium 140 mmol/L (135-145); Total Iron Binding Capacity 221 mcg/dL (228-428); Total Protein 7.8 g/dL (6.5-8.0); Triglycerides 81 mg/dL (<150); Unsaturated Iron Binding 96 ug/dL
[2024-09-17 13:08] LABS: Folate 15.2 ng/mL (> or = 4.0); Vitamin B12 885 pg/mL (200-900)
[2024-09-17 13:11] LABS: Ferritin 282 ng/mL (10-250); TSH reflex Free T4 1.59 uIU/mL (0.32-4.0); Vitamin D 25-OH Total 31.4 ng/mL (>30)
[2024-09-17 13:16] LABS: Insulin 23 uU/mL (2-29)
[2024-09-17 13:59] LABS: Appearance Urine Cloudy; Color Urine Dark Yellow; Glucose Urine UA Negative (Negative); Leukocyte Esterase Urine Moderate (2+) (Negative); Nitrite Urine Negative (Negative); PH 5.5 (5.0-9.0); Specific Gravity - Urine >= 1.030 (1.005-1.025); UMIC TRIGGER UACC YES; Urine Blood Negative (Negative); Urine Ketones Trace mg/dL (Negative); Urine Protein Trace mg/dL (Neg-Trace)
[2024-09-17 14:21] LABS: Bacteria Urine 3+ (None Seen); Calcium Oxalate Crystals Urine Present; RBC Urine 0-2 /HPF (0-2); Squamous Epithelial Cell Urine >20 /HPF (0-2); UACC Culture Trigger YES; WBC Urine 21-50 /HPF (0-5)
[2024-09-19 21:59] LABS: Zinc 70 mcg/dL (60-130)
[2024-09-20 19:28] LABS: Vitamin A 44 mcg/dL (38-98)
[2024-09-25 15:44] LABS: Vitamin B1 7 nmol/L (8-30)
== END 2024-09-17 11:02 | disposition home or self-care (01) ==
LOC: HO.LAB 11:01
PROVIDERS: Surgery; PCP Internal Medicine; Visit Provider Internal Medicine
DX: R56.9 Unspecified convulsions (principal); I10 Essential (primary) hypertension; I25.10 Atherosclerotic heart disease of native coronary artery without angina pectoris; E78.00 Pure hypercholesterolemia, unspecified; E66.01 Morbid (severe) obesity due to excess calories; N39.0 Urinary tract infection, site not specified; R30.0 Dysuria; B95.1 Streptococcus, group B, as the cause of diseases classified elsewhere; Z13.1 Encounter for screening for diabetes mellitus
CPT/HCPCS: 36415; 80053; 80061; 80185; 81001; 82306; 82607; 82728; 82746; 83036; 83525; 83540; 84425; 84443; 84590; 84630; 85025; 86140; 87086; 87147

== ENCOUNTER 2024-11-11 10:51 | Outpatient (AMB) | payer MEDICARE, MEDICAID, SELFPAY ==
--- NOTE | 2024-11-11 11:09 | A.OFFPC_ITS ---
Vital Signs 11/11/24 11:15 Height 5 ft 7 in Weight 318 lb 8 oz BMI 49.9 BP 122/62 Blood Pressure Location Lt brachial Position Sitting Pulse 72 Pulse Source Pulse Oximeter Temp 97.1 F Temp Source Temporal Artery Scan Pulse Oximetry (%) 95 Oxygen Delivery Method Room Air Intake Visit Reasons: OBesity Animal Shelter Supervisor Required: No Accompanied by: Daughter Allergies adhesive tape [ADHESIVE TAPE] Allergy (Intermediate, Verified 11/11/24 11:10) RASH atorvastatin Allergy (Unknown, Verified 11/11/24 11:10) Rash Medication List - Last Reconciled 11/11/24 by Ely Diaz MD albuterol sulfate 90 mcg/actuation 2 puffs PO Q4-6H PRN aspirin 81 mg PO DAILY colchicine 0.6 mg PO DAILY [CPAP 9-20 CM H20 heated and humidified As directed] [DEPENDS 4XL As directed] docusate sodium 100 mg PO DAILY fluticasone propionate 50 mcg/actuation 1 spray intranasal DAILY lisinopril 20 mg PO DAILY phenytoin sodium extended 200 mg (2 x 100 mg) PO BID 30 days [rollator XL As directed] rosuvastatin 20 mg PO DAILY 90 days sennosides-docusate sodium 8.6-50 mg (Senna Plus) 1-2 capsules orally bedtime; tirzepatide (weight loss) 5 mg (0.5 mL) subcut QWEEK 1 month tramadol 50 mg PO TID PRN 30 days trazodone 50 mg PO BEDTIME PRN Tobacco use date assessed: 08/06/24 Fall risk assessment: No Falls in past year Last assessed Fall Risk: 11/11/24 Dental Screening Dental Screen Date: 08/06/24 [facility] Medical History (Updated 09/06/24 @ 12:20 by Tayo Booker MD) DJD (degenerative joint disease) Insomnia Asthma Sleep apnea treated with continuous positive airway pressure (CPAP) Obesity History of back pain Depression Cholelithiasis Peripheral vascular disease Peripheral neuropathy Coronary artery disease Carpal tunnel syndrome Hypercholesterolemia GERD (gastroesophageal reflux disease) Pulmonary nodule, left Hypertension Seizures Obstructive sleep apnea Vitamin D deficiency Hx of essential hypertension Surgical History Hx of tubal ligation Hx of colonoscopy History of tonsillectomy History of carpal tunnel release H/O foot surgery History of Stented coronary artery Family History Father Myocardial infarction Mother Medical history unknown Paternal Aunt Breast cancer Maternal Aunt Ovarian cancer Social History Household Members Other:: son Housing: Apartment Are you a primary ostomy care nurse to a significant other at home: No Do you presently have visiting nurse or other home services: No Alcohol intake: never Patient Tobacco Use Status: Never used Tobacco Tobacco use type: Cigarette e-Cigarette/Vaping Use: Never Used Second Hand Smoke Exposure: No service: No Current occupational status: disabled Sexual orientation: Straight/Heterosexual Gender identity: Female Cognitive needs: Yes (christelle bates) Hearing needs: No Vision needs: No Questionnaire PHQ-9 Over the last 2 weeks, how often have you been bothered by any of the following problems? 1. Little interest or pleasure in doing things: not at all 2. Feeling down, depressed, or hopeless: several days 3. Trouble falling or staying asleep, or sleeping too much: several days 4. Feeling tired or having little energy: several days 5. Poor appetite or overeating: several days 6. Feeling bad about yourself - or that you are a failure or have let yourself or your family down: several days 7. Trouble concentrating on things, such as reading the newspaper or watching television: several days 8. Moving or speaking so slowly that other people could have noticed. Or the opposite - being so fidgety or restless that you have been moving around a lot more than usual: several days 9. Thoughts that you would be better off or of hurting yourself in some way: several days Total score: 8 [id number] - PHQ-9 Billing: Yes Source: Developed by Drs. Heraclio Nesbitt, Skylar Latham, Abdifatah Echevarria and colleagues, with an educational nghia from [employer]. Thrive Questionnaire Date Thrive assessed: 11/11/24 I am a: Patient What is your living situation today?: I have a steady place to live Within the past 12 months, did the food you bought not last and you didn't have the money to get more?: Never true Within the past 12 months, did you worry whether your food would run out before you got money to buy more?: Never true Do you have trouble paying for medicines?: No Do you have trouble getting transportation to medical appointments?: No Do you have trouble paying your heating and electricity bill?: No Do you have trouble taking care of your child, family member or friend?: No Do you have trouble with day-to-day activities such as bathing, preparing meals, shopping, managing finances, etc.?: No Are you currently unemployed and looking for a job?: No Are you interested in more education?: No Please select the resources that you would like help with: None Currently or been in a relationship where the following occur: No concerns reported THRIVE Score: 0 AUDIT C Alcohol Use Questionnaire (AUDIT-C) 1. How often do you have a drink containing alcohol?: Never 3. How often do you have six or more drinks on one occasion?: Never Total Score: 0 JUAN-7 AMB Questionnaire JUAN-7 Date JUAN - 7 assessed: 11/11/24 Feeling nervous, anxious, or on edge: 0 = Not at all Not being able to stop or control worryin = Not at all Worrying too much about different things: 1 = Several days Trouble relaxin = Several days Being so restless that it is hard to sit still: 1 = Several days Becoming easily annoyed or irritable: 0 = Not at all Feeling afraid as if something awful might happen: 0 = Not at all Total JUAN-7 score (0-4 normal; 5-9 mild; 10-14 moderate; 15-21 severe): 3 Source: Developed by Drs. Heraclio Nesbitt, Skylar Latham, Abdifatah Echevarria and colleagues, with an educational nghia from [employer]. JUAN-7 Assessment Billing JUAN-7 Assessment Tool: JUAN-7 Assessment 84685 Physical exam (Primary Care) Vital Signs: Last Vital Signs Temp 97.1 F 11/11/24 11:15 Pulse 72 11/11/24 11:15 BP 122/62 11/11/24 11:15 Pulse Ox 95 11/11/24 11:15 Oxygen Delivery Method Room Air 11/11/24 11:15 BMI result Body Mass Index 49.9 Tobacco/Smoking Status: Tobacco use Status Tobacco use date assessed 08/06/24 11/11/24 11:11 Patient Tobacco Use Status Never used Tobacco 11/11/24 11:11 Tobacco use type Cigarette 11/11/24 11:11 e-Cigarette/Vaping Use Never Used 11/11/24 11:11 PHQ-9: PHQ-9 Score PHQ-9: Total score 8 11/11/24 11:46 Thrive Assessment: Date of Thrive Assessment Date Thrive assessed 11/11/24 11/11/24 11:11 Currently or been in a relationship where the following occur: No concerns reported Const General: alert; No acute distress Eyes Conjunctivae: conjunctivae normal Resp Auscultation: clear to auscultation bilaterally Cardio Rate: regular rate Rhythm: regular rhythm GI Inspection: Yes normal to inspection Extrem General: Yes normal to inspection and No edema Results AMB Hemoglobin A1c AMB Hemoglobin A1c 5.3 % Last Edit by AD De La Rosa on 11/11/24 11:22 Results Reviewed Results Reviewed: Laboratory Last Values Hgb A1c (Clinic) 5.3 % (4.0-6.0) 11/11/24 11:05 Coding Level of Care Code Est Pt Level 4 (78658) Complex EM visit Add On G2211 Diagnoses Coronary artery disease involving [place] coronary artery of [place] heart without angina pectoris I25.10 Associated angina: without angina Coronary Disease-Associated Artery/Lesion type: [place] artery [place] vs. transplanted heart: [place] heart Obstructive sleep apnea G47.33 Essential hypertension I10 Hypertension type: essential hypertension Gastroesophageal reflux disease without esophagitis K21.9 Esophagitis presence: without esophagitis Hypercholesterolemia E78.00 Peripheral vascular disease I73.9 Persistent depressive disorder F34.1 Depression Type: persistent depressive disorder Fatty liver K76.0 Morbid obesity E66.01 Additional Codes JUAN-7 Assessment Billing - JUAN-7 Assessment Tool: JUAN-7 Assessment 24073 ([id number]) PHQ-9 - 53398 - PHQ-9 Billing: Yes ([id number]) Assessment & Plan Assessment & Plan (1) Coronary artery disease: Comment: STEMI 08/2016 BELINDA to RPDA, Sees Dr Dougherty- [facility] 02/2020 EF 60-65% moderate diastolic dysfunction Code(s): I25.10 - Atherosclerotic heart disease of [place] coronary artery without angina pectoris Category: Medical Qualifiers: Associated angina: without angina Coronary Disease-Associated Arter y/Lesion type: [place] artery [place] vs. transplanted heart: [place] heart Qualified Code(s): I25.10 - Atherosclerotic heart disease of [place] coronary artery without angina pectoris Plan: Control the cholesterol, weight, blood pressure, on aspirin 81 mg once a day (2) Obstructive sleep apnea: Comment: August 2019, BiPAP uses every night Code(s): G47.33 - Obstructive sleep apnea (adult) (pediatric) Category: Medical Plan: Continue to use the BiPAP every night more than 4 hours a night and benefits from the (3) Hypertension: Code(s): I10 - Essential (primary) hypertension Category: Medical Qualifiers: Hypertension type: essential hypertension Qualified Code(s): I10 - Essential (primary) hypertension Plan: Continue with blood pressure medication. Decrease salt intake and exercise on lisinopril 20 mg once a day (4) GERD (gastroesophageal reflux disease): Code(s): K21.9 - Gastro-esophageal reflux disease without esophagitis Category: Medical Qualifiers: Esophagitis presence: without esophagitis Qualified Code(s): K21.9 - Gastro-esophageal reflux disease without esophagitis Plan: Avoid the foods that causes that usually spicy foods, tomato products, juices, coffee, soda and foods that your sensitive to. After eating do not lie down, allow 3-4 hours before in lie down. And keep the head of bed above 30 degrees to avoid the acid from going up. (5) Hypercholesterolemia: Code(s): E78.00 - Pure hypercholesterolemia, unspecified Category: Medical Plan: Avoid fried foods, chicken skin, eggs, butter margarine, pastries and meat. Be it pork or beef they have a lot of cholesterol LDL goal of less than 70 and triglyceride of less than 150 patient is on rosuvastatin 20 mg once a (6) Peripheral vascular disease: Code(s): I73.9 - Peripheral vascular disease, unspecified Category: Medical Plan: When sitting down elevate the legs, exercise, and support stockings (7) Depression: Comment: counselling Q monday and helps patient (05/2021) Billie Code(s): F32.9 - Major depressive disorder, single episode, unspecified Category: Medical Qualifiers: Depression Type: persistent depressive disorder Qualified Code(s): F34.1 - Dysthymic disorder Plan: Continue with counseling and therapy (8) Fatty liver: Code(s): K76.0 - Fatty (change of) liver, not elsewhere classified Category: Medical Plan: Low-fat diet and exercise (9) Morbid obesity: Code(s): E66.01 - Morbid (severe) obesity due to excess calories Category: Medical Plan: Patient has been prescribed Zepbound Plan History of Present Illness The patient is a 69-year-old female presenting with follow-up for weight management and chronic condition management. Recently, she has experienced a 6- pound weight loss since August as part of her ongoing weight management program. She has a significant medical history, including obstructive sleep apnea managed with CPAP, essential hypertension, hypercholesterolemia, coronary artery disease, seizure disorder, peripheral vascular disease, hepatic steatosis, and asthma. Her screening history records a colonoscopy in 2016, and she is due for a mammogram. Her lab results in August showed normal blood counts and electrolytes, with stable renal function. However, liver function was slightly elevated, iron levels were raised, and vitamin B1 levels were low. Her fasting blood glucose was marginally high at 107 mg/dL, whereas her hemoglobin A1c was normal. Her LDL cholesterol level was 97 mg/dL, above the target goal for her condition. The patient follows a medication regimen of aspirin, lisinopril, and rosuvastatin, with Zepbound prescribed for weight management. She reports inconsistent use of her CPAP due to inconvenience and notes leg swelling. Her lifestyle adjustments include a low-fat diet and increased exercise, although adherence is variable. Health Maintenance - Colonoscopy conducted in 2016. - Mammogram due for reevaluation, last recorded in April 2023. - Bone density test up to date as of July 2023. - Current medications: aspirin 81 mg, lisinopril 20 mg, rosuvastatin 20 mg. - Weight management program ongoing with Zepbound prescription. - Low-fat diet and exercise regimen discussed. Social History - Exercise: Use of a stationary bike every other day, encouraged to increase frequency. - Diet: Low-fat diet; limited sugar intake; emphasis on vegetable consumption. - Compliance: Issues with CPAP usage; tolerates use for less than five nights a week. - Weight management: Transitioning to higher dose of Zepbound for enhanced weight loss. Review of Systems - Cardiovascular: Reports hypertension and leg swelling. - Respiratory: Reports obstructive sleep apnea, history of asthma. - Gastrointestinal: Denies reflux symptoms. - Neurological: History of seizures. - Hematological: Reports elevated iron levels. - Metabolic/Endocrine: Reports hypercholesterolemia, marginally elevated blood sugar. - Musculoskeletal: Reports leg swelling. Physical Exam Results - Labs: Normal blood count and electrolytes, liver function test elevated at 44, elevated iron levels, low vitamin B1, blood sugar at 107 mg/dL, cholesterol LDL at 97 mg/dL. Plan We focused on managing her obstructive sleep apnea, encouraging use of CPAP for more than five nights weekly. Essential hypertension will be managed with lisinopril 20 mg daily. In discussing hypercholesterolemia, the rosuvastatin dosage will be increased to 40 mg daily due to an LDL level of 97 mg/dL, which exceeds the target of less than 70 mg/dL. We will monitor her weight management using Zepbound, with plans to increase the dosage if tolerated and necessary. We discussed maintaining her low-fat diet and exercise routine while managing swelling with leg elevation and continuous movement to improve blood circulation. Follow-up and monitoring of her cholesterol and blood sugar levels are scheduled for three months, allowing for adjustments based on future lab results. Patient was informed and verbally consented to the use of an ambient scribe for clinic note documentation during this visit. Discussion Notes I discussed with the patient the importance of consistent CPAP use, advising her to aim for at least five nights a week to manage obstructive sleep apnea effectively. In managing her cholesterol, I explained the need to increase rosuvastatin to 40 mg due to the current LDL level being above the target range. I highlighted the importance of dietary modifications, specifically reducing cholesterol and sugar intake, and encouraged greater adherence to her exercise routine. For her weight management, I informed her about the potential to incre ase the Zepbound dosage if required and discussed anticipated side effects like nausea. We agreed on a three-month timeline for reassessment of blood sugar and cholesterol levels, emphasizing the need for ongoing consultation to optimize her health outcomes. Patient Instructions - Use CPAP consistently more than five nights a week. - Continue taking lisinopril 20 mg daily. - Increase rosuvastatin to 40 mg daily. - Follow a low-fat diet and increase physical activity. - Raise legs when sitting to reduce swelling. - Avoid high-cholesterol foods and monitor sugar intake. - Notify if experiencing nausea with Zepbound. - Schedule follow-up lab tests in three months. - Contact for appointment if weight is not decreasing as expected. Orders: Orders AMB Hemoglobin A1c Today Z13.1 - Encounter for screening for diabetes mellitus Free T4 (Free Thyroxine) 3 Months E78.00 - Pure hypercholesterolemia, unspecified Lipid Panel 3 Months E78.00 - Pure hypercholesterolemia, unspecified Thyroid Stimulating Hormone 3 Months E78.00 - Pure hypercholesterolemia, unspecified Hemoglobin A1c 3 Months E78.00 - Pure hypercholesterolemia, unspecified MM tomosynthesis screening BI Today Z12.31 - Encounter for screening mammogram for malignant neoplasm of breast Complete Blood Count Auto Diff 3 Months E78.00 - Pure hypercholesterolemia, unspecified Comprehensive Met. Panel 3 Months E78.00 - Pure hypercholesterolemia, unspecified Vitamin B12 and Folate 3 Months E78.00 - Pure hypercholesterolemia, unspecified Medications: Changed From tirzepatide (weight loss) (Zepbound) for 4 weeks 2.5 mg (0.5 mL) subcut QWEEK 2 mL 0RF E66.01 - Morbid (severe) obesity due to excess calories To tirzepatide (weight loss) for 4 weeks 5 mg (0.5 mL) subcut QWEEK 2.5 mL 3RF 1 month E66.01 - Morbid (severe) obesity due to excess calories From rosuvastatin 20 mg PO DAILY 90 days 90 tabs 2RF E78.00 - Pure hypercholesterolemia, unspecified To rosuvastatin 40 mg PO DAILY 90 tabs 2RF 90 days E78.00 - Pure hypercholesterolemia, unspecified Refilled [rollator XL] As directed 1 ea 0RF E66.01 - Morbid (severe) obesity due to excess calories sennosides-docusate sodium 8.6-50 mg (Senna Plus) 1-2 capsules orally bedtime; 60 caps 1RF
[2024-11-11 11:15] VITALS: BP 122/62; PULSE 72; TEMP 36.2; O2SAT 95; BMI 49.9
--- OUTSIDE RECORDS SUMMARY | 2024-11-11 11:36 | XMS_ITS | Clinical Summary ---
Author Organization [facility] Address [address] [place] [address] Care Team Providers Care Community Health Nurse Staff Name Role Phone Ely Rosales MD Primary Care Provider [phone] Allergies No known active allergies Medications HYDROcodone-acet [...] Problem Noted Date Diagnosed Date Morbid obesity ([facility] V24, [facility] V28) 2013 Overview (07/29/2024): BMI 48.45 on 01/25/13. Depression 09/18/2012 Overview (07/29/2024): Sees therapist not on meds HTN (hypertension) 09/18/2012 Overview (07/29/2024): Previous pcp dr ROSALES Hyperlipidemia 09/18/2012 Seizures ([facility] V24, [facility] V28) 09/18/2012 Family History Medical History Relation Name [...] Upcoming Encounters Date Type Department Care Team ([facility] Contact Info) Description 01/22/2025 9:30 AM EDT Office Visit Bariatric Surgery - [place] [address] [facility] [address] [place] [id number] Renee Flowers PA [address] [facility] [address] [place] [address] Health Maintenance Due Date Last Done Comments [...] - 2023-2 5 season) 2024 Influenza Vaccine (Season Ended) 2025 RSV Immunization Adult Patie nts (1 - 1-dose 75+ series) 11/01/2031 HIB [...] age to complete this topic Meningococcal B Vaccine Aged Out No l onger eligible based on patient's age to complete this topic RSV Immunization Patients Un susan 20 months Aged Out No longer eligible b ased on patient's age to complete this topic Varicella Vaccines Aged Out No longer eligible based on patient's age to complete this topic Care Teams Community Health Nurse Staff Relationship Specialty Start Date End Date Joe, MD Ely [address] [place] [address] [address] [facility] [place] [address] PCP - General Internal Medicine 05/31/17
--- OUTSIDE RECORDS SUMMARY | 2024-11-11 11:36 | XMS_ITS | Clinical Summary ---
Author Organization [facility] Address [address] [place] [address] Care Team Providers Care Engraving Press Operator Name Role Phone Ely Diaz MD Primary Care Provider [phone] Allergies No known active allergies Medications Aspirin Low Dose 81 MG EC tablet Take 81 mg by mouth daily. 02/14/2022 Active ciprofloxacin (CIPRO) 250 mg tablet Take 250 mg by mouth 2 (two) times a day. 02/27/2022 Active docusate sodium (COLACE) 100 MG capsule TAKE 1 CAPSULE BY MOUTH ORALLY DAILY FOR 90 DAYS 02/11/2022 Active fluticasone (FloNASE) 50 mcg/spray nasal spray 03/23/2022 Active lisinopril (PRINIVIL,ZeSTR IL) 20 MG tablet Take 20 mg by mouth daily. 01/11/2022 Active rosuvastatin (CRESTOR) 20 MG tablet Take 20 mg by mouth daily. 12/27/2021 Active traMADol (ULTRAM) 50 MG tablet Take 50 mg by mouth. 09/16/2021 Active amoxicillin-cla vulanate (AUGMENTIN) 875-125 MG per tablet Take 1 [...] at Not on file Legal Sex Female 1:09 PM EDT Gender Identity Not on file Sexual [...] Density (Females,Ag es 65 and older) 2021 COVID-19 Vaccine (1 - 2023-2 5 season) 2024 Influenza Vaccine 01/31/2025 09/11/2016 RSV Vaccine 60 years and old er and Patients (1 - 1-dose 75+ series) 11/01/2031 Hepatitis B Vaccines Aged Out No long er eligible based on patient's age to complete this topic Insurance MEDICARE PART A & B MEDICAID OUT OF STATE [facility] MEDIC[facility] PART A & B [facility] (AUTO/[facility]) Care Teams Engraving Press Operator Relationship Specialty Start Date End Date Ely Diaz MD [address] [place] [address] [place] [address] PCP - General Internal Medicine 04/14/19
--- OUTSIDE RECORDS SUMMARY | 2024-11-11 11:36 | XMS_ITS | Clinical Summary ---
Author Organization [facility] Address [address] [place] [address] Care Team Providers Care Fiber Technologist Name Role Phone Shayla Barrera MD Primary Care Provider [phone] Social History Tobacco Use Types Packs/Day Years [...] Pap Smear Discontinued Zoster (Zostavax) Discontinued Insurance [facility] FFS [employer] Care Teams Fiber Technologist Relationship Specialty Start Date End Date Shayla Barrera MD [address] [facility] [place] [address] PCP - General Internal Medicine 12/01/13
--- OUTSIDE RECORDS SUMMARY | 2024-11-11 11:36 | XMS_ITS | Continuity of Care Document ---
Author Organization [facility] Address [address] [address] Phone Care Team Providers Care Mass Spectrometry Specialist Name Role Phone Shayla Barrera MD Unavailable [...] Location Reason(s) For Visit Diagnoses Date Provider [facility], [address] [address], [place], [place], [id number], [place] tel:[phone] [place] No Information Jun-3 0-201 4 Bruce Mcguire. [address], [place], [place], [id number]. tel:[phone] [facility], [address], [place], [place], [id number], [place] tel:[phone] [place] Back pain f/u (chief complaint) LumbagoEpilepsy, unspecified, without mention of intractable epilepsy 4 Bruce Mcguire. [address], [place], [place], [id number]. tel:[phone] [facility], [address] [facility] [address], [place], [place], [id number], [place] tel:[phone] [place] LBP f/u (chief complaint) Lumbago 4 No Information [facility], [address] [facility], [place], [place], [id number], [place] tel:[phone] [place] No Information 4 No Information [facility], [address], [place], [place], [id number], [place] tel:[phone] [place] Lumbago 4 Bruce Mcguire. [address], [place], [place], [id number]. tel:[phone] [facility], [address], [place], [place], [id number], [place] tel:[phone] [place] back pain (chief complaint)m edication compliance (chief complaint) LumbagoMemory lossOther and unspecified hyperlipidemiaEpilepsy , unspecified, without mention of intractable epilepsy 4 Bruce Mcguire. [address], [place], [place], [id number]. tel:[phone] [facility], [address], [place], [place], [id number], [place] tel:[phone] [place] No Information 4 Bruce Mcguire. [address], [place], [place], [id number]. tel:[phone] [facility], [address] [facility] [address] [place] [address], [id number], [place] tel:[phone] [place] Routine Medical Exam Dec-0 4 Bruce Mcguire. [address], [place], [place], [id number]. tel:[phone] [facility], [facility], [place], [place], [id number], [place] tel:[phone] [place] No Information Dec- 4 Despres Janay. [address] [place], [address]. tel:[phone] [facility], [address] [facility] [address], [place], [place], [id number], [place] tel:[phone] [place] No Information 4 No Information [facility], [facility], [place], [place], [id number], [place] tel:[phone] [place] No Information 4 Bruce Mcguire. [address], [place], [place], [id number]. tel:[phone] [facility], [address] [facility] [address], [place], [place], [id number], [place] tel:[phone] [place] post enrollment evaluation (chief complaint)c hronic conditions [...] Dec-0 4 Bruce Mcguire. [address], [place], [place], [id number]. tel:[phone] [facility], [address] [facility] [address], [place], [place], [id number], tel:[phone] [place] Routine Medical ExamRoutine Medical ExamEpilepsy, unspecified, without mention of intractable epilepsyNoninfectious GastroenteritisHyperte nsion, UnspecifiedRespiratory InsufficiencyOther and unspecified hyperlipidemiaUrinary incontinence, unspecifiedSleep ApneaCOPDOsteoarthrosi s, unspecified whether generalized or localized, involving unspecified siteObesity, MorbidInsomnia due to medical condition classified elsewhereMononeuritis of unspecified siteMemory lossAbnormal Cardiac EnzymesOther chronic nonalcoholic liver diseaseSpinal stenosis of lumbar regionSOLITARY PULMONRY NODULEDepression Bruce Mcguire. [facility] [address], [place], [place], [id number]. tel:[phone] [facility], [facility], [place], [place], [id number], tel:[phone] [place] Intake visit (chief complaint) No Information No [...] Payer name Insurance type Covered libertarian ID Authorshekhara ticlaudio(s) [facility] 16 [id number] 1 Social History Type Description Quantity Date [...] day. Pt takes them out of med program planner. Sometimes forgets what she is saying [...]
== END 2024-11-11 12:05 | disposition home or self-care (01) ==
LOC: HO.HMCH 10:52
PROVIDERS: PCP Internal Medicine; Visit Provider Internal Medicine
DX: I25.10 Atherosclerotic heart disease of native coronary artery without angina pectoris (principal); G47.33 Obstructive sleep apnea (adult) (pediatric); E66.01 Morbid (severe) obesity due to excess calories; Z68.42 Body mass index [BMI] 45.0-49.9, adult; I10 Essential (primary) hypertension; K21.9 Gastro-esophageal reflux disease without esophagitis; E78.00 Pure hypercholesterolemia, unspecified; I73.9 Peripheral vascular disease, unspecified; F34.1 Dysthymic disorder; K76.0 Fatty (change of) liver, not elsewhere classified; Z13.1 Encounter for screening for diabetes mellitus

== ENCOUNTER → 2024-11-11 10:51 | Outpatient (BNVA) | payer OTHER, SELFPAY | PROVIDERS: PCP Internal Medicine; Visit Provider Internal Medicine | DX: I25.10 Atherosclerotic heart disease of native coronary artery without angina pectoris (principal); I10 Essential (primary) hypertension; G47.33 Obstructive sleep apnea (adult) (pediatric); K21.9 Gastro-esophageal reflux disease without esophagitis; E78.00 Pure hypercholesterolemia, unspecified; I73.9 Peripheral vascular disease, unspecified; F34.1 Dysthymic disorder; K76.0 Fatty (change of) liver, not elsewhere classified; E66.01 Morbid (severe) obesity due to excess calories; Z68.42 Body mass index [BMI] 45.0-49.9, adult; Z71.3 Dietary counseling and surveillance; Z13.1 Encounter for screening for diabetes mellitus | CPT/HCPCS: 83036; 96127; 99212 ==

== ENCOUNTER 2025-03-04 12:27 | Outpatient (AMB) | payer MEDICARE, MEDICAID, SELFPAY ==
--- OUTSIDE RECORDS SUMMARY | 2014-07-01 07:54 | XMS_ITS | Continuity of Care Document ---
Author Organization [facility] Address [address] [address] Phone Care Team Providers Care Exhibit Preparator Name Role Phone Shayla Barrera MD Unavailable [...] route every day 10 MG - Active Boostrix 2.5 Lf unit-8 mcg-5 Lf/0.5 mL intramuscular suspension IM x 1 unless allergic or has had in past 10 years - Active Pneumovax 23 25 mcg/0.5 mL [...] Location Reason(s) For Visit Diagnoses Date Provider [facility], [address] [address], [place], [place], [id number], [place] tel:[phone] [place] No Information Jun-3 0-201 4 Bruce Mcguire. [address], [place], [place], [id number]. tel:[phone] [facility], [address], [place], [place], [id number], [place] tel:[phone] [place] Back pain f/u (chief complaint) LumbagoEpilepsy, unspecified, without mention of intractable epilepsy 4 Bruce Mcguire. [address], [place], [place], [id number]. tel:[phone] [facility], [address] [facility], [place], [place], [id number], [place] tel:[phone] [place] LBP f/u (chief complaint) Lumbago 4 No Information [facility], [address] [facility] [facility], [place], [place], [id number], [place] tel:[phone] [place] No Information 4 No Information [facility], [address], [place], [place], [id number], [place] tel:[phone] [place] Lumbago 4 Bruce Mcguire. [address], [place], [place], [id number]. tel:[phone] [facility], [address], [place], [place], [id number], [place] tel:[phone] [place] back pain (chief complaint)m edication compliance (chief complaint) LumbagoMemory lossOther and unspecified hyperlipidemiaEpilepsy , unspecified, without mention of intractable epilepsy 4 Bruce Mcguire. [address], [place], [place], [id number]. tel:[phone] [facility], [address], [place], [place], [id number], [place] tel:[phone] [place] No Information 4 Bruce Mcguire. [address], [place], [place], [id number]. tel:[phone] [facility], [address] [facility] [address] [place] [address], [id number], [place] tel:[phone] [place] Routine Medical Exam Dec-0 4 Bruce Mcguire. [address], [place], [place], [id number]. tel:[phone] [facility], 1 [facility], [place], [place], [id number], [place] tel:[phone] [place] No Information Dec- 4 Despres Janay. [address] [place], [address]. tel:[phone] [facility], [address] [facility] [address] [facility], [place], [place], [id number], [place] tel:[phone] [place] No Information 4 No Information [facility], 1 [facility], [place], [place], [id number], [place] tel:[phone] [place] No Information 4 Bruce Mcguire. [address], [place], [place], [id number]. tel:[phone] [facility], [address] [facility] [address] [facility], [place], [place], [id number], [place] tel:[phone] [place] post enrollment evaluation (chief complaint)c hronic conditions [...] Dec-0 4 Bruce Mcguire. [address], [place], [place], [id number]. tel:[phone] [facility], [address] [facility] [address] [facility], [place], [place], [id number], tel:[phone] [place] Routine Medical ExamRoutine Medical ExamEpilepsy, unspecified, without mention of intractable epilepsyNoninfectious GastroenteritisHyperte nsion, UnspecifiedRespiratory InsufficiencyOther and unspecified hyperlipidemiaUrinary incontinence, unspecifiedSleep ApneaCOPDOsteoarthrosi s, unspecified whether generalized or localized, involving unspecified siteObesity, MorbidInsomnia due to medical condition classified elsewhereMononeuritis of unspecified siteMemory lossAbnormal Cardiac EnzymesOther chronic nonalcoholic liver diseaseSpinal stenosis of lumbar regionSOLITARY PULMONRY NODULEDepression Bruce Mcguire. [facility]note 2] [address], [place], [place], [id number]. tel:[phone] [facility], 1 [facility], [place], [place], [id number], tel:[phone] [place] Intake visit (chief complaint) No Information No [...] Record Payers Payer name Insurance type Covered alliance party ID Authorshekhara ticlaudio(s) [facility] 16 [id number] 1 Social History Type Description Quantity Date Captured Comments Sex Female Smoking Status No Information Chief Complaint And Reason For Visit No Information Plan Of Treatment Date Type Action Status Goal Eye Exam. Due on due Goal [...] Goal Eye Exam. Due on due Goal FOBT. Due on due Goal Influenza vaccine. Due on due Goal Depression screening. Due on due Goal Tdap. Due on due Goal Eye Exam. Due on due Goal FOBT. Due on due Goal Influenza vaccine. Due on due Goal Depression screening. Due on due Goal Tdap. Due on due Referral Ordered: Referrals: Dentistry. Evaluate and treat ordered Referral Ordered: referred to PT back pain (related to Urinary incontinence, unspecified) ordered Referral Ordered: referred to OT UI (related to Urinary incontinence, unspecified) ordered Unknown [...] be given something for pain. Requesting ibuprofen. back pain Additional infor mation: lumbar, center w ?radiation to post thigh. Relieved w sitting, lying. Worse w walking. medication compliance Reviewed h igh lipids, low dilantin level and pt reports probably due to missed meds. Misses mid day pills frequently and nightime meds sometimes chronic conditions post enrollment evaluation Pt ashlyn [...] day. Pt takes them out of med farm planner. Sometimes forgets what she is saying [...]
[2025-03-04 12:31] VITALS: BP 142/82; PULSE 74; O2SAT 97; BMI 48.9
--- NOTE | 2025-03-04 12:31 | A.OFFPC_ITS ---
Vital Signs 03/04/25 12:31 03/04/25 12:46 Height 5 ft 7 in Weight 312 lb BMI 48.9 BP 142/82 H 120/70 Blood Pressure Location Lt brachial Lt brachial Position Sitting Sitting Pulse 74 Pulse Source Pulse Oximeter Pulse Oximetry (%) 97 Oxygen Delivery Method Room Air Intake Visit Reasons: IGT, Cholesterol Allergies adhesive tape (ADHESIVE TAPE) Allergy (Intermediate, Verified 03/04/25 12:31) RASH atorvastatin Allergy (Unknown, Verified 03/04/25 12:31) Rash Medication List - Last Reconciled 03/04/25 by Ely Diaz MD albuterol sulfate 90 mcg/actuation 2 puffs PO Q4-6H PRN aspirin 81 mg PO DAILY colchicine 0.6 mg PO DAILY [CPAP 9-20 CM H20 heated and humidified As directed] [DEPENDS 4XL As directed] docusate sodium 100 mg PO DAILY fluticasone propionate 50 mcg/actuation 1 spray intranasal DAILY lisinopril 20 mg PO DAILY phenytoin sodium extended 200 mg (2 x 100 mg) PO BID 30 days [rollator XL As directed] rosuvastatin 40 mg PO DAILY 90 days sennosides-docusate sodium 8.6-50 mg (Senna Plus) 1-2 capsules orally bedtime; tirzepatide (weight loss) 7.5 mg subcut QWEEK tramadol 50 mg PO TID PRN 30 days trazodone 50 mg PO BEDTIME PRN Tobacco use date assessed: 08/06/24 Fall risk assessment: 1 Fall in past year Last assessed Fall Risk: 03/04/25 Dental Screening Dental Screen Date: 08/06/24 [facility] Medical History (Updated 09/06/24 @ 12:20 by Tayo Booker MD) DJD (degenerative joint disease) Insomnia Asthma Sleep apnea treated with continuous positive airway pressure (CPAP) Obesity History of back pain Depression Cholelithiasis Peripheral vascular disease Peripheral neuropathy Coronary artery disease Carpal tunnel syndrome Hypercholesterolemia GERD (gastroesophageal reflux disease) Pulmonary nodule, left Hypertension Seizures Obstructive sleep apnea Vitamin D deficiency Hx of essential hypertension Surgical History Hx of tubal ligation Hx of colonoscopy History of tonsillectomy History of carpal tunnel release H/O foot surgery History of Stented coronary artery Family History Father Myocardial infarction Mother Medical history unknown Paternal Aunt Breast cancer Maternal Aunt Ovarian cancer Social History Household Members Other:: son Housing: Apartment Are you a primary child day care center worker to a significant other at home: No Do you presently have visiting nurse or other home services: No Alcohol intake: never Patient Tobacco Use Status: Never used Tobacco Tobacco use type: Cigarette e-Cigarette/Vaping Use: Never Used Second Hand Smoke Exposure: No service: No Current occupational status: disabled Sexual orientation: Straight/Heterosexual Gender identity: Female Cognitive needs: Yes (candejan walker) Hearing needs: No Vision needs: No Questionnaire PHQ-9 Over the last 2 weeks, how often have you been bothered by any of the following problems? 1. Little interest or pleasure in doing things: not at all 2. Feeling down, depressed, or hopeless: several days 3. Trouble falling or staying asleep, or sleeping too much: several days 4. Feeling tired or having little energy: several days 5. Poor appetite or overeating: several days 6. Feeling bad about yourself - or that you are a failure or have let yourself or your family down: several days 7. Trouble concentrating on things, such as reading the newspaper or watching television: several days 8. Moving or speaking so slowly that other people could have noticed. Or the opposite - being so fidgety or restless that you have been moving around a lot more than usual: several days 9. Thoughts that you would be better off or of hurting yourself in some way: several days Total score: 8 Depression Screening Interpretation: Positive Depression Screening Done: Yes Source: Developed by Drs. Heraclio Nesbitt, Skylar Latham, Abdifatah Echevarria and colleagues, with an educational nghia from [employer]. Thrive Questionnaire Date Thrive assessed: 11/11/24 I am a: Patient What is your living situation today?: I have a steady place to live Within the past 12 months, did the food you bought not last and you didn't have the money to get more?: Never true Within the past 12 months, did you worry whether your food would run out before you got money to buy more?: Never true Do you have trouble paying for medicines?: No Do you have trouble getting transportation to medical appointments?: No Do you have trouble paying your heating and electricity bill?: No Do you have trouble taking care of your child, family member or friend?: No Do you have trouble with day-to-day activities such as bathing, preparing meals, shopping, managing finances, etc.?: No Are you currently unemployed and looking for a job?: No Are you interested in more education?: No Please select the resources that you would like help with: None Currently or been in a relationship where the following occur: No concerns reported THRIVE Score: 0 AUDIT C Alcohol Use Questionnaire (AUDIT-C) 1. How often do you have a drink containing alcohol?: Never 3. How often do you have six or more drinks on one occasion?: Never Total Score: 0 JUAN-7 AMB Questionnaire JUAN-7 Date JUAN - 7 assessed: 11/11/24 Source: Developed by Drs. Heraclio Nesbitt, Skylar Latham, Abdifatah Echevarria and colleagues, with an educational nghia from [employer]. Physical exam (Primary Care) Vital Signs: Last Vital Signs Pulse 74 03/04/25 12:31 BP 120/70 03/04/25 12:46 Pulse Ox 97 03/04/25 12:31 Oxygen Delivery Method Room Air 03/04/25 12:31 BMI result Body Mass Index 48.9 Tobacco/Smoking Status: Tobacco use Status Tobacco use date assessed 08/06/24 03/04/25 12:32 Patient Tobacco Use Status Never used Tobacco 03/04/25 12:32 Tobacco use type Cigarette 03/04/25 12:32 e-Cigarette/Vaping Use Never Used 03/04/25 12:32 PHQ-9: PHQ-9 Score PHQ-9: Total score 8 03/04/25 12:43 Depression Screening Interpretation: Positive Thrive Assessment: Date of Thrive Assessment Date Thrive assessed 11/11/24 03/04/25 12:32 Currently or been in a relationship where the following occur: No concerns reported Const General: alert; No acute distress Eyes Conjunctivae: conjunctivae normal Resp Auscultation: clear to auscultation bilaterally Cardio Rate: regular rate Rhythm: regular rhythm GI Inspection: Yes normal to inspection Extrem General: Yes normal to inspection and No edema Coding Level of Care Code Est Pt Level 4 (40554) Complex EM visit Add On G2211 Diagnoses Obstructive sleep apnea G47.33 Seizures R56.9 Gastroesophageal reflux disease without esophagitis K21.9 Esophagitis presence: without esophagitis Fatty liver K76.0 Morbid obesity E66.01 Hypercholesterolemia E78.00 Coronary artery disease involving absentee-shawnee coronary artery of absentee-shawnee heart without angina pectoris I25.10 Associated angina: without angina Coronary Disease-Associated Artery/Lesion type: absentee-shawnee artery [place] vs. transplanted heart: absentee-shawnee heart Essential hypertension I10 Hypertension type: essential hypertension Persistent depressive disorder F34.1 Depression Type: persistent depressive disorder Assessment & Plan Assessment & Plan (1) Obstructive sleep apnea: Comment: August 2019, BiPAP uses every night Code(s): G47.33 - Obstructive sleep apnea (adult) (pediatric) Category: Medical Plan: Continue to use the CPAP more than 4 hours a night and benefits from this. (2) Seizures: Comment: Last seizure 2018 Code(s): R56.9 - Unspecified convulsions Category: Medical Plan: Controlled on phenytoin (3) GERD (gastroesophageal reflux disease): Code(s): K21.9 - Gastro-esophageal reflux disease without esophagitis Category: Medical Qualifiers: Esophagitis presence: without esophagitis Qualified Code(s): K21.9 - Gastro-esophageal reflux disease without esophagitis Plan: Avoid the foods that causes that usually spicy foods, tomato products, juices, coffee, soda and foods that your sensitive to. After eating do not lie down, allow 3-4 hours before in lie down. And keep the head of bed above 30 degrees to avoid the acid from going up. (4) Fatty liver: Code(s): K76.0 - Fatty (change of) liver, not elsewhere classified Category: Medical Plan: Low-fat diet and exercise (5) Morbid obesity: Code(s): E66.01 - Morbid (severe) obesity due to excess calories Category: Medical Plan: Patient has been prescribed tirzepatide and has been noted to lose weight (6) Hypercholesterolemia: Code(s): E78.00 - Pure hypercholesterolemia, unspecified Category: Medical Plan: Avoid fried foods, chicken skin, eggs, butter margarine, pastries and meat. Be it pork or beef they have a lot of cholesterol LDL goal of less than 70 and triglyceride of less than 150 will need follow-up blood work patient is on rosuvastatin 40 mg once a day (7) Coronary artery disease: Comment: STEMI 08/2016 BELINDA to RP[facility], Sees Dr Dougherty- [facility] 02/2020 EF 60-65% moderate diastolic dysfunction Code(s): I25.10 - Atherosclerotic heart disease of absentee-shawnee coronary artery without angina pectoris Category: Medical Qualifiers: Associated angina: without angina Coronary Disease-Associated Artery/Lesion type: absentee-[place]nee artery [place] vs. transplanted heart: absentee-shawnee heart Qualified Code(s): I25.10 - Atherosclerotic heart disease of absentee-shawnee coronary artery without angina pectoris Plan: Control the cholesterol, weight, blood pressure, diabetes on aspirin 81 mg once a day (8) Hypertension: Code(s): I10 - Essential (primary) hypertension Category: Medical Qualifiers: Hypertension type: essential hypertension Qualified Code(s): I10 - Essential (primary) hypertension Plan: Continue with blood pressure medication. Decrease salt intake and exercise continue with lisinopril 20 mg once a day (9) Depression: Comment: counselling Q monday and helps patient (05/2021) Billie Code(s): F32.9 - Major depressive disorder, single episode, unspecified Category: Medical Qualifiers: Depression Type: persistent depressive disorder Qualified Code(s): F34.1 - Dysthymic disorder Plan: Continue with counseling and therapy Plan History of Present Illness The patient is a 69-year-old female presenting for a follow-up visit. The patient has a history of obstructive sleep apnea and continues to use CPAP therapy for more than 4 hours a night, which she finds beneficial. She has experienced a 6-pound weight loss, which is a positive development in her management plan. The patient has a history of hypertension, hypercholesterolemia, and coronary artery disease. Her last blood work in August 2024 showed normal blood count and electrolytes, with mildly elevated blood sugar but normal hemoglobin A1c at 5.3%. Her LDL cholesterol was noted to be 97 mg/dL, with a goal of less than 70 mg/dL due to her coronary artery disease. The patient also has a history of seizure disorder, peripheral vascular disease, hepatic steatosis, and asthma. Her liver enzymes were mildly elevated at 44, and vitamin B1 was low at 7. Preventative care measures include a mammogram, which is due, and a colonoscopy last performed in 2017, while her bone density is up to date. Health Maintenance - Mammogram is due - Colonoscopy last performed in 2017 - Bone density is up to date - Blood work planned to monitor cholesterol and liver function - Weight management through diet and exercise Social History - Exercise: Patient is encouraged to increase physical activity, including walking and avoiding prolonged sedentary behavior. - Weight Management: Patient is on a weight loss plan with Tirzepatide and has lost 6 pounds. Review of Systems - Cardiovascular: Denies chest pain, reports controlled blood pressure. - Respiratory: Reports benefit from CPAP use for obstructive sleep apnea. - Endocrine: Reports weight loss of 6 pounds. Physical Exam - Cardiovascular: Blood pressure 124/7 mmHg, indicating good control. Results - Labs: Normal blood count and electrolytes, mildly elevated blood sugar, normal hemoglobin A1c at 5.3%, LDL cholesterol at 97 mg/dL, liver enzymes mildly elevated at 44, vitamin B1 low at 7. Plan Patient was informed and verbally consented to the use of an ambient scribe for clinic note documentation during this visit. 1. Obstructive Sleep Apnea The patient will continue using CPAP therapy for more than 4 hours a night, as it has been beneficial. 2. Hypertension The patient will continue with lisinopril 20 mg once a day to manage blood pressure, which is currently well-controlled. 3. Hypercholesterolemia The patient is on rosuvastatin 40 mg once a day, with a goal to reduce LDL cholesterol to less than 70 mg/dL. 4. Coronary Artery Disease The patient is advised to continue aspirin 81 mg once a day as part of her coronary artery disease management. 5. Seizure Disorder The patient will continue current management for seizure disorder, with no changes discussed. 6. Peripheral Vascular Disease The patient will continue current management for peripheral vascular disease, with no changes discussed. 7. Hepatic Steatosis The patient is advised to follow a no-fat diet and exercise plan to manage hepatic steatosis. 8. Asthma The patient will continue current management for asthma, with no changes discussed. 9. Vitamin B1 Deficiency The patient is advised to address vitamin B1 deficiency, with supplementation as needed. Discussion Notes During the visit, we discussed the importance of continuing CPAP therapy for obstructive sleep apnea and maintaining current medication regimens for hypertension, hypercholesterolemia, and coronary artery disease. We also reviewed the need for follow-up blood work to monitor cholesterol levels and liver function, and the importance of weight management through diet and exercise. The patient was informed about the due mammogram and the importance of preventative care measures. Patient Instructions - Continue using CPAP therapy for more than 4 hours a night. - Take lisinopril 20 mg once a day for blood pressure management. - Take rosuvastatin 40 mg once a day to manage cholesterol levels. - Take aspirin 81 mg once a day for coronary artery disease management. - Follow a no-fat diet and exercise regularly to manage hepatic steatosis. - Schedule and complete a mammogram as it is due. - Plan for follow-up blood work to monitor cholesterol and liver function. Medications: New tirzepatide (weight loss) (Zepbound) 7.5 mg (0.5 mL) subcut QWEEK 2 mL 4RF E66.01 - Morbid (severe) obesity due to excess calories Discontinued tirzepatide (weight loss) for 4 weeks Discontinued Reason: Duplicate 7.5 mg subcut QWEEK E66.01 - Morbid (severe) obesity due to excess calories
[2025-03-04 12:46] VITALS: BP 120/70
--- OUTSIDE RECORDS SUMMARY | 2025-03-04 13:38 | XMS_ITS | Clinical Summary ---
Author Organization [address] [place] [address] [place] [address] Phone Care Team Providers Care Management Professional Name Role Phone Ely Rosales MD Primary Care Provider [phone] Allergies Active Allergy Reactions Criticality Noted Date Comments Latex Hives 01/22/2025 Medications HYDROcodone-ethan taminophen (VICODIN) 5-300 mg per tablet Take 1 tablet by mouth every 6 hours as needed (pain). 3 Active lisinopriL (PRINIVIL,ZESTR IL) 10 mg tablet Take 10 mg by mouth daily. Active phenytoin (DILANTIN) 100 mg ER capsule Take 300 mg by mouth 2 times daily. 200mg at noon Active simvastatin (ZOCOR) 20 mg tablet Take 20 mg by mouth at bedtime. Active aspirin 81 mg EC tablet Take 1 tablet (81 mg total) by mouth 1 (one) time each day. Active docusate sodium (COLACE) 100 mg capsule TAKE 1 CAPSULE BY MOUTH ORALLY DAILY FOR 90 DAYS 0 Active fluticasone propionate (FLONASE) 50 mcg/actuation nasal spray Administer 1 spray into each nostril 1 (one) time each day. Active furosemide (LASIX) 20 mg tablet Take 1 tablet (20 mg total) by mouth. 0 Active rosuvastatin (CRESTOR) 20 mg tablet Take 1 tablet (20 mg total) by mouth 1 (one) time each day. Active rosuvastatin (CRESTOR) 40 mg tablet Take 1 tablet (40 mg total) by mouth 1 (one) time each day. 5 Active traMADoL (ULTRAM) 50 mg tablet Take 1 tablet (50 mg total) by mouth 3 (three) times a day if needed. for pain Max Daily Amount: 150 mg Active traZODone (DESYREL) 50 mg tablet Take 1 tablet (50 mg total) by mouth at bedtime as needed. at bedtime for sleep 4 Active lisinopriL (PRINIVIL,ZESTR IL) 20 mg tablet Take 1 tablet (20 mg total) by mouth 1 (one) time each day. Active tirzepatide, weight loss, (Zepbound) 7.5 mg/0.5 mL injection Inject 0.5 mL (7.5 mg total) under the skin every 7 (seven) days. 2 mL 5 Active Active Problems Problem Noted Date Diagnosed Date Morbid obesity [place] [place] [facility] V28) 2013 Overview (07/29/2024): BMI 48.45 on 01/25/13. Depression 09/18/2012 Overview (07/29/2024): Sees therapist not on meds HTN (hypertension) 09/18/2012 Overview (07/29/2024): Previous pcp dr ROSALES Hyperlipidemia 09/18/2012 Seizures ([facility] [place], [facility] V28) 09/18/2012 Encounters Date Type Department Care Team Description 01/22/2025 9:30 AM EDT Office Visit Bariatric Surgery - [address] [place] [address] Renee Flowers PA Morbid obesity ([facility] [place]24, [facility] V28) (Primary Dx) from Last 3 Months Family History Medical History Relation Name Comments [...] Sexual Orientation Not on file Obstetrics History Last Filed Vital Signs Vital Sign Reading Time Taken Comments Blood Pressure 111/73 01/22/2025 9:28 AM EDT Pulse 79 01/22/2025 9:28 AM EDT Temperature - - Respiratory Rate - - Oxygen Saturation - - Inhaled Oxygen Concentration - - Weight 143 kg (316 lb) 01/22/2025 9:28 AM EDT Height 166.4 cm (5' 5.5 ) 01/22/2025 9:28 AM EDT Body Mass Index 51.79 01/22/2025 9:28 AM EDT Plan of Treatment Upcoming Encounters Date Type Department Care Team (Late st Contact Info) Description 04/23/2025 10:00 AM EDT Nutrition Bariatric Surgery - [facility] [address] [address] Priya Garrison, RD [address] [address] 06/03/2025 11:00 AM EST Office Visit Bariatric Surgery - [facility] [address] [address] Renee Flowers, RALF [address] [place] [address] Health Maintenance Due Date Last Done Comments Breast Cancer Screening 1955 Zoster Vaccines (1 of 2) 2006 RSV Immunization Adult Patients (1 - Risk 60-74 years 1-dose series) 2016 Pneumococcal Vaccine: 50+ Years (2 of 2 - PCV) 02/09/2022 02/09/2021, 09/11/2016 Cholesterol Screening (Lipid Panel) 06/01/2022 Colorectal Cancer Screening: Colonoscopy 06/01/2022 Falls Risk Assessment 06/01/2022 Hepatitis C Screening 06/01/2022 Medicare Annual Wellness Visit 06/01/2022 Osteoporosis Screening (Bone Density Screening) 06/01/2022 Social Influencers of Health Screening 06/01/2022 Hypertension/CHF/CAD Annual BMP Blood Test 06/17/2022 COVID-19 Vaccine (3 - 2023-2 5 season) 2024 09/14/2021, 10/06/2020 Depression Screening 07/03/2024 Influenza Vaccine (#1) 2025 2, 04/12/2017, 09/11/2016 DTaP,Tdap,and Td Vaccines (2 - Td or Tdap) 08/11/2027 08/11/2017 HIB Vaccines Aged Out No longer eligi [...] to complete this topic RSV Immunization Patients Under 20 months Aged Out No longer eligible b ased on patient's age to complete this topic Varicella Vaccines Aged Out No longer eligible based on patient's age to complete this topic Insurance MEDICA[place] - [place] MEDICARE Care Teams Management Professional Relationship Specialty Start Date End Date Ely Rosales MD [address] [place] [address] Dr Monk [address] [facility] [place] [id number] PCP - General Internal Medicine 05/31/17
--- OUTSIDE RECORDS SUMMARY | 2025-03-04 13:38 | XMS_ITS ---
Author Name [facility] Organization Unknown History of Medication Use Medication Directions Dispensed Refills Start Date End Date Stat us ciprofloxacin (CIPRO) 250 mg tablet Take 250 mg by mouth 2 (two) times a day. 02/27/2022 active Aspirin Low Dose 81 MG EC tablet Take 81 mg by mouth daily. 02/14/2022 active Problems Problem Status Onset Date Problem Type Date of Resoluti on Source Acute otitis externa of right ear, unspecified type active EncounterDiagnosisAct [facility] Acute parotitis active [facility] Encounters Encounter Type Encounter Reason Primary Diagnosis Location Date Ambulatory Unspecified acut e noninfective otitis externa, right ear [facility] 03/26/2022 Care Team Organization Name Specialty Phone Email Start Date End [facility] 03/26/2022 03/26/2022 [facility] TONI ROSALES Primary Care 03/26/2022
--- OUTSIDE RECORDS SUMMARY | 2025-03-04 13:38 | XMS_ITS | Clinical Summary ---
Author Organization [facility] Address [address] [place] [address] Care Team Providers Care Single Stayer Operator Name Role Phone Ely Diaz MD Primary Care Provider [phone] Allergies No known active allergies Medications Aspirin [...] 63 03/26/2022 10:56 AM EDT Temperature 36.2 C (97.2 F) 03/26/2022 10:56 AM EDT Respiratory Rate 18 04/14/2019 3:54 PM EDT Oxygen Saturation 96% 03/26/2022 10:56 AM EDT Inhaled Oxygen Concentration - - Weight - - Height - - Body Mass Index - - Plan of Treatment Health Maintenance Due Date Last Done Comments Advance Care Planning 1955 Hepatitis C Virus Screening 1955 DTaP/Tdap/Td Vaccines [...] topic Insurance [place] [id number] MEDICAID OUT OF STATE [facility] [place] A [place] B [facility] [place] (AUTO/LIABILITY) Care Teams Single Stayer Operator Relationship Specialty Start Date End Date Ely Diaz MD [address] [place] [address] [place] [address] PCP - General Internal Medicine 04/14/19
--- OUTSIDE RECORDS SUMMARY | 2025-03-04 13:38 | XMS_ITS | Clinical Summary ---
Author Organization [facility] Address [address] [place] [address] Care Team Providers Care Lead Security Officer Name Role Phone Shayla Barrera MD Primary Care Provider [phone] Social History Tobacco Use Types Packs/Day Years [...] COVID-19 Vaccine ( - 2023-2 5 season) 2025 Influenza (#1) 2025 RSV (1 - 1-dose 75+ series) 11/01/2031 HPV Vaccine (No Doses Required) Completed Hep A Aged Out No longer eligi [...] Pap Smear Discontinued Zoster (Zostavax) Discontinued [place] [address] [address] [address] [employer]FS [employer] Care Teams Lead Security Officer Relationship Specialty Start Date End Date Shayla Barrera MD [address] [place] [address] PCP - General Internal Medicine 12/01/13
== END 2025-03-04 13:02 | disposition home or self-care (01) ==
LOC: HO.HMCH 12:28
PROVIDERS: PCP Internal Medicine; Visit Provider Internal Medicine
DX: G47.33 Obstructive sleep apnea (adult) (pediatric) (principal); R56.9 Unspecified convulsions; E66.01 Morbid (severe) obesity due to excess calories; Z68.42 Body mass index [BMI] 45.0-49.9, adult; K21.9 Gastro-esophageal reflux disease without esophagitis; K76.0 Fatty (change of) liver, not elsewhere classified; E78.00 Pure hypercholesterolemia, unspecified; I25.10 Atherosclerotic heart disease of native coronary artery without angina pectoris; I10 Essential (primary) hypertension; F34.1 Dysthymic disorder

== ENCOUNTER → 2025-03-04 12:27 | Outpatient (BNVA) | payer MEDICARE, MEDICAID, SELFPAY | PROVIDERS: PCP Internal Medicine; Visit Provider Internal Medicine | DX: G47.33 Obstructive sleep apnea (adult) (pediatric) (principal); K21.9 Gastro-esophageal reflux disease without esophagitis; K76.0 Fatty (change of) liver, not elsewhere classified; E66.01 Morbid (severe) obesity due to excess calories; E78.00 Pure hypercholesterolemia, unspecified; I25.10 Atherosclerotic heart disease of native coronary artery without angina pectoris; I10 Essential (primary) hypertension; F34.1 Dysthymic disorder; G40.909 Epilepsy, unspecified, not intractable, without status epilepticus; I73.9 Peripheral vascular disease, unspecified; J45.909 Unspecified asthma, uncomplicated; E53.8 Deficiency of other specified B group vitamins; Z68.42 Body mass index [BMI] 45.0-49.9, adult | CPT/HCPCS: 96127; 99212 ==

== ENCOUNTER 2025-03-07 09:40 | Outpatient (REF) | payer MEDICARE, MEDICAID, SELFPAY ==
[2025-03-07 10:08] LABS: MANUAL DIFF FLAG NO
--- OUTSIDE RECORDS SUMMARY | 2025-03-07 10:28 | XMS_ITS | Clinical Summary ---
Author Organization [address] [place] [address] [place] [phone] Phone Care Team Providers Care Conditioning Coach Name Role Phone Ely Rosales MD Primary Care Provider [phone] Allergies Active Allergy Reactions Criticality Noted Date Comments Latex Hives 01/22/2025 Medications HYDROcodone-ac etaminophen (VICODIN) 5-300 mg per tablet Take 1 tablet by mouth every 6 hours as needed (pain). 01/26/20 13 Active lisinopriL (PRINIVIL,ZEST RIL) 10 mg tablet Take 10 mg by [...] BY MOUTH ORALLY DAILY FOR 90 DAYS 08/29/19 20 Active fluticasone propionate (FLONASE) 50 mcg/actuation nasal spray Administer 1 spray into each nostril 1 (one) time each day. Active furosemide (LASIX) 20 mg tablet Take 1 tablet (20 mg total) by mouth. 01/08/20 20 Active rosuvastatin (CRESTOR) 20 mg tablet Take 1 tablet (20 mg total) by mouth 1 (one) time each day. Active rosuvastatin (CRESTOR) 40 mg tablet Take 1 tablet (40 mg total) by mouth 1 (one) time each day. 11/12/19 25 Active traMADoL (ULTRAM) 50 mg tablet Take 1 tablet (50 mg total) by mouth 3 (three) times a day if needed. for pain Max Daily Amount: 150 mg Active traZODone (DESYREL) 50 mg tablet Take 1 tablet (50 mg total) by mouth at bedtime as needed. at bedtime for sleep 04/29/20 24 Active lisinopriL (PRINIVIL,ZEST RIL) 20 mg tablet Take 1 tablet (20 mg total) by mouth 1 (one) time each day. Active Zepbound 7.5 mg/0.5 mL injection ADMINISTER 7.5 MG UNDER THE SKIN EVERY 7 DAYS 2 mL 03/05/20 25 Active tirzepatide, weight loss, (Zepbound) 7.5 mg/0.5 mL injection Inject 0.5 mL (7.5 mg total) under the skin every 7 (seven) days. 2 mL 01/23/20 25 025 Discontinued Active Problems Problem Noted Date Diagnosed Date Morbid obesity ([facility] V24, [facility] V28) 2013 Overview (07/29/2024): BMI 48.45 on 01/25/13. Depression 09/18/2012 Overview (07/29/2024): Sees therapist not on meds HTN (hypertension) 09/18/2012 Overview (07/29/2024): Previous pcp dr ROSALES Hyperlipidemia 09/18/2012 Seizures ([facility] V24, [facility] V28) 09/18/2012 Encounters Date Type Department Care Team Description 01/22/2025 9:30 AM EDT Office Visit Bariatric Surgery - [address] [place] [address] Renee Flowers PA Morbid obesity ([facility] V24, [facility] V28) (Primary Dx) from Last 3 Months [...] 04/23/2025 10:00 AM EDT Nutrition Bariatric Surgery [address] [phone] Priya Garriosn, RD [address] [address] 06/03/2025 11:00 AM EST Office Visit Bariatric Surgery [address] [address] Renee Flowers PA [address] [place] [phone] Health Maintenance Due Date Last Done Comments [...] 06/01/2022 Hypertension/CHF/CAD Annual BMP Blood Test 06/17/2022 Depression Screening 07/03/2024 COVID-19 Vaccine (3 - 2024-2 6 season) 2025 09/14/2021, 10/06/2020 Influenza Vaccine (#1) 2025 , 04/12/2017, 09/11/2016 DTaP,Tdap,and Td Vaccines (2 - [...] Insurance MEDICAID - [place] MEDICARE Care Teams Conditioning Coach Relationship Specialty Start Date End Date Ely Rosales MD [address] [place] [address] [address] [facility] [place] [address] PCP - General Internal Medicine 05/31/17
--- OUTSIDE RECORDS SUMMARY | 2025-03-07 10:28 | XMS_ITS | Clinical Summary ---
Author Organization [facility] Address [address] [place] [address] Care Team Providers Care Yard Supervisor Cotton Gin Name Role Phone Shayla Barrera MD Primary Care Provider [phone] Social History Tobacco Use Types Packs/Day Years [...] Pap Smear Discontinued Zoster (Zostavax) Discontinued [place] [address] [place] [address] F[employer] Care Teams Yard Supervisor Cotton Gin Relationship Specialty Start Date End Date Shayla Barrera MD [address] [place] [address] PCP - General Internal Medicine 12/01/13
--- OUTSIDE RECORDS SUMMARY | 2025-03-07 10:29 | XMS_ITS | Clinical Summary ---
Author Organization [facility] Address [address] [place] [address] Care Team Providers Care Natural Gas Technician Name Role Phone lEy Diaz MD Primary Care Provider [phone] Allergies No known active allergies Medications Aspirin [...] Insurance [place] [id number] MEDICAID OUT OF STATE [facility] MEDICARE PART A & B [facility] TPL (AUTO/LIABILITY) Care Teams Natural Gas Technician Relationship Specialty Start Date End Date Ely Diaz MD [address] [place] [address] [place] [address] PCP - General Internal Medicine 04/14/19
[2025-03-07 10:30] LABS: Hematocrit 41.5 % (37.0-47.0); Hemoglobin 13.9 g/dl (12.0-16.0); Imm Gran Abs Auto 0.03 X10*3/uL (0.00-0.03); Imm Gran Pct Auto 0.4 % (0.0-0.4); Lymphocytes Absolute Auto 2.1 X10*3/uL (1.2-4.9); Mean Corpuscular HGB Conc 33.5 g/dl (31.0-35.0); Mean Corpuscular Hemoglobin 29.2 pg (27.0-33.0); Mean Corpuscular Volume 87.2 fL (80.0-98.0); NRBC Abs Auto 0.000 X10*3/uL (0.0-0.012); NRBC Pct Auto 0.0 /100WBC (0.0-0.2); Platelet Count 195 X10*3/uL (160-400); Red Blood Count 4.76 X10*6/uL (4.20-5.50); White Blood Count 8.4 X10*3/uL (4.8-10.8)
[2025-03-07 10:54] LABS: Hemoglobin A1C 138.8831 umol/L; Total Hemoglobin (HGBA1C) 3678.9004 umol/L
[2025-03-07 11:23] LABS: Alanine Aminotransferase 28 U/L (0-31); Albumin Level 3.7 g/dL (3.5-5.0); Alkaline Phosphatase 139 U/L (39-117); Anion Gap 11 (12-20); Aspartate Amino Transferase 45 U/L (5-31); Blood Urea Nitrogen 14 mg/dL (9-16); Calcium 9.2 mg/dL (8.4-10.2); Carbon Dioxide 27 mmol/L (22-29); Chloride 105 mmol/L (96-108); Cholesterol 152 mg/dL (<200); Estimated Glomerular Filt Rate > 60; HDL Cholesterol 50 mg/dL (>40); Potassium 4.8 mmol/L (3.3-5.1); Sodium 138 mmol/L (135-145); Total Protein 7.6 g/dL (6.5-8.0); Triglycerides 71 mg/dL (<150)
[2025-03-07 11:28] LABS: Folate 11.5 ng/mL (> or = 4.0); Vitamin B12 600 pg/mL (200-900)
[2025-03-07 11:30] LABS: Free T4 (Free Thyroxine) 0.92 ng/dL (0.71-1.85); Thyroid Stimulating Hormone 1.79 uIU/mL (0.32-4.0)
== END 2025-03-07 09:41 | disposition home or self-care (01) ==
LOC: HO.LAB 09:40
PROVIDERS: PCP Internal Medicine; Visit Provider Internal Medicine
DX: Z13.1 Encounter for screening for diabetes mellitus (principal); E78.00 Pure hypercholesterolemia, unspecified
CPT/HCPCS: 36415; 80053; 80061; 82607; 82746; 83036; 84439; 84443; 85025

== ENCOUNTER 2025-04-24 10:02 | Outpatient (AMB) | payer MEDICARE, MEDICAID, SELFPAY ==
--- OUTSIDE RECORDS SUMMARY | 2025-04-23 10:00 | XMS_ITS | Encounter Summary ---
Author Organization [facility] Address [id number] [place] [phone] Care Team Providers Care Horse Rancher Name Role Phone Ely Diaz MD Primary Care Provider [phone] Reason for Visit * Reason Comments Obesity Encounter Details Date Type Department Care Team ([facility] st Contact Info) Description 04/23/2025 10:00 AM EDT Nutrition Bariatric Surgery - [address] [address] Priya Garrison, MEL [address] [address] Class 3 severe obesity with serious comorbidity and body mass index (BMI) of 50.0 to 59.9 in adult, unspecified obesity type (CMS/HCC V24, CMS/HCC V28) (Primary Dx) Social History Tobacco Use Types Packs/Day Years Used Date Smoking Tobacco: Former Smokeless Tobacco: Never Alcohol Use Standard Drinks/Week Comments No 0 (1 standard drink = 0.6 oz pur e alcohol) Comments Unknown Sex and Gender Information Value Date Recorded Sex Assigned at Not on file Legal Sex Female 2:09 PM EST Gender Identity Not on file Sexual Orientation Not on file documented as of this encounter Last Filed Vital Signs Vital Sign Reading Time Taken Comments Blood Pressure - - Pulse - - Temperature - - Respiratory Rate - - Oxygen Saturation - - Inhaled Oxygen Concentration - - Weight 143 kg (315 lb) 04/23/2025 10:15 AM EDT Height - - Body Mass Index 51.62 01/22/2025 9:28 AM EDT documented in this encounter Progress Notes * Priya Garrison RD - 04/23/2025 10:00 AM EDT Patient-created Goals: Look on utube for upper body and or core chair workouts for beginners 64 oz of water daily - preferably sipping throughout the day -Start with one glass per day -can add herbal tea bags, crystal light, lemon/ [place], orange juice from fruit 70 -90 grams of protein per day from lean protein sources such as chicken, turkey, fish, beans, Lebanese yogurt (Brands: Okios, Ratio; 20-25 g protein), cottage cheese, eggs, tuna 20-30 grams protein each meal; 7-15 grams each snack A minimum of 3 meals per day, consistent eating times Each meal and snack should include protein Protein shakes can replace a meal or snack, look for 20-30 grams of protein, less than 5 grams of added sugar (orgain, fair-life) Can use bone broth for added protein -Collagen (CinemaKi, amazon) can be added to any liquid (oat meal, bone broth, water) -Decrease sugary snacks - replace with tsp of honey if that works for you All available on utube [place] Funes (Insomnia, Diet and Exercise, anxiety, depression) Yoga Nidra Vagus Nerve Stimulation or Reset by Winifred Herrera I am affirmations Dr. Robinson Poon Mediations Priya Garrison RDN Bariatric Dietitian [email or web address] [phone] F [phone] [address] [facility] [address] * Priya Garrison RD - 04/23/2025 10:00 AM EDT INITIAL NUTRITION CONSULT Patient Name: Angeles Salazar Date of : 1955 Date of Service: 04/23/2025 SURGEON: Consuelo Cuevas MD DESIRED SURGERY: Medication Management Zepbound started May not eat all day, then eats at night CHIEF COMPLAINT: Obesity HISTORY: Angeles Salazar is a 69 y.o. Female who presents for initial nutrition visit for Weight loss management Reports reasons for wanting to lose weight: To improve mobility, Overall Health, and To be able to be more active What made you decide to have weight loss surgery? N/a Do you know anyone who has had weight loss surgery? N/a Previous Weight Loss Methods: Eating differently History of Dietitian/Dragline Operator Visits previously: No Ht Readings from Last 1 Encounters: 01/22/25 1.664 m (65.5 ) Wt today: Wt Readings from Last 2 Encounters: 04/23/25 143 kg (315 lb) 01/22/25 143 kg (316 lb) Body mass index is 51.62 kg/m??. Wt at initial: 316 Wt change since initial: -1 EBW = current - wt at BMI of 25: 315 - 150 = 165 Goal wt: 200 Highest/lowest wt: 328/150 - 160 Onset of obesity: since Family history of obesity: Yes Possible triggers to weight gain: emotional eating, Life events that lead to weight gain: (40-45yrs) Factors making weight loss difficult: depression ( 2 years ago) Weight change in the past year: -/+ 20ish lb May not eat all day, then eats at night EATING HABITS/DIET RECALL: wake up: 8-10 am): Sleep: 2-3 am Breakfast: (8:30- 12 pm) skips, will eat eggs (3) every other morning, toast with coffee or crackers Lunch: If eats will have the three eggs Snacks: tomato's and cucumbers Dinner: (6 pm): steak with vegetables, pasta with garlic, beef, chicken with salad Snacks: mini cucumbers, honey bun, short bread cookies Beverages: water (), diet green tea , coffee with milk and sugar, cottage cheese Dislikes: has tried premiere shakes, humus Dines out: 2 month History of disordered eating: No Skips meals: breakfast/lunch Pace of eating: Medium GI issues: None Constipation chronic (stool softer) BM: every morning or every other Food allergies / intolerances: None Exercise: pedals (1x week); started looking Reasons patient cannot / should not exercise: uses cane SOCIAL HISTORY: Occupation: retired Work schedule: none Lives with: self Support system: daughter, FIRST AID ATTENDANT Who cooks at home/shopping: FIRST AID ATTENDANT and daughter Alcohol: No Smoking: No PAST MEDICAL HISTORY: Medical History[1] ACTIVE PROBLEM LIST: Problem List[2] PAST SURGICAL HISTORY: Surgical History[3] PAST FAMILY HISTORY: Family History[4] ACTIVE MEDICATIONS: Medications Ordered Prior to Encounter[5] ALLERGIES: Current Allergies[6] Nutrition diagnosis: Class IV obesity related to { Undesirable Food Choices, Food/Nutrition relatedknowledge deficit, and Inadequate Physical Activity as evidenced by A BMI 51 Patient-created Goals: Look on utube for upper body and or core chair workouts for beginners 64 oz of water daily - preferably sipping throughout the day -Start with one glass per day -can add herbal tea bags, crystal light, lemon/ [place], orange juice from fruit 70 -90 grams of protein per day from lean protein sources such as chicken, turkey, fish, beans, Lebanese yogurt (Brands: Okios, Ratio; 20-25 g protein), cottage cheese, eggs, tuna 20-30 grams protein each meal; 7-15 grams each snack A minimum of 3 meals per day, consistent eating times Each meal and snack should include protein Protein shakes can replace a meal or snack, look for 20-30 grams of protein, less than 5 grams of added sugar (orgain, Fair-life) Can use bone broth for added protein -Collagen ([place], amazon) can be added to any liquid (oat meal, bone broth, water) -Decrease sugary snacks - replace with tsp of honey if that works for you All available on utube Chino Funes (Insomnia, Diet and Exercise, anxiety, depression) Yoga Nid Vagus Nerve Stimulation or Reset by Winifred Herrera I am affirmations Dr. Robinson Poon Mediations Literature Provided: Build a healthy plate, Healthy snack handout, Protein content , Goal sheets, and RD contact information Interventions: Discuss the importance of eating at least 3 meals/day and the impact on metabolism, Discussed the importance of including protein with each meal and snack, Discussed the plate method and balanced meal, Discussed carbohydrate foods and impact on blood sugar levels, Discussed the importance of drinking enough water, and Discussed the importance of exercise (strength and cardiovascular) Nutrition assessment: Pt is 69 y.o. Female with h/o has no past medical history on file. Obesity class IV Stage of change/Barriers to understanding: Pt is motivated to make changes to diet and lifestyle and No barriers to understanding Concerns regarding considerations for bariatric surgery: No surgery plan for pt a this time Monitoring/Evaluation: Monitor weight and Monitor progress toward nutrition goals RD to see patient for follow-up in 3 months Visit Time: Total time of the visit was spent face to face in medical nutritional therapy was [address] NUTRITION SERVICES [1] No past medical history on file. [2] Patient Active Problem List Diagnosis Depression HTN (hypertension) Hyperlipidemia Morbid obesity (CMS/HCC V24, CMS/HCC V28) Seizures (CMS/HCC V24, CMS/HCC V28) [3] No past surgical history on file. [4] Family History Problem Relation Name Age of Onset Diabetes Father Hypertension Mother Coronary artery disease Brother Diabetes Brother Hypertension Brother Hyperlipidemia Brother Diabetes Sister Hyperlipidemia Sister Coronary artery disease Sister Hypertension Sister [5] Current Outpatient Medications on File Prior to Visit Medication Sig Dispense Refill aspirin 81 mg EC tablet Take 1 tablet (81 mg total) by mouth 1 (one) time each day. docusate sodium (COLACE) 100 mg capsule TAKE 1 CAPSULE BY MOUTH ORALLY DAILY FOR 90 DAYS fluticasone propionate (FLONASE) 50 mcg/actuation nasal spray Administer 1 spray into each nostril 1 (one) time each day. furosemide (LASIX) 20 mg tablet Take 1 tablet (20 mg total) by mouth. HYDROcodone-acetaminophen (VICODIN) 5-300 mg per tablet Take 1 tablet by mouth every 6 hours as needed (pain). lisinopriL (PRINIVIL,ZESTRIL) 10 mg tablet Take 10 mg by mouth daily. lisinopriL (PRINIVIL,ZESTRIL) 20 mg tablet Take 1 tablet (20 mg total) by mouth 1 (one) time each day. phenytoin (DILANTIN) 100 mg ER capsule Take 300 mg by mouth 2 times daily. 200mg at noon rosuvastatin (CRESTOR) 20 mg tablet Take 1 tablet (20 mg total) by mouth 1 (one) time each day. rosuvastatin (CRESTOR) 40 mg tablet Take 1 tablet (40 mg total) by mouth 1 (one) time each day. simvastatin (ZOCOR) 20 mg tablet Take 20 mg by mouth at bedtime. traMADoL (ULTRAM) 50 mg tablet Take 1 tablet (50 mg total) by mouth 3 (three) times a day if needed. for pain Max Daily Amount: 150 mg traZODone (DESYREL) 50 mg tablet Take 1 tablet (50 mg total) by mouth at bedtime as needed. at bedtime for sleep Zepbound 7.5 mg/0.5 mL injection ADMINISTER 7.5 MG UNDER THE SKIN EVERY 7 DAYS 2 mL 0 No current facility-administered medications on file prior to visit. [6] Allergies Allergen Reactions Latex Hives documented in this encounter Plan of Treatment Upcoming Encounters Date Type Department Care Team (Late st Contact Info) Description 06/03/2025 11:00 AM EST Office Visit Bariatric Surgery [address] [address] Renee Flowers PA [address] [place] [address] 07/22/2025 10:30 AM EST Nutrition Bariatric Surgery - [address] [phone] [phone] documented as of this encounter Visit Diagnoses Diagnosis Class 3 severe obesity with serious comorbidity and body mass index (BMI) of 50.0 to 59.9 in adult, unspecified obesity type (CMS/HCC V24, CMS/HCC V28)- Primary documented in this encounter Care Teams Horse Rancher Relationship Specialty Start Date End Date Ely Diaz MD [address] [place] [address] [address] [facility] [place] [address] PCP - General Internal Medicine 05/31/17 documented as of this encounter
--- NOTE | 2025-04-24 10:10 | A.OFFPC_ITS ---
Vital Signs 04/24/25 10:11 Height 5 ft 7 in Weight 311 lb 4 oz BMI 48.7 BP 126/78 Blood Pressure Location Lt brachial Position Sitting Pulse 74 Pulse Source Pulse Oximeter Pulse Oximetry (%) 96 Oxygen Delivery Method Room Air Intake Visit Reasons: Annual Exam Wealth Management Director Required: No Accompanied by: Self / Same As Patient Allergies adhesive tape (ADHESIVE TAPE) Allergy (Intermediate, Verified 04/24/25 10:11) RASH atorvastatin Allergy (Unknown, Verified 04/24/25 10:11) Rash Medication List - Last Reconciled 04/24/25 by Ely Diaz MD albuterol sulfate 90 mcg/actuation 2 puffs PO Q4-6H PRN aspirin 81 mg PO DAILY colchicine 0.6 mg PO DAILY [CPAP 9-20 CM H20 heated and humidified As directed] [DEPENDS 4XL As directed] docusate sodium 100 mg PO DAILY fluticasone propionate 50 mcg/actuation 1 spray intranasal DAILY lisinopril 20 mg PO DAILY multivit with min-folic acid 80 mcg (Centrum Adult 50 Plus) 1 tab PO DAILY phenytoin sodium extended 200 mg (2 x 100 mg) PO BID 30 days [rollator XL As directed] rosuvastatin 40 mg PO DAILY 90 days sennosides-docusate sodium 8.6-50 mg (Senna Plus) 1-2 capsules orally bedtime; tirzepatide (weight loss) (Zepbound) 7.5 mg (0.5 mL) subcut QWEEK tramadol 50 mg PO TID PRN 30 days trazodone 50 mg PO BEDTIME PRN Tobacco use date assessed: 04/24/25 Fall risk assessment: No Falls in past year Last assessed Fall Risk: 04/24/25 Dental Screening Dental Screen Date: 04/24/25 Did you have a dental visit in the last 12 months?: No Did you have a dental problem in the last 6 months where you did not have access to dental care?: No Was dental information given to patient?: No [facility] Medical History (Updated 09/06/24 @ 12:20 by Tayo Booker MD) DJD (degenerative joint disease) Insomnia Asthma Sleep apnea treated with continuous positive airway pressure (CPAP) Obesity History of back pain Depression Cholelithiasis Peripheral vascular disease Peripheral neuropathy Coronary artery disease Carpal tunnel syndrome Hypercholesterolemia GERD (gastroesophageal reflux disease) Pulmonary nodule, left Hypertension Seizures Obstructive sleep apnea Vitamin D deficiency Hx of essential hypertension Surgical History Hx of tubal ligation Hx of colonoscopy History of tonsillectomy History of carpal tunnel release H/O foot surgery History of Stented coronary artery Family History Father Myocardial infarction Mother Medical history unknown Paternal Aunt Breast cancer Maternal Aunt Ovarian cancer Social History Household Members Other:: son Housing: Apartment Are you a primary urgent care nurse practitioner to a significant other at home: No Do you presently have visiting nurse or other home services: No Alcohol intake: never Patient Tobacco Use Status: Never used Tobacco Tobacco use type: Cigarette e-Cigarette/Vaping Use: Never Used Second Hand Smoke Exposure: No service: No Current occupational status: disabled Sexual orientation: Straight/Heterosexual Gender identity: Female Cognitive needs: Yes (candejan walker) Hearing needs: No Vision needs: No Questionnaire Thrive Questionnaire Date Thrive assessed: 11/11/24 I am a: Patient What is your living situation today?: I have a steady place to live Within the past 12 months, did the food you bought not last and you didn't have the money to get more?: Never true Within the past 12 months, did you worry whether your food would run out before you got money to buy more?: Never true Do you have trouble paying for medicines?: No Do you have trouble getting transportation to medical appointments?: No Do you have trouble paying your heating and electricity bill?: No Do you have trouble taking care of your child, family member or friend?: No Do you have trouble with day-to-day activities such as bathing, preparing meals, shopping, managing finances, etc.?: No Are you currently unemployed and looking for a job?: No Are you interested in more education?: No Please select the resources that you would like help with: None Currently or been in a relationship where the following occur: No concerns reported THRIVE Score: 0 AUDIT C Alcohol Use Questionnaire (AUDIT-C) 1. How often do you have a drink containing alcohol?: Never 3. How often do you have six or more drinks on one occasion?: Never Total Score: 0 JUAN-7 AMB Questionnaire JUAN-7 Date JUAN - 7 assessed: 11/11/24 Source: Developed by Drs. Heraclio Nesbitt, Skylar Latham, Abdifatah Echevarria and colleagues, with an educational nghia from [employer]. Review of Systems Const Denies poor appetite and Denies weakness Eyes Denies no additional complaints ENT Reports Normal hearing present, Denies dizziness, Denies nasal congestion, Denies tinnitus and Denies sore throat Card Denies chest pain, Denies syncope, Denies rapid heart rate and Denies dyspnea Resp Denies cough and Denies dyspnea GI Denies change in stool character, Reports constipation, Denies diarrhea, Denies nausea and Denies vomiting Denies urinary frequency, Denies difficulty voiding and Denies dysuria Neuro Reports Normal hearing present, Denies confusion, Denies dizziness, Denies syncope and Denies weakness Psych Denies confusion Physical exam (Primary Care) Vital Signs: Last Vital Signs Pulse 74 04/24/25 10:11 BP 126/78 04/24/25 10:11 Pulse Ox 96 04/24/25 10:11 Oxygen Delivery Method Room Air 04/24/25 10:11 BMI result Body Mass Index 48.7 Tobacco/Smoking Status: Tobacco use Status Tobacco use date assessed 04/24/25 04/24/25 10:13 Patient Tobacco Use Status Never used Tobacco 04/24/25 10:13 Tobacco use type Cigarette 04/24/25 10:13 e-Cigarette/Vaping Use Never Used 04/24/25 10:13 Thrive Assessment: Date of Thrive Assessment Date Thrive assessed 11/11/24 04/24/25 10:13 Currently or been in a relationship where the following occur: No concerns reported Const General: No confusion Orientation/consciousness: No confusion HENMT Head: Yes normocephalic Ears: external ears normal and TM's normal bilaterally Face and sinus: Yes normal facial exam Mouth: moist mucous membranes Throat: Yes tonsils normal Eyes Conjunctivae: conjunctivae normal Pupils: Equal, round and reactive pupils present and Pupil accommodation reflex normal Direct Ophthalmoscopy: normal light reflex Neck Neck: No lymphadenopathy Thyroid: Thyroid normal Chest Chest palpation & inspection: normal inspection of the chest Resp Effort & Inspection: normal respiratory effort and no audible wheezes Auscultation: clear to auscultation bilaterally, no crackles, no wheezes and lung sounds not diminished Cardio Rate: regular rate Rhythm: regular rhythm Peripheral pulses: radial pulses present and dorsalis pedis present GI Palpation (GI): no masses Auscultation: normal bowel sounds and normoactive bowel sounds Rectal Exam - Female: deferred Skin General skin exam: no rashes or lesions noted Rashes: no rashes Neuro General: No confusion Cranial nerves: Yes Equal, round and reactive pupils present and Yes Normal hearing present Cognition (Neuro): normal cognition Gait exam (Neuro): Normal gait present Motor exam (neuro): 5/5 motor strength present throughout Deep tendon reflexes (DTR's): Right brachioradialis reflex intensity grade: 2+, Left brachioradialis reflex intensity grade: 2+, Right patellar reflex intensity grade: 2+ and Left patellar reflex intensity grade: 2+ Extrem General: No edema Coding Level of Care Code Est Pt Prev Care >65y(13275) Diagnoses Annual physical exam Z00.00 Essential hypertension I10 Hypertension type: essential hypertension Coronary artery disease involving [place] coronary artery of [place] heart without angina pectoris I25.10 Associated angina: without angina Coronary Disease-Associated Artery/Lesion type: [place] artery [place] vs. transplanted heart: [place] heart Hypercholesterolemia E78.00 Morbid obesity E66.01 Gastroesophageal reflux disease without esophagitis K21.9 Esophagitis presence: without esophagitis Fatty liver K76.0 Breast cancer screening by mammogram Z12.31 Seizures R56.9 Assessment & Plan Assessment & Plan (1) Annual physical exam: Code(s): Z00.00 - Encounter for general adult medical examination without abnormal findings Category: Medical (2) Hypertension: Code(s): I10 - Essential (primary) hypertension Category: Medical Qualifiers: Hypertension type: essential hypertension Qualified Code(s): I10 - Essential (primary) hypertension (3) Coronary artery disease: Comment: STEMI 08/2016 BELINDA to RPDA, Sees Dr Dougherty- [facility] 02/2020 EF 60-65% moderate diastolic dysfunction Code(s): I25.10 - Atherosclerotic heart disease of [place] coronary artery without angina pectoris Category: Medical Qualifiers: Associated angina: without angina Coronary Disease-Associated Artery/[place] type: [place] artery [place] vs. transplanted heart: [place] heart Qualified Code(s): I25.10 - Atherosclerotic heart disease of [place] coronary artery without angina pectoris (4) Hypercholesterolemia: Code(s): E78.00 - Pure hypercholesterolemia, unspecified Category: Medical (5) Morbid obesity: Code(s): E66.01 - Morbid (severe) obesity due to excess calories Category: Medical (6) GERD (gastroesophageal reflux disease): Code(s): K21.9 - Gastro-esophageal reflux disease without esophagitis Category: Medical Qualifiers: Esophagitis presence: without esophagitis Qualified Code(s): K21.9 - Gastro-esophageal reflux disease without esophagitis (7) Fatty liver: Code(s): K76.0 - Fatty (change of) liver, not elsewhere classified Category: Medical (8) Breast cancer screening by mammogram: Code(s): Z12.31 - Encounter for screening mammogram for malignant neoplasm of breast Category: Medical (9) Seizures: Comment: Last seizure 2018 Code(s): R56.9 - Unspecified convulsions Category: Medical Plan History of Present Illness The patient is a 69-year-old female presenting for a physical examination. She has a history of obstructive sleep apnea, which is currently not well- managed due to issues with her CPAP machine causing discomfort and cold sensations, leading to non-compliance. A referral to sleep medicine for a potential mask change and further evaluation has been discussed. The patient has hypertension, which is currently well-controlled with lisinopril 20 mg daily. She also has a history of gastroesophageal reflux disease (GERD), hypercholesterolemia, and coronary artery disease. Her LDL cholesterol is currently at 88 mg/dL, and there is a plan to add ezetimibe to her regimen to achieve a target LDL of less than 70 mg/dL. The patient has a seizure disorder managed with Dilantin, and she reports no recent seizures. She has peripheral vascular disease and depression, both of which are being managed with current medications. The patient has hepatic steatosis with liver function tests showing elevated liver enzymes, which is consistent with previous results. She has osteoarthritis of the knee, which causes pain and limits her mobility, and she is currently using tramadol for pain management. The patient has asthma and reports dyspnea but does not currently have an inhaler. A prescription for an albuterol inhaler has been sent to her pharmacy. She has cataracts and is awaiting new glasses to assess if further intervention is needed. Preventative care measures include a scheduled mammogram in May and a flu shot administered during the visit. Health Maintenance - Mammogram scheduled for May - Flu shot administered during the visit - Referral to sleep medicine for CPAP management Social History - Denies alcohol consumption and smoking history - Reports difficulty with mobility due to knee pain Review of Systems - General: Denies fever, nausea, or vomiting - Respiratory: Reports dyspnea, denies cough or wheezing - Cardiovascular: Denies chest pain or syncope - Neurological: Denies recent seizures or loss of consciousness - Gastrointestinal: Denies abdominal pain or changes in bowel habits - Musculoskeletal: Reports knee pain - Genitourinary: Reports nocturia, denies dysuria - Ophthalmologic: Reports cataracts, awaiting new glasses Physical Exam General: Cooperative, healthy appearing, comfortable, no acute distress and well developed Orientation: Patient oriented x3 Limitations: No limitations Head: Normal to inspection Ears: Hearing grossly normal bilaterally Nose: Normal external nose present Face and sinus: Normal facial exam Eyes: Appearance normal, both eyes and all related structures Neck: Normal visual inspection and Yes full ROM Respiratory: Normal respiratory effort and able to speak in complete sentences. Clear to auscultation bilaterally Cardiovascular: Regular rate and rhythm. Normal S1 and S2 GI: Normal to inspection. Soft to palpation and nontender Skin: No rashes or lesions noted Neuro: Patient oriented x3 Extremities: Normal to inspection Results - Labs: Normal blood count, normal electrolytes, normal renal function, normal blood sugar, hemoglobin A1c 5.6, elevated liver enzymes at 45, LDL cholesterol 88 mg/dL Plan Patient was informed and verbally consented to the use of an ambient scribe for clinic note documentation during this visit. 1. Obstructive Sleep Apnea The patient is experiencing issues with her CPAP machine, leading to non- compliance due to discomfort and cold sensations. A referral to sleep medicine has been made to evaluate the possibility of a mask change and to improve compliance. 2. Hypercholesterolemia The patient's LDL cholesterol is currently at 88 mg/dL, which is above the target for patients with coronary artery disease. Ezetimibe will be added to her current regimen of rosuvastatin to achieve an LDL target of less than 70 mg/dL. A follow-up cholesterol test is planned in three months to assess the effectiveness of the treatment adjustment. 3. Asthma The patient reports dyspnea and does not currently have an inhaler. A prescription for an albuterol inhaler has been sent to her pharmacy to manage her symptoms. 4. Preventative Care A mammogram is scheduled for May as part of her routine preventative care. A flu shot was administered during the visit to protect against seasonal influenza. Discussion Notes During the visit, we discussed the patient's obstructive sleep apnea and the issues with her CPAP machine, leading to a referral to sleep medicine for further evaluation and potential mask change. We also addressed her hyperch olesterolemia, deciding to add ezetimibe to her regimen to achieve a target LDL of less than 70 mg/dL, with a follow-up cholesterol test planned in three months. The patient was informed about the importance of compliance with her asthma management, and a prescription for an albuterol inhaler was provided. Preventative care measures were reinforced, including scheduling a mammogram for May and administering a flu shot during the visit. Patient Instructions - Use the albuterol inhaler as prescribed to manage asthma symptoms. - Follow up with sleep medicine for CPAP evaluation and potential mask change. - Continue taking rosuvastatin and start ezetimibe as prescribed to manage cholesterol levels. - Schedule and attend the mammogram appointment in May. - Maintain a healthy diet and exercise routine to support overall health. Orders: Orders Comprehensive Met. Panel Today E78.00 - Pure hypercholesterolemia, unspecified MM screening mammo BI Today E78.00 - Pure hypercholesterolemia, unspecified, Z12.31 - Encounter for screening mammogram for malignant neoplasm of breast Lipid Panel Today E78.00 - Pure hypercholesterolemia, unspecified Hemoglobin A1c Today E78.00 - Pure hypercholesterolemia, unspecified Referrals Sleep Medicine Referral G47.33 - Obstructive sleep apnea (adult) (pediatric) Medications: New docusate sodium 100 mg PO DAILY 90 caps 1RF G47.33 - Obstructive sleep apnea (adult) (pediatric) ezetimibe (Zetia) 10 mg PO DAILY 90 tabs 2RF E78.00 - Pure hypercholesterolemia, unspecified Changed From tirzepatide (weight loss) (Zepbound) 7.5 mg (0.5 mL) subcut QWEEK 2 mL 4RF E66.01 - Morbid (severe) obesity due to excess calories To tirzepatide (weight loss) 10 mg (0.5 mL) subcut QWEEK 2 mL 4RF E66.01 - Morbid (severe) obesity due to excess calories Refilled albuterol sulfate 90 mcg/actuation 2 puffs PO Q4-6H PRN 8.5 grams 0RF for wheezing G47.33 - Obstructive sleep apnea (adult) (pediatric)
[2025-04-24 10:11] VITALS: BP 126/78; PULSE 74; O2SAT 96; BMI 48.7
--- OUTSIDE RECORDS SUMMARY | 2025-04-24 11:46 | XMS_ITS | Clinical Summary ---
Author Organization [facility] Address [address] [place] [address] Care Team Providers Care Artificial Glass Eye Maker Name Role Phone Ely Diaz MD Primary Care Provider [phone] Allergies No known active allergies Medications Aspirin [...] es 65 and older) 2021 Influenza Vaccine 01/31/2025 09/11/2016 COVID-19 Vaccine ( - 2023-2 5 season) 2025 RSV Vaccine 50 years and old er and Patients (1 - 1-dose 75+ series) 11/01/2031 Hepatitis B Vaccines Aged Out No long er eligible based on patient's age to complete this topic Insurance [place] [id number] MEDICAID OUT OF STATE [facility] MEDICARE PART A & B [facility] T[employer] (AUTO/LIABILITY) Care Teams Artificial Glass Eye Maker Relationship Specialty Start Date End Date Ely Diaz MD [address] [place] [address] [place] [address] PCP - General Internal Medicine 04/14/19
--- OUTSIDE RECORDS SUMMARY | 2025-04-24 11:46 | XMS_ITS | Clinical Summary ---
Author Organization [address] [facility] Address [address] [place] [address] Phone Care Team Providers Care Meter Inspector Name Role Phone Ely Rosales MD Primary Care Provider [phone] Allergies Active Allergy Reactions Criticality Noted Date [...] THE SKIN EVERY 7 DAYS 2 mL 5 Active Active Problems Problem Noted Date Diagnosed Date Morbid obesity ([facility] V24, [facility] V28) 2013 Overview (07/29/2024): BMI 48.45 on 01/25/13. Depression 09/18/2012 Overview (07/29/2024): Sees therapist not on meds HTN (hypertension) 09/18/2012 Overview (07/29/2024): Previous pcp dr ROSALES Hyperlipidemia 09/18/2012 Seizures ([facility] V24, [facility] V28) 09/18/2012 Encounters Date Type Department Care Team Description 04/23/2025 10:00 AM EDT Nutrition Bariatric Surgery - [address] [phone] Priya Garrison, MEL Class 3 severe obesity with serious comorbidity and body mass index (BMI) of 50.0 to 59.9 in adult, unspecified obesity type ([facility] V24, [facility] V28) (Primary Dx) 01/22/2025 9:30 AM EDT Office Visit Bariatric Surgery [address] [address] Renee Flowers PA Morbid obesity ([facility] V24, [facility] V28) (Primary Dx) from Last 3 Months [...] (315 lb) 04/23/2025 10:15 AM EDT Height 166.4 cm (5' 5.5 ) 01/22/2025 9:28 AM EDT Body Mass Index 51.62 01/22/2025 9:28 AM EDT Plan of Treatment Upcoming Encounters Date Type Department Care Team (Late st Contact Info) Description 06/03/2025 11:00 AM EST Office Visit Bariatric Surgery - [place] [address] [address] Renee Flowers PA [address] [place] [phone] 07/22/2025 10:30 AM EST Nutrition Bariatric Surgery - [place] [address] [phone] Priya Garrison, MEL [address] [phone] Health Maintenance Due Date Last Done Comments Breast Cancer Screening 1955 Colorectal Cancer Screening: Colonoscopy 1955 RSV Immunization Adult Patients (1 - Risk 50-74 years 1-dose series) 2006 Zoster Vaccines (1 of 2) 2006 Pneumococcal Vaccine: 50+ Years (2 of 2 - PCV) 02/09/2022 02/09/2021, 09/11/2016 Cholesterol Screening (Lipid Panel) 06/01/2022 Falls Risk Assessment 06/01/2022 Hepatitis C [...] Insurance MEDICAID - [place] MEDICARE Care Teams Meter Inspector Relationship Specialty Start Date End Date Ely Rosales MD [address] [place] [address] Dr [address] [facility] [place] [address] PCP - General Internal Medicine 05/31/17
== END 2025-04-24 11:21 | disposition home or self-care (01) ==
LOC: HO.HMCH 10:03
PROVIDERS: PCP Internal Medicine; Visit Provider Internal Medicine
DX: Z00.00 Encounter for general adult medical examination without abnormal findings (principal); E66.01 Morbid (severe) obesity due to excess calories; R56.9 Unspecified convulsions; Z68.42 Body mass index [BMI] 45.0-49.9, adult; I10 Essential (primary) hypertension; I25.10 Atherosclerotic heart disease of native coronary artery without angina pectoris; E78.00 Pure hypercholesterolemia, unspecified; K21.9 Gastro-esophageal reflux disease without esophagitis; K76.0 Fatty (change of) liver, not elsewhere classified; Z12.31 Encounter for screening mammogram for malignant neoplasm of breast

== ENCOUNTER → 2025-04-24 10:02 | Outpatient (BNVA) | payer MEDICARE, MEDICAID, SELFPAY | PROVIDERS: PCP Internal Medicine; Visit Provider Internal Medicine | DX: Z00.00 Encounter for general adult medical examination without abnormal findings (principal); I10 Essential (primary) hypertension; I25.10 Atherosclerotic heart disease of native coronary artery without angina pectoris; E78.00 Pure hypercholesterolemia, unspecified; E66.01 Morbid (severe) obesity due to excess calories; K21.9 Gastro-esophageal reflux disease without esophagitis; K76.0 Fatty (change of) liver, not elsewhere classified; R56.9 Unspecified convulsions; G47.33 Obstructive sleep apnea (adult) (pediatric); Z99.89 Dependence on other enabling machines and devices; J45.909 Unspecified asthma, uncomplicated; Z68.42 Body mass index [BMI] 45.0-49.9, adult | CPT/HCPCS: 99397 ==

== ENCOUNTER 2025-05-27 09:37 | Outpatient (AMB) | payer MEDICARE, MEDICAID, SELFPAY ==
--- OUTSIDE RECORDS SUMMARY | 2014-07-01 06:54 | XMS_ITS | Continuity of Care Document ---
Author Organization [facility] Address [address] [address] Phone Care Team Providers Care Dandy Tender Name Role Phone Shayla Barrera MD Unavailable Unavailable Allergies, Adverse Reactions, Alerts Substance Reaction Status Criticality No Known allergies Medications Medication Instructions Dosage Effective Dates (start - stop) Status Comments lidocaine 5 % (700 mg/patch) adhesive patch apply 1 patch by transdermal route every day Apply to painful area on back. Wear for 12 hours per day- on in AM, off in PM. 1 patch - Active lisinopril 10 mg tablet take 1 tablet by oral route every day 10 MG - Active Pneumovax 23 25 mcg/0.5 mL injection IM x1 unless allergic or has had in past 10 years - Active Boostrix 2.5 Lf unit-8 mcg-5 Lf/0.5 mL intramuscular suspension IM x 1 unless allergic or has had in past 10 years - Active Dilantin Kapseal 100 mg capsule take 3 capsule by oral route in AM, 2 capsules at noon and 3 capsules at PM. Need to check if ER or regular tabs - Active simvastatin 20 mg tablet take 1 tablet by oral route every day in the evening 20 MG - Active Vitamin D2 50,000 unit capsule PCP gave 6 pills. No refills - Active Advance Directives Directive Yes / No Effective Date File Name No Information Encounters Encounter Description Practice Location Reason(s) For Visit Diagnoses Date Provider [facility], [address] [address], [place], [place], [id number], [place] tel:[phone] [place] No Information Jun-3 0-201 4 Bruce Mcguire. [address], [place], [place], [id number]. tel:[phone] [facility], [address], [place], [place], [id number], [place] tel:[phone] [place] Back pain f/u (chief complaint) LumbagoEpilepsy, unspecified, without mention of intractable epilepsy 4 Bruce Mcguire. [address], [place], [place], [id number]. tel:[phone] [facility], [address] [facility] [address] [place], [place], [id number], [place] tel:[phone] [place] LBP f/u (chief complaint) Lumbago 4 No Information [facility], [address] [facility] [address] [facility], [place], [place], [id number], [place] tel:[phone] [place] No Information 4 No Information [facility], [address], [place], [place], [id number], [place] tel:[phone] [place] Lumbago 4 Bruce Mcguire. [address], [place], [place], [id number]. tel:[phone] [facility], [address], [place], [place], [id number], [place] tel:[phone] [place] back pain (chief complaint)m edication compliance (chief complaint) LumbagoMemory lossOther and unspecified hyperlipidemiaEpilepsy , unspecified, without mention of intractable epilepsy 4 Bruce Mcguire. [address], [place], [place], [id number]. tel:[phone] [facility], [address], [place], [place], [id number], [place] tel:[phone] [place] No Information 4 Bruce Mcguire. [address], [place], [place], [id number]. tel:[phone] [facility], [address] [facility] [address] [place] [address], [id number], [place] tel:[phone] [place] Routine Medical Exam Dec-0 4 Bruce Mcguire. [address], [place], [place], [id number]. tel:[phone] [facility], [facility], [place], [place], [id number], [place] tel:[phone] [place] No Information Dec- 4 Despres Janay. [address] [place], [address]. tel:[phone] [facility], [address] [facility] [address] [facility], [place], [place], [id number], [place] tel:[phone] [place] No Information 4 No Information [facility], [facility], [place], [place], [id number], [place] tel:[phone] [place] No Information 4 Bruce Mcguire. [address], [place], [place], [id number]. tel:[phone] [facility], [address] [facility] [address] [facility], [place], [place], [id number], [place] tel:[phone] [place] post enrollment evaluation (chief complaint)c hronic conditions (chief complaint) Urinary incontinence, unspecifiedEpilepsy, unspecified, without mention of intractable epilepsyOrganic insomnia, unspecifiedUnspecified essential hypertensionOther and unspecified hyperlipidemiaUnspecif ied sleep apneaChronic airway obstruction, not elsewhere classifiedMorbid obesityMemory lossSpinal stenosis of lumbar region without neurogenic claudicationLumbagoUns pecified chronic liver disease without mention of alcoholSolitary pulmonary noduleUnspecified idiopathic peripheral neuropathyAlkaline phosphatase elevatedAbnormal exam of musculoskeletal system Dec-0 4 Bruce Mcguire. [address], [place], [place], [id number]. tel:[phone] [facility], [address] [facility] [address] [facility], [place], [place], [id number], tel:[phone] [place] Routine Medical ExamRoutine Medical ExamEpilepsy, unspecified, without mention of intractable epilepsyNoninfectious GastroenteritisHyperte nsion, UnspecifiedRespiratory InsufficiencyOther and unspecified hyperlipidemiaUrinary incontinence, unspecifiedSleep ApneaCOPDOsteoarthrosi s, unspecified whether generalized or localized, involving unspecified siteObesity, MorbidInsomnia due to medical condition classified elsewhereMononeuritis of unspecified siteMemory lossAbnormal Cardiac EnzymesOther chronic nonalcoholic liver diseaseSpinal stenosis of lumbar regionSOLITARY PULMONRY NODULEDepression Bruce Mcguire. [facility] [address], [place], [place], [id number]. tel:[phone] [facility], [facility], [place], [place], [id number], tel:[phone] [place] Intake visit (chief complaint) No Information No Information Family History Family Member Type Diagnosis Age At Onset Mother Problem (finding) Heart disease Mother Problem (finding) raised blood lipids Brother Problem (finding) seizure disorder Brother Problem (finding) hypertension Brother Problem (finding) raised blood lipids Father Problem (finding) diabetes melli tus in first degree relative Brother Problem (finding) asthma Mother Problem (finding) hypertension Immunizations Vaccine Date Status Comments Td, preservative free, (7 yrs and older) pending Source: New Immunization Record Pneumo (2 yrs or older)(PPV) pending Source: New Immunization Record Payers Payer name Insurance type Covered republican ID Authorshekhara ticlaudio(s) [facility] 16 [id number] 1 Social History Type Description Quantity Date Captured Comments Sex Female Smoking Status No Information Chief Complaint And Reason For Visit No Information Plan Of Treatment Date Type Action Status Goal Influenza vaccine. Due on due Goal Tdap. Due on due Goal Eye Exam. Due on due Goal Depression screening. Due on due Goal Influenza vaccine. Due on due Goal Eye Exam. Due on due Goal Tdap. Due on due Goal Depression screening. Due on due Goal Influenza vaccine. Due on due Goal Eye Exam. Due on due Goal Depression screening. Due on due Goal Tdap. Due on due Goal Tdap. Due on due Goal Influenza vaccine. Due on due Goal Depression screening. Due on due Goal Eye Exam. Due on due Goal Influenza vaccine. Due on due Goal Eye Exam. Due on due Goal Depression screening. Due on due Goal Tdap. Due on due Goal Influenza vaccine. Due on due Goal Tdap. Due on due Goal Depression screening. Due on due Goal Eye Exam. Due on due Goal Tdap. Due on due Goal Eye Exam. Due on due Goal Influenza vaccine. Due on due Goal Depression screening. Due on due Goal Influenza vaccine. Due on due Goal FOBT. Due on due Goal Eye Exam. Due on due Goal Depression screening. Due on due Goal Tdap. Due on due Goal Influenza vaccine. Due on due Goal FOBT. Due on due Goal Depression screening. Due on due Goal Eye Exam. Due on due Goal Tdap. Due on due Referral Ordered: Referrals: Dentistry. Evaluate and treat ordered Referral Ordered: referred to OT UI (related to Urinary incontinence, unspecified) ordered Referral Ordered: referred to PT back pain (related to Urinary incontinence, unspecified) ordered Unknown Immunization Td, preservative free, (7 yr s and older) ordered Unknown Immunization Pneumo (2 yrs or older)(PPV) ordered History Of Present Illness Encounter Date Complaint History Of Prese nt Illness Back pain f/u Pt seen for f/u back pain. States lidoderm patch helped a little. Pain cont 7-02/09. Still working with rehab. States she took her dtr's husbands pain medication and was pain free for three days. Did feel a little spacy after taking it but would like it prescribed. Doesn't know name but will check and let us know. Reviewed importance of not taking other people's medication b/c of unknown effects or interactions. Still forgetting to take her midday dose of dilantin. Taking her am and pm dose regularly. Recommending setting her phone to alarm daily at the time she needs it. Pt states she will have her brother help her with that and start today or tomorrow. LBP f/u Pt states she co nt with LBP, same pain as before, mid lumbar radiating to R thigh. Has tried heat and cream with some relief at beginning but now back and sometimes 10/10 with walking and sometimes sitting. Would like to be given something for pain. Requesting ibuprofen. medication compliance Reviewed h igh lipids, low dilantin level and pt reports probably due to missed meds. Misses mid day pills frequently and nightime meds sometimes back pain Additional infor mation: lumbar, center w ?radiation to post thigh. Relieved w sitting, lying. Worse w walking. chronic conditions post enrollment evaluation Pt ashlyn arrieta feels well overall. Continues to be worried about her hands tingling intermittently. Happens randomly, not worse at night and has to shake them or rub them together to make them feel better. Also concerned about feet swelling. Reports has been happening for awhile and feels may be getting worse. Notes has bilateral side bumps is concerned about and that no one has ever been able to tell her what they are. Not painful, don't bother her. No recent change in size, redness or warmth Intake visit 58 year old bee valadez. Lives on first floor apartment. Lives with . No falls in last 90 days but does have history of frequent falls with seizure disorder. Forgetful about taking medications and , who is home all the time, has to remind her to take them every day. Pt takes them out of med town planner. Sometimes forgets what she is saying and has to stop and think. Pt cooks frequently (gas stove) and has burnt food in past. Most recent couple days ago. May occur once/twice a month but pt unable to specify. always checks to make sure stove is off. No drug or food allergies. Admitted to the hospital for colitis in August this year (new dx). No other specialists other than eye doctor. Received glasses last year. Top dentures don't fit well and does not wear bottom dentures because they hurt. No problems chewing or swallowing. Incontinent of urine. Urge ans stress incontinence (dribbles). No skin breakdown. Chronic back and arm pain. Wakes up in pain. Drinks one beer... Instructions Date Instruction Additional Infor rhona Will try setting her phone (with brothers help) to remind her to take midday dilantin. F/u [address] Barrera for possible dilantin level if better compliance. Related to Epilepsy, unspecified, without mention of intractable epilepsy Discussed addition o f tramadol but pt wants to wait until she brings in name of medication she took (MARYJO's) to see if it can be prescribed since it helped. Related to Lumbago Trial of lidoderm (p er Dr Barrera's last note if pain continued). Pt agrees to try. F/u with Dr Kline 2 weeks. Related to Lumbago Assessments Type Assessment Date No Information
--- NOTE | 2025-05-27 09:49 | A.OFFVIS_ITS ---
Vital Signs 05/27/25 09:50 Height 5 ft 7 in Weight 311 lb 2 oz BMI 48.7 BP 128/84 Blood Pressure Location Rt brachial Position Sitting Pulse 74 Pulse Source Pulse Oximeter Pulse Oximetry (%) 96 Oxygen Delivery Method Room Air Intake Visit Reasons: INP-MAIK Intake Note: Patient presents [facility] [employer] MAIK. She has a history of obstructive sleep apnea, which is currently not well-managed due to issues with her CPAP machine causing discomfort and cold sensations, leading to non-compliance. [facility]. Has appointment for new mask coming up. Accompanied by: Daughter Allergies adhesive tape (ADHESIVE TAPE) Allergy (Intermediate, Verified 05/27/25 09:54) RASH atorvastatin Allergy (Unknown, Verified 05/27/25 09:54) Rash HPI Comments Details: 69 year old female with seizure disorder is referred to us for an evaluation of MAIK by her PCP. Her last seizure was one year ago and she is well managed on 200mg of Phenytoin PO BID, managed by Dr. Harden. She has been snoring, gasping, and choking for air as this wakes her up multiple times a night. She was on cpap 3 years ago and the mask was blowing cold air, she was having morning headaches. She discontinued using it and is trying to establish care now. She has an appt for a mask fitting Air Touch Fit 20, however needs to be evaluated for his current symptoms of MAIK. She goes to bed at 1am and wakes up at 8am. She naps all day on and off on the couch due to chronic fatigue. She continues to have morning headaches 1-2x a week, lasting for 1 hour with blurry vision, sensitivity to light and sounds, with ethmoid sinus pain 7/10 around her eyes bilaterally, she takes a tylenol or ibuprofen and it resolves. She has balance and gait difficulties uses her cane for outings and rolling walker at home to ambulate. Has fallen in her bathroom tub 2 months ago due to instability, sustained bruising on legs, back and bottom, however did not hit her head and did not go to the ED. She has gout in her l. ankle, RLS with bilateral paresthesias, cramps, which wake her up at night and she moves her legs all night long. Memory is poor, will forget many tasks such as taking medications, appts, and word processing and recall is slow. Does not drive. Her mood is low she has depression due to the loss of her spouse, sleep managed with tramadol and grief counseling 2x a month. BMI is elevated she is on zepbound for 4months now, trying to eat well and drinks green tea, avoid sugar, stays well hydrated. Denies parasomnias, acid reflux, abnormal movements in sleep, vertigo and dizziness. PFSH Medical History DJD (degenerative joint disease) Insomnia Asthma Sleep apnea treated with continuous positive airway pressure (CPAP) Obesity History of back pain Depression Cholelithiasis Peripheral vascular disease Peripheral neuropathy Coronary artery disease Carpal tunnel syndrome Hypercholesterolemia GERD (gastroesophageal reflux disease) Pulmonary nodule, left Hypertension Seizures Obstructive sleep apnea Vitamin D deficiency Hx of essential hypertension Surgical History Hx of tubal ligation Hx of colonoscopy History of tonsillectomy History of carpal tunnel release H/O foot surgery History of Stented coronary artery Family History Father Myocardial infarction Mother Medical history unknown Paternal Aunt Breast cancer Maternal Aunt Ovarian cancer Social History Household Members Other:: son Housing: Apartment Are you a primary client care consultant to a significant other at home: No Do you presently have visiting nurse or other home services: No Alcohol intake: never Patient Tobacco Use Status: Never used Tobacco Tobacco use type: Cigarette e-Cigarette/Vaping Use: Never Used Second Hand Smoke Exposure: No service: No Current occupational status: disabled Sexual orientation: Straight/Heterosexual Gender identity: Female Cognitive needs: Yes (cane, walker) Hearing needs: No Vision needs: No Physical Exam Vital Signs: Last Vital Signs Pulse 74 05/27/25 09:50 BP 128/84 05/27/25 09:50 Pulse Ox 96 05/27/25 09:50 Oxygen Delivery Method Room Air 05/27/25 09:50 BMI result Body Mass Index 48.7 Const General: cooperative, comfortable and no acute distress Nutritional Appearance: obese Orientation/consciousness: patient oriented x3 Limitations: ambulation with cane and ambulation with walker HEENT Face and sinus: Yes face symmetric Teeth and gingiva: other (mallampti score is 3) Eyes Pupils: Equal, round and reactive pupils present Neck Neck: Yes full ROM Resp Effort & Inspection: normal respiratory effort and able to speak in complete sentences Neuro Other: ROM limited neck L>R General: patient oriented x3 Cranial nerves: Yes Equal, round and reactive pupils present, Yes Normal facial strength present, Yes Midline tongue present, Yes Ability to bilaterally rotate head present and Yes Ability to bilaterally elevate shoulders present Cognition (Neuro): normal cognition Motor exam (neuro): 5/5 motor strength present throughout and Normal motor muscle tone present throughout Psych Appearance: grossly normal Affect: Anxious affect present Thought process: Normal thought process present Thought content: Normal thought content present Assessment & Plan Assessment & Plan (1) Excessive daytime sleepiness: Code(s): G47.19 - Other hypersomnia Category: Medical (2) Loud snoring: Code(s): R06.83 - Snoring Category: Medical (3) Seizures: Comment: Last seizure 2018 Code(s): R56.9 - Unspecified convulsions Category: Medical Plan HST to r/o maik RLS will monitor Seizure disorder is managed with Phenytoin 200mg po BID, Dr. Whittington. Depression/ Anxiety managed with BHN. Labs reviewed Orders: Orders RT home sleep study Today G47.19 - Other hypersomnia Patient Instructions: Sleep Hygiene provided: set a scheduled bedtime and wake time to help regulate the circadian rhythm and balance the release of pituitary hormones. Sleep in a dark room, temperatures below 68 degrees, and no devices n bed. Limit caffeinated products 6 hours prior to bed, and limit fluids 2-4 hours prior to bed. Gentle night yoga, diffusing essential oils, and playing soft music can be relaxing. Coding Level of Care Code New Pt Level 4 (46323) Diagnoses Excessive daytime sleepiness G47.19 Loud snoring R06.83 Seizures R56.9 Sleep Questionnaire Difficulty falling asleep: Yes Difficulty staying asleep?: Yes Number of arousals: 2 Snoring: Yes Witnessed apneas: No Gasping arousals: Yes Nocturia: No GERD: No Vivid dreams: No Acting out dreams: No Abnormal behavior in sleep: No Abnormal movements in sleep: No Morning headaches: Yes Excessive daytime sleepiness: Yes Daytime naps: Yes Restless legs: Yes Hallucinations: No Sleep paralysis: No Drop attacks: No Sleep Study: Yes CPAP: Yes
[2025-05-27 09:50] VITALS: BP 128/84; PULSE 74; O2SAT 96; BMI 48.7
--- OUTSIDE RECORDS SUMMARY | 2025-05-27 11:09 | XMS_ITS | Clinical Summary ---
Author Organization [address] [facility] Address [address] [place] [address] Phone Care Team Providers Care District Fire Chief Name Role Phone Ely Rosales MD Primary Care Provider [phone] Allergies Active Allergy Reactions Criticality Noted Date [...] Problem Noted Date Diagnosed Date Morbid obesity ([facility] V24, [facility] V28) 2013 Overview (07/29/2024): BMI 48.45 on 01/25/13. Depression 09/18/2012 Overview (07/29/2024): Sees therapist not on meds HTN (hypertension) 09/18/2012 Overview (07/29/2024): Previous pcp dr ROSALES Hyperlipidemia 09/18/2012 Seizures ([facility] V24, [facility] V28) 09/18/2012 Encounters Date Type Department Care Team Description 04/23/2025 10:00 AM EDT Nutrition Bariatric Surgery - [address] [address] Priya Garrison, MEL Class 3 severe obesity with serious comorbidity and body mass index (BMI) of 50.0 to 59.9 in adult, unspecified obesity type ([facility] V24, [facility] V28) (Primary Dx) from Last 3 [...] AM EST Office Visit Bariatric Surgery - [address] [address] Renee Flowers PA [address] [place] [id number] 07/22/2025 10:30 AM EST Nutrition Bariatric Surgery - [place] [address] [address] Priya Garrison, MEL [address] [address] Health Maintenance Due Date Last Done Comments [...] 2025 09/14/2021, 10/06/2020 Influenza Vaccine (#1) 2025 2, 04/12/2017, 09/11/2016 [...] Insurance MEDICAID - [place] MEDICARE Care Teams District Fire Chief Relationship Specialty Start Date End Date Ely Rosales MD [address] [place] [address] [address] [facility] [place] [address] PCP - General Internal Medicine 05/31/17
--- OUTSIDE RECORDS SUMMARY | 2025-05-27 11:09 | XMS_ITS | Clinical Summary ---
Author Organization [facility] Address [address] [place] [address] Care Team Providers Care Senior Consumer Insights Consultant Name Role Phone Ely Diaz MD Primary Care Provider [phone] Allergies No known active allergies Medications Aspirin [...] Insurance [place] [id number] MEDICAID OUT OF STATE [facility] MEDICARE PART A & B [facility] TPL (AUTO/LIABILITY) Care Teams Senior Consumer Insights Consultant Relationship Specialty Start Date End Date Ely Diaz MD [address] [place] [address] [place] [address] PCP - General Internal Medicine 04/14/19
== END 2025-05-27 10:35 | disposition home or self-care (01) ==
LOC: HO.HSMS 09:38
PROVIDERS: PCP Internal Medicine; Visit Provider Physician Assistant Medical
DX: G47.19 Other hypersomnia (principal); R06.83 Snoring; R56.9 Unspecified convulsions
CPT/HCPCS: 99204

== ENCOUNTER → 2025-05-27 09:37 | Outpatient (BNVA) | payer MEDICARE, MEDICAID, SELFPAY | PROVIDERS: PCP Internal Medicine; Visit Provider Physician Assistant Medical | DX: G47.19 Other hypersomnia (principal); R06.83 Snoring; R56.9 Unspecified convulsions | CPT/HCPCS: 99202 ==